=== PATIENT | female | born 1980 | race Caucasian/White ===

== ENCOUNTER 2018-08-22 17:31 | Inpatient (IN) | payer BC ==
[~2018-08-22] VITALS: Ht 157.5 cm; Wt 72.1 kg
--- NOTE | 2018-08-22 18:00 | NUR ---
ED Nurse Note: PT WALKED IN TO ER TODAY FROM HOME. AOX4. PT STATES SHE HAS HX OF ALCOHOLISM AND HAS BEEN BINGE DRINKING FOR THE PAST 2 WEEKS. PT STATES SHE DRINKS ANYWHERE FROM 750ML - 1200ML OF VODKA A DAY. LAST DRINK X TODAY AROUND 0400. PT C/O UPPER ABDOMINAL PAIN, 10/10 WITH ACID REFLUX. PT ALSO C/O NAUSEA AND 3 EPISODES OF VOMITING X THIS AM.
[2018-08-22 18:01] VITALS: BP 142/92
[2018-08-22] MEDS ORDERED: LORazepam Inj 2mg/ml 1ml IV ONE (18:30)
[2018-08-22 18:47] LABS: APPEARANCE,URINE CLEAR; BASOPHILS % (AUTO) 1.1 % (0.0-2.0); BILIRUBIN, URINE NEGATIVE (NEGATIVE); COLOR,URINE PALE YELLOW; EOSINOPHILS % (AUTO) 1.3 % (0.0-3.0); GLUCOSE, URINE (UA) NEGATIVE (NEGATIVE); HEMATOCRIT 41.5 % (37.0-47.0); KETONES,URINE NEGATIVE (NEGATIVE); LEUKOCYTE ESTERASE ,URINE NEGATIVE (NEGATIVE); LYMPHOCYTES % (AUTO) 16.3 % (20.0-45.0); MEAN CORPUSCULAR VOLUME 91 FL (80-99); MONOCYTES % (AUTO) 3.4 % (1.0-10.0); NEUTROPHILS % (AUTO) 77.9 % (45.0-75.0); NITRITE,URINE NEGATIVE (NEGATIVE); PH,URINE 8 (4.5-8.0); PLATELET COUNT 278 K/UL (150-450); PROTEIN,URINE NEGATIVE (NEGATIVE); RED BLOOD COUNT 4.57 M/UL (4.20-5.40); RED CELL DISTRIBUTION WIDTH 12.9 % (11.6-14.8); UROBILINOGEN,URINE NORMAL MG/DL (0.0-1.0)
[2018-08-22 19:06] LABS: ANION GAP 7 mmol/L (5-15); BLOOD UREA NITROGEN 8 mg/dL (7-18); CALCIUM 8.3 MG/DL (8.5-10.1); CARBON DIOXIDE 30 MMOL/L (21-32); CHLORIDE 101 MMOL/L (98-107); CREATININE 0.7 MG/DL (0.55-1.30); POTASSIUM 3.8 MMOL/L (3.5-5.1); SODIUM 138 MMOL/L (136-145)
[2018-08-22 19:11] LABS: ALANINE AMINOTRANSFERASE 37 U/L (12-78); ALBUMIN 3.4 G/DL (3.4-5.0); ALBUMIN/GLOBULIN RATIO 0.9 (1.0-2.7); ALKALINE PHOSPHATASE 103 U/L (46-116); ASPARTATE AMINO TRANSFERASE 39 U/L (15-37); BILIRUBIN,TOTAL 0.3 MG/DL (0.2-1.0)
--- NOTE | 2018-08-22 19:15 | NUR ---
ED Nurse Note: REPORT GIVEN TO JERRY PRYOR.
--- NOTE | 2018-08-22 19:35 | NUR ---
ED Nurse Note: RECIEVED REPORT FROM AM NURSE TO RESUME CARE, PT RESTING QUIETLY IN BED, AROUSES EASILY TO [facility], PT HERE FOR ABD PAIN AND WAITING FOR ADMITTOIN PLACEMENT, PT HAS PATENT SALINE LOCK IN LEFT ARM, PLACED PT ON CARDIAC MONITORING, V/S STABLE, PT DENIES CP, ABD PAIN, OR ANY PAIN AT THIS TIME, WILL RESUME CARE ORDERED AND CONTINUE TO CLOSELY MONITOR.
[2018-08-22 20:15] VITALS: BP 136/88
[2018-08-22] MEDS ORDERED: Morphine Sulfate 4mg/ml Inj (IV USE ONLY) IVP ONE (21:30)
[2018-08-22] MEDS ORDERED: Morphine Sulfate 2mg/ml Inj(IV/IM USE ONLY) IVP PRN (21:30)
[2018-08-22] MEDS ORDERED: Thiamine HCl 100 MG, Folic Acid 1 MG, Magnesium Sulfate 2,000 MG, Multivitamin - 12 Inj... IV SCH ×5 (21:30)
[2018-08-22] MEDS ORDERED: Mylanta II UD 30ml ORAL PRN (21:30)
[2018-08-22] MEDS ORDERED: Zolpidem 5mg tab ORAL PRN (21:30)
[2018-08-22] MEDS ORDERED: Miralax 17gm pkt ORAL PRN (21:30)
--- NOTE | 2018-08-22 21:33 | Emergency Room Report ---
History of Present Illness General Chief Complaint: Abdominal Pain Source: Patient Present Illness HPI 37-year-old female presents ED for evaluation. Patient complaining of abdominal pain with nausea and vomiting. States she's been drinking for the last 2 weeks. History of chronic alcohol use. Pain is sharp, epigastric, 10 out of 10, nonradiating. Denies fevers or chills. Denies chest pain or shortness of breath. No other aggravating relieving factors. Denies any other associated symptoms Allergies: Coded Allergies: No Known Allergies (Unverified , 08/22/18) Patient History Past Medical History: none Past Surgical History: none Pertinent Family History: none Social History: Reports: alcohol use; Denies: smoking, drug use Last Menstrual Period: 5 days Now: No Immunizations: UTD Reviewed Nursing Documentation: PMH: Agreed; PSxH: Agreed Nursing Documentation-PMH Past Medical History: No History, Except For Hx Cancer: Yes - skin History Of Psychiatric Problem: Yes - etoh abuse Review of Systems All Other Systems: negative except mentioned in HPI Physical Exam Vital Signs Date Time Temp Pulse Resp B/P (MAP) Pulse Ox O2 Delivery O2 Flow Rate FiO2 08/22/18 17:34 98.1 85 18 150/113 98 Room Air Sp02 EP Interpretation: reviewed, normal General Appearance: no apparent distress, alert, GCS 15, non-toxic Head: normocephalic, atraumatic Eyes: bilateral eye normal inspection, bilateral eye PERRL ENT: hearing grossly normal, normal pharynx, no angioedema, normal voice Neck: full range of motion, supple/symm/no masses Respiratory: chest non-tender, lungs clear, normal breath sounds, speaking full sentences Cardiovascular #1: regular rate, rhythm, no edema Cardiovascular #2: 2+ carotid (R), 2+ carotid (L), 2+ radial (R), 2+ radial (L) , 2+ dorsalis pedis (R), 2+ dorsalis pedis (L) Gastrointestinal: normal bowel sounds, soft, non-distended, no guarding, no rebound, tenderness - epigastric Rectal: deferred Genitourinary: normal inspection, no CVA tenderness Musculoskeletal: back normal, gait/station normal, normal range of motion, non- tender Neurologic: alert, oriented x3, responsive, motor strength/tone normal, sensory intact, speech normal Psychiatric: judgement/insight normal, memory normal, mood/affect normal, no suicidal/homicidal ideation Reflexes: 3+ bicep (R), 3+ bicep (L), 3+ tricep (R), 3+ tricep (L), 3+ knee (R) , 3+ knee (L) Skin: normal color, no rash, warm/dry, well hydrated Lymphatic: no adenopathy Medical Decision Making Diagnostic Impression: Primary Impression: Pancreatitis Qualified Codes: K85.20 - Alcohol induced acute pancreatitis without necrosis or infection Additional Impression: Alcohol intoxication Qualified Codes: F10.929 - Alcohol use, unspecified with intoxication, unspecified ER Course Hospital Course 37 yo F presents to ED c/o abd pain, vomiting Differential diagnoses include: BPH, cystitis, pyelonephritis, kidney stone Clinical course Patient placed on stretcher. phototypesetting equipment monitor. After initial history and physical I ordered labs, IV fluids, UA, pain medication Labs - no leukocytosis, Hb/Hct stable. electrolytes ok. Lipase > 2000, LFTs ok IV fluids given. Pain meds given Case discussed with Dr. Alberto and he agreed to accept the patient to his service for further care and support I feel this is a highly complex case requiring extensive working including EKG/ Rhythm strip, Xray/CT/US, Blood/urine lab work, repeat exams while in ED, and administration of strong opiates/narcotics for pain control, admission to hospital or close patient follow up. Diagnosis - acute pancreatitis, alcohol intoxication Patient admitted to floor in serious condition Labs Test 08/22/18 18:30 White Blood Count 11.0 K/UL (4.8-10.8) Red Blood Count 4.57 M/UL (4.20-5.40) Hemoglobin 14.0 G/DL (12.0-16.0) Hematocrit 41.5 % (37.0-47.0) Mean Corpuscular Volume 91 FL (80-99) Mean Corpuscular Hemoglobin 30.6 PG (27.0-31.0) Mean Corpuscular Hemoglobin Concent 33.7 G/DL (32.0-36.0) Red Cell Distribution Width 12.9 % (11.6-14.8) Platelet Count 278 K/UL (150-450) Mean Platelet Volume 4.7 FL (6.5-10.1) Neutrophils (%) (Auto) 77.9 % (45.0-75.0) Lymphocytes (%) (Auto) 16.3 % (20.0-45.0) Monocytes (%) (Auto) 3.4 % (1.0-10.0) Eosinophils (%) (Auto) 1.3 % (0.0-3.0) Basophils (%) (Auto) 1.1 % (0.0-2.0) Urine Color Pale yellow Urine Appearance Clear Urine pH 8 (4.5-8.0) Urine Specific [place] 1.010 (1.005-1.035) Urine Protein Negative (NEGATIVE) Urine Glucose (UA) Negative (NEGATIVE) Urine Ketones Negative (NEGATIVE) Urine Blood 3+ (NEGATIVE) Urine Nitrite Negative (NEGATIVE) Urine Bilirubin Negative (NEGATIVE) Urine Urobilinogen Normal MG/DL (0.0-1.0) Urine Leukocyte Esterase Negative (NEGATIVE) Urine RBC 2-4 /HPF (0 - 2) Urine WBC 0 /HPF (0 - 2) Urine Squamous Epithelial Cells Few /LPF (NONE/OCC) Urine Bacteria Moderate /HPF (NONE) Urine HCG, Qualitative Negative (NEGATIVE) Sodium Level 138 MMOL/L (136-145) Potassium Level 3.8 MMOL/L (3.5-5.1) Chloride Level 101 MMOL/L (98-107) Carbon Dioxide Level 30 MMOL/L (21-32) Anion Gap 7 mmol/L (5-15) Blood Urea Nitrogen 8 mg/dL (7-18) Creatinine 0.7 MG/DL (0.55-1.30) Estimat Glomerular Filtration Rate > 60 mL/min (>60) Glucose Level 103 MG/DL (74-106) Calcium Level 8.3 MG/DL (8.5-10.1) Total Bilirubin 0.3 MG/DL (0.2-1.0) Aspartate Amino Transf (AST/SGOT) 39 U/L (15-37) Alanine Aminotransferase (ALT/SGPT) 37 U/L (12-78) Alkaline Phosphatase 103 U/L (46-116) Total Protein 7.3 G/DL (6.4-8.2) Albumin 3.4 G/DL (3.4-5.0) Globulin 3.9 g/dL Albumin/Globulin Ratio 0.9 (1.0-2.7) Lipase > 2000 U/L (73-393) Human Chorionic Gonadotropin, Qual Negative (NEGATIVE) Serum Alcohol 60 mg/dL Last Vital Signs Date Time Temp Pulse Resp B/P (MAP) Pulse Ox O2 Delivery O2 Flow Rate FiO2 08/22/18 18:01 98.4 82 17 142/92 99 Room Air Status: improved Disposition: ADMITTED INPATIENT Condition: Serious Referrals: NOT CHOSEN IPA/,REFERRING (PCP) Pranav Robb MD Aug 22, 2018 21:33
--- NOTE | 2018-08-22 22:00 | NUR ---
ED Nurse Note: PT BEING ADMITTED AN NOW HAS ROOM FOR ADMISSION, REPORT CALLED TO FLOOR NURSE SEANRN, PT IS AWAKE AND ALERT, PREVIOUSLY MEDICATED FOR ABD PAIN WITH MORPHINE, MEDS EFFECTIVE, NO NAUSEA, IV SITE INTACT, PT BEING TAKEN TO FLOOR UNIT VIA GURNEY WITH ER-TECH, BELONGINGS LIST COMPLETED, ALL FORMS WITH PT, NAD NOTED DURING PT TRANSPSORT TO UNIT.
--- NOTE | 2018-08-22 22:40 | NUR ---
NURSE NOTES: Received pt from E.D> via melody, ARLYN, pt ambulated from gurney to the bed without any difficulty, gait steady. IV L AC #22 saline lock, patent and intact. Pt c/o abdominal pain 03/13. Will administer pain medication and admit pt to floor. Bed in lowest position and locked, side rails up x 2, call light within reach. Will continue to monitor.
--- NOTE | 2018-08-22 22:51 | NUR ---
NURSE NOTES: Pt c/o sever abdominal pain /. Morphine 1 IVP given.
--- NOTE | 2018-08-22 23:00 | NUR ---
NURSE NOTES: Pt still c/o abdominal pain. Pt vomited clear greenish emesis approx. 200ml. Informed pt that nausea medication Zofran is not due yet. Paged Dr. Smart for pt c/o abd. pain and nausea. Awaiting for call back.
--- NOTE | 2018-08-23 00:30 | NUR ---
NURSE NOTES: Received order from Dr. Smart to change Morphine and Zofran to q 3 hours. Per JERRY Cardona, she spoke with Samuel (pharmacist), per Samuel, enter these new orders once the computer comes back on.
--- NOTE | 2018-08-23 05:30 | NUR ---
NURSE NOTES: Pt is requesting additional pain medication. Pt states Morphine 1mg IVP is not helping. Paged Dr. Smart, Awaiting for response.
[2018-08-23] MEDS ORDERED: Morphine Sulfate 2mg/ml Inj(IV/IM USE ONLY) IVP PRN (06:15)
[2018-08-23 07:33] LABS: BASOPHILS % (AUTO) 0.6 % (0.0-2.0); EOSINOPHILS % (AUTO) 0.4 % (0.0-3.0); HEMATOCRIT 43.6 % (37.0-47.0); HEMOGLOBIN 15.1 G/DL (12.0-16.0); LYMPHOCYTES % (AUTO) 12.3 % (20.0-45.0); MEAN CORPUSCULAR VOLUME 90 FL (80-99); MONOCYTES % (AUTO) 3.7 % (1.0-10.0); PLATELET COUNT 286 K/UL (150-450); RED BLOOD COUNT 4.82 M/UL (4.20-5.40); RED CELL DISTRIBUTION WIDTH 12.7 % (11.6-14.8); WHITE BLOOD COUNT 10.5 K/UL (4.8-10.8)
[2018-08-23] MEDS ORDERED: NKM (07:44)
--- NOTE | 2018-08-23 07:45 | NUR ---
NURSE NOTES: Report received from outgoing RN, rounds made. Patient sleeping in supine position in bed. No distress noted on RA. IV infusing to LAC as ordered. Call light in reach, bed in lowest position, will continue to monitor.
--- NOTE | 2018-08-23 07:48 | NUR ---
HAND-OFF: Report given to JERRY Dow. Pt in stable condition.
[2018-08-23 07:52] LABS: ALANINE AMINOTRANSFERASE 31 U/L (12-78); ALBUMIN 3.2 G/DL (3.4-5.0); ALBUMIN/GLOBULIN RATIO 0.9 (1.0-2.7); ALKALINE PHOSPHATASE 106 U/L (46-116); ANION GAP 9 mmol/L (5-15); ASPARTATE AMINO TRANSFERASE 30 U/L (15-37); BILIRUBIN,TOTAL 0.6 MG/DL (0.2-1.0); BLOOD UREA NITROGEN 7 mg/dL (7-18); CARBON DIOXIDE 26 MMOL/L (21-32); CHLORIDE 100 MMOL/L (98-107); CREATININE 0.7 MG/DL (0.55-1.30); POTASSIUM 3.3 MMOL/L (3.5-5.1); SODIUM 135 MMOL/L (136-145)
[2018-08-23 08:00] VITALS: BP 138/96
[2018-08-23 08:02] LABS: PHOSPHORUS 3.3 MG/DL (2.5-4.9)
[2018-08-23 08:05] LABS: AMYLASE 742 U/L (25-115)
--- NOTE | 2018-08-23 08:10 | NUR ---
NURSE NOTES: Dr. Alberto notified of Amylase critical level 732. No orders received.
--- NOTE | 2018-08-23 08:44 | NUR ---
CASE MANAGEMENT:REVIEW 37 YR OLD FEMALE TO ER CC: DRINKING X2 WEEKS. NOW W/ABD PAIN N/V SI: PANCREATITIS. ETOH INTOXICATION 98.1 85 18 150/113 98% ON RA WBC+11.0 LIPASE>2000 AMYLASE+742 IS: IV ZOFRAN IV PEPCID 1L NS BOLUS IV ATIVAN : TO TELEMETRY INTERQUAL CRITERIA MET
[2018-08-23] MEDS: Heparin 5000 units/ml inj SUBQ SCH ×2 (09:29→22:18)
[2018-08-23] MEDS: LORazepam Inj 2mg/ml 1ml IV PRN ×3 (09:32→23:49)
--- NOTE | 2018-08-23 10:41 | General Progress Note ---
Assessment/Plan Problem List: (1) Pancreatitis ICD Codes: K85.90 - Acute pancreatitis without necrosis or infection, unspecified SNOMED: 02696755 Qualifiers: Qualified Codes: K85.20 - Alcohol induced acute pancreatitis without necrosis or infection (2) Alcohol intoxication ICD Codes: F10.929 - Alcohol use, unspecified with intoxication, unspecified SNOMED: 99971761 Qualifiers: Qualified Codes: F10.929 - Alcohol use, unspecified with intoxication, unspecified Assessment/Plan npo ivf banana bag repeat labs pain control Subjective ROS Limited/Unobtainable: Yes Allergies: Coded Allergies: No Known Allergies (Unverified , 08/22/18) Subjective abd pain Objective Last 24 Hour Vital Signs Date Time Temp Pulse Resp B/P (MAP) Pulse Ox O2 Delivery O2 Flow Rate FiO2 08/23/18 08:00 98.1 77 18 138/96 (110) 99 08/23/18 06:08 Room Air 08/23/18 05:44 98.4 82 17 136/88 99 Room Air 08/22/18 20:15 98.4 82 17 136/88 99 Room Air 08/22/18 18:01 98.4 82 17 142/92 99 Room Air 08/22/18 18:01 82 17 Room Air 08/22/18 17:34 98.1 85 18 150/113 98 Room Air Intake and Output 08/22/18 08/23/18 19:00 07:00 Intake Total 1240 ml Output Total 200 ml Balance 1040 ml Intake Oral 240 ml IV Total 1000 ml Output Emesis 200 ml # Voids 1 5 Laboratory Tests 08/22/18 18:30: White Blood Count 11.0H, Red Blood Count 4.57, Hemoglobin 14.0, Hematocrit 41.5 , Mean Corpuscular Volume 91, Mean Corpuscular Hemoglobin 30.6, Mean Corpuscular Hemoglobin Concent 33.7, Red Cell Distribution Width 12.9, Platelet Count 278, Mean Platelet Volume 4.7L, Neutrophils (%) (Auto) 77.9H, Lymphocytes (%) (Auto) 16.3L, Monocytes (%) (Auto) 3.4, Eosinophils (%) (Auto) 1.3, Basophils (%) (Auto) 1.1, Urine Color Pale yellow, Urine Appearance Clear, Urine pH 8, Urine Specific [place] 1.010, Urine Protein Negative, Urine Glucose (UA) Negative, Urine Ketones Negative, Urine Blood 3+H, Urine Nitrite Negative, Urine Bilirubin Negative, Urine Urobilinogen Normal, Urine Leukocyte Esterase Negative, Urine RBC 2-4H, Urine WBC 0, Urine Squamous Epithelial Cells Few, Urine Bacteria ModerateH, Urine HCG, Qualitative Negative, Sodium Level 138, Potassium Level 3.8, Chloride Level 101, Carbon Dioxide Level 30, Anion Gap 7, Blood Urea Nitrogen 8, Creatinine 0.7, Estimat Glomerular Filtration Rate > 60, Glucose Level 103, Calcium Level 8.3L, Total Bilirubin 0.3, Aspartate Amino Transf (AST/SGOT) 39H, Alanine Aminotransferase (ALT/SGPT) 37, Alkaline Phosphatase 103, Total Protein 7.3, Albumin 3.4, Globulin 3.9, Albumin/Globulin Ratio 0.9L, Lipase > 2000H, Human Chorionic Gonadotropin, Qual Negative, Serum Alcohol 60 08/23/18 06:27: White Blood Count 10.5, Red Blood Count 4.82, Hemoglobin 15.1, Hematocrit 43.6, Mean Corpuscular Volume 90, Mean Corpuscular Hemoglobin 31.2H, Mean Corpuscular Hemoglobin Concent 34.6, Red Cell Distribution Width 12.7, Platelet Count 286, Mean Platelet Volume 5.0L, Neutrophils (%) (Auto) 83.0H, Lymphocytes (%) (Auto) 12.3L, Monocytes (%) (Auto) 3.7, Eosinophils (%) (Auto) 0.4, Basophils (%) (Auto ) 0.6, Sodium Level 135L, Potassium Level 3.3L, Chloride Level 100, Carbon Dioxide Level 26, Anion Gap 9, Blood Urea Nitrogen 7, Creatinine 0.7, Estimat Glomerular Filtration Rate > 60, Glucose Level 108H, Calcium Level 8.0L, Total Bilirubin 0.6, Aspartate Amino Transf (AST/SGOT) 30, Alanine Aminotransferase ( ALT/SGPT) 31, Alkaline Phosphatase 106, Total Protein 6.9, Albumin 3.2L, Globulin 3.7, Albumin/Globulin Ratio 0.9L, Lipase > 2000H, Erythrocyte Sedimentation Rate 6, Phosphorus Level 3.3, Magnesium Level 1.7L, C-Reactive Protein, Quantitative < 0.4, Amylase Level 742*H Height (Feet): 5 Height (Inches): 2.00 Weight (Pounds): 160 General Appearance: alert EENT: normal ENT inspection Neck: supple Cardiovascular: tachycardia Respiratory/Chest: decreased breath sounds Abdomen: soft, hypoactive bowel sounds, tender Extremities: non-tender Joce Adams MD Aug 23, 2018 10:40
[2018-08-23] MEDS ORDERED: D5 1/2NS w/KCl 20mEq 1,000 ML IV SCH (11:30)
[2018-08-23 12:00] VITALS: BP 152/97
--- NOTE | 2018-08-23 12:47 | NUR ---
*-* INSURANCE *-* AVAILABLE CLINICALS, REVIEW AND INTERQUAL FAXED TO: [facility] FAX ALL CLINICALS TO [phone]
--- NOTE | 2018-08-23 12:54 | Consultation ---
History of Present Illness General Date patient seen: Aug 23, 2018 Chief Complaint: Abdominal Pain Present Illness HPI 37-year-old female with hx of ETOH presented to ED for evaluation of abdominal pain with nausea and vomiting. States she's been drinking for the last 2 weeks. History of chronic alcohol use. Pain is sharp, epigastric, 10 out of 10, nonradiating. She was diagnosed to have acute pancreatitis and admitted for further evaluation. Allergies: Coded Allergies: No Known Allergies (Unverified , 08/22/18) Medication History Scheduled No Known Medications* (NKM - No Known Medications*), 0 ., (Reported) Patient History Healthcare decision maker Resuscitation status Full Code Advanced Directive on File No Past Medical/Surgical History Past Medical/Surgical History: (1) Alcohol abuse Review of Systems All Other Systems: negative except mentioned in HPI Physical Exam General Appearance: WD/WN, mild distress Lines, tubes and drains: peripheral, central line HEENT: normocephalic, atraumatic Neck: non-tender, normal alignment Respiratory/Chest: chest wall non-tender, lungs clear Cardiovascular/Chest: normal peripheral pulses, normal rate Abdomen: normal bowel sounds Genitourinary/Rectal: normal genital exam Last 24 Hour Vital Signs Date Time Temp Pulse Resp B/P (MAP) Pulse Ox O2 Delivery O2 Flow Rate FiO2 08/23/18 08:00 98.1 77 18 138/96 (110) 99 08/23/18 06:08 Room Air 08/23/18 05:44 98.4 82 17 136/88 99 Room Air 08/22/18 20:15 98.4 82 17 136/88 99 Room Air 08/22/18 18:01 98.4 82 17 142/92 99 Room Air 08/22/18 18:01 82 17 Room Air 08/22/18 17:34 98.1 85 18 150/113 98 Room Air Intake and Output 08/22/18 08/23/18 19:00 07:00 Intake Total 1240 ml Output Total 200 ml Balance 1040 ml Intake Oral 240 ml IV Total 1000 ml Output Emesis 200 ml # Voids 1 5 Laboratory Tests Test 08/22/18 18:30 08/23/18 06:27 White Blood Count 11.0 K/UL (4.8-10.8) H 10.5 K/UL (4.8-10.8) Red Blood Count 4.57 M/UL (4.20-5.40) 4.82 M/UL (4.20-5.40) Hemoglobin 14.0 G/DL (12.0-16.0) 15.1 G/DL (12.0-16.0) Hematocrit 41.5 % (37.0-47.0) 43.6 % (37.0-47.0) Mean Corpuscular Volume 91 FL (80-99) 90 FL (80-99) Mean Corpuscular Hemoglobin 30.6 PG (27.0-31.0) 31.2 PG (27.0-31.0) H Mean Corpuscular Hemoglobin Concent 33.7 G/DL (32.0-36.0) 34.6 G/DL (32.0-36.0) Red Cell Distribution Width 12.9 % (11.6-14.8) 12.7 % (11.6-14.8) Platelet Count 278 K/UL (150-450) 286 K/UL (150-450) Mean Platelet Volume 4.7 FL (6.5-10.1) L 5.0 FL (6.5-10.1) L Neutrophils (%) (Auto) 77.9 % (45.0-75.0) H 83.0 % (45.0-75.0) H Lymphocytes (%) (Auto) 16.3 % (20.0-45.0) L 12.3 % (20.0-45.0) L Monocytes (%) (Auto) 3.4 % (1.0-10.0) 3.7 % (1.0-10.0) Eosinophils (%) (Auto) 1.3 % (0.0-3.0) 0.4 % (0.0-3.0) Basophils (%) (Auto) 1.1 % (0.0-2.0) 0.6 % (0.0-2.0) Urine Color Pale yellow Urine Appearance Clear Urine pH 8 (4.5-8.0) Urine Specific [place] 1.010 (1.005-1.035) Urine Protein Negative (NEGATIVE) Urine Glucose (UA) Negative (NEGATIVE) Urine Ketones Negative (NEGATIVE) Urine Blood 3+ (NEGATIVE) H Urine Nitrite Negative (NEGATIVE) Urine Bilirubin Negative (NEGATIVE) Urine Urobilinogen Normal MG/DL (0.0-1.0) Urine Leukocyte Esterase Negative (NEGATIVE) Urine RBC 2-4 /HPF (0 - 2) H Urine WBC 0 /HPF (0 - 2) Urine Squamous Epithelial Cells Few /LPF (NONE/OCC) Urine Bacteria Moderate /HPF (NONE) H Urine HCG, Qualitative Negative (NEGATIVE) Sodium Level 138 MMOL/L (136-145) 135 MMOL/L (136-145) L Potassium Level 3.8 MMOL/L (3.5-5.1) 3.3 MMOL/L (3.5-5.1) L Chloride Level 101 MMOL/L (98-107) 100 MMOL/L (98-107) Carbon Dioxide Level 30 MMOL/L (21-32) 26 MMOL/L (21-32) Anion Gap 7 mmol/L (5-15) 9 mmol/L (5-15) Blood Urea Nitrogen 8 mg/dL (7-18) 7 mg/dL (7-18) Creatinine 0.7 MG/DL (0.55-1.30) 0.7 MG/DL (0.55-1.30) Estimat Glomerular Filtration Rate > 60 mL/min (>60) > 60 mL/min (>60) Glucose Level 103 MG/DL (74-106) 108 MG/DL (74-106) H Calcium Level 8.3 MG/DL (8.5-10.1) L 8.0 MG/DL (8.5-10.1) L Total Bilirubin 0.3 MG/DL (0.2-1.0) 0.6 MG/DL (0.2-1.0) Aspartate Amino Transf (AST/SGOT) 39 U/L (15-37) H 30 U/L (15-37) Alanine Aminotransferase (ALT/SGPT) 37 U/L (12-78) 31 U/L (12-78) Alkaline Phosphatase 103 U/L (46-116) 106 U/L (46-116) Total Protein 7.3 G/DL (6.4-8.2) 6.9 G/DL (6.4-8.2) Albumin 3.4 G/DL (3.4-5.0) 3.2 G/DL (3.4-5.0) L Globulin 3.9 g/dL 3.7 g/dL Albumin/Globulin Ratio 0.9 (1.0-2.7) L 0.9 (1.0-2.7) L Lipase > 2000 U/L (73-393) H > 2000 U/L (73-393) H Human Chorionic Gonadotropin, Qual Negative (NEGATIVE) Serum Alcohol 60 mg/dL Erythrocyte Sedimentation Rate 6 MM/HR (0-20) Phosphorus Level 3.3 MG/DL (2.5-4.9) Magnesium Level 1.7 MG/DL (1.8-2.4) L C-Reactive Protein, Quantitative < 0.4 mg/dL (0.00-0.90) Amylase Level 742 U/L (25-115) *H Microbiology Date/Time Source Procedure Growth Status 08/22/18 18:30 Urine,Clean Catch Urine Culture - Preliminary NO GROWTH Resulted Height (Feet): 5 Height (Inches): 2.00 Weight (Pounds): 160 Medications Current Medications Medications (Trade) Dose Ordered Sig/Chloe Route PRN Reason Start Time Stop Time Status Last Admin Dose Admin Acetaminophen (Tylenol) 650 mg Q4H PRN ORAL fever 08/22/18 21:30 09/21/18 21:29 Al Hydroxide/Mg Hydroxide (Mylanta II) 30 ml Q6H PRN ORAL dyspepsia 08/22/18 21:30 09/21/18 21:29 Chlordiazepoxide (Librium) 25 mg Q6H PRN ORAL Agitation 08/22/18 21:30 08/29/18 21:29 Dextrose (Dextrose 50%) 25 ml Q30M PRN IV Hypoglycemia 08/22/18 21:30 09/21/18 21:29 Dextrose (Dextrose 50%) 50 ml Q30M PRN IV Hypoglycemia 08/22/18 21:30 09/21/18 21:29 Dextrose/ Electrolytes 1,000 ml @ 100 mls/hr Q10H IV 08/23/18 11:30 09/22/18 11:29 Heparin Sodium (Porcine) (Heparin 5000 units/ml) 5,000 units EVERY 12 HOURS SUBQ 08/23/18 09:00 09/22/18 08:59 08/23/18 09:29 Lorazepam (Ativan 2mg/ml 1ml) 2 mg Q1H PRN IV seizures 08/22/18 21:30 08/29/18 21:29 08/23/18 09:32 Morphine Sulfate (Morphine Sulfate) 6 mg Q3H PRN IVP For Pain 08/23/18 07:45 08/30/18 07:44 Ondansetron HCl (Zofran) 4 mg Q3HR PRN IVP Nausea & Vomiting 08/23/18 06:15 09/22/18 06:14 Polyethylene Glycol (Miralax) 17 gm HSPRN PRN ORAL Constipation 08/22/18 21:30 09/21/18 21:29 Thiamine HCl 100 mg/Folic Acid 1 mg/Magnesium Sulfate 2000 mg/ Multivitamins 10 ml/Sodium Chloride 1,015.2 ml @ 125 mls/ hr Q24H IV 08/22/18 21:30 09/21/18 21:29 08/22/18 22:40 Zolpidem Tartrate (Ambien) 5 mg HSPRN PRN ORAL Insomnia 08/22/18 21:30 08/29/18 21:29 Assessment/Plan Problem List: (1) Pancreatitis ICD Codes: K85.90 - Acute pancreatitis without necrosis or infection, unspecified SNOMED: [id number] Qualifiers: Qualified Codes: K85.20 - Alcohol induced acute pancreatitis without necrosis or infection (2) Alcohol abuse ICD Codes: F10.10 - Alcohol abuse, uncomplicated SNOMED: [id number] Assessment/Plan banana bag librium GI evaluation f/u amylase and lipase Lilo Smart MD Aug 23, 2018 12:54
--- NOTE | 2018-08-23 14:58 | History & Physical ---
History and Physical History & Physicial Dion Alberto MD Aug 23, 2018 14:58
[2018-08-23 16:00] VITALS: BP 140/108
--- NOTE | 2018-08-23 18:00 | NUR ---
NURSE NOTES: Patient sleeping on and off throughout the shift, no seizure activity, no NV, no complains of pain. Patient remains safe. Will continue to monitor.
[2018-08-23] MEDS: D5 1/2NS w/KCl 20mEq 1,000 ML IV SCH (19:01)
--- NOTE | 2018-08-23 19:40 | NUR ---
NURSE NOTES: Report taken from JERRY Dow. Patient awake and in bed, A&Ox4. Having complaints about pain in the abdominal region, radiating to her back, 12/11. She has a naltrexone implant left posterior, states that she has been feeling increased pain in the area, contact MD to evaluate. She is continually anxious and cannot find a comfotable way to lay in bed. Will stay ahead of pain with medication orders. Banana bag to be hung, monitor. IV site c/d/i and patent. Continue to monitor, bed in lowest position, call light within reach.
--- NOTE | 2018-08-23 19:45 | NUR ---
HAND-OFF: Report given to Zane EDWARDS.
[2018-08-23] MEDS: Folic Acid 1 MG, Magnesium Sulfate 2,000 MG, Multivitamin - 12 Injection 10 ML in NS w/... IV SCH (22:00)
--- NOTE | 2018-08-23 22:00 | History and Physical Report ---
DATE OF ADMISSION: 08/22/2018 CHIEF COMPLAINT: Abdominal pain. HISTORY OF PRESENT ILLNESS: This is a 37 years old female with past medical history significant for history of skin cancer, status post resection from the abdominal wall, hypothyroidism, who has presented to the hospital complaining about abdominal pain associated with nausea and vomiting. She stated that she has been having a history of extensive alcohol abuse with binge drinking. She stated that the past 2 weeks she has been drinking a lot and subsequently has been started having sharp epigastric 10/10, nonradiating abdominal pain. Shortly after initial evaluation in the emergency, the patient was confirmed to have acute pancreatitis and subsequently was admitted to the hospital for alcohol-induced pancreatitis. PAST MEDICAL HISTORY AND PAST SURGICAL HISTORY: As above, history of hypothyroidism, skin cancer, status post of resection from the abdominal wall. MEDICATIONS: At home, unknown. ALLERGIES: No known drug allergies. SOCIAL HISTORY: Denies any substance abuse. She has binge drinking alcohol problem and she smokes two cigarettes a day. FAMILY HISTORY: Noncontributory. REVIEW OF SYSTEMS: Mostly as above. Denies any dysuria, frequency, or hematuria. Complained about nausea and vomiting. Denies any hemoptysis or hematochezia. Denies any bright red blood per rectum. Denies any suicidal or homicidal ideation. PHYSICAL EXAMINATION: VITAL SIGNS: On admission, temperature 98.1, pulse of 85, respirations 18, blood pressure 150/113, repeat one is 138/96. GENERAL: The patient is awake, responsive, in no acute distress. HEAD AND NECK: Pupils are equal and reactive to light. Extraocular movements are intact. Neck was supple. No JVD. LUNGS: Good air entry. No wheezes or rales. HEART: S1, S2. Regular rhythm. No gallops. ABDOMEN: Soft, nondistended. Tender on the left side of abdomen. No rebound tenderness. EXTREMITIES: No cyanosis, clubbing, or edema. NEUROLOGIC: Cranial nerves II through XII are grossly intact. Motor is 5/5 in all extremities. Gait is intact. RECTAL: Refused and deferred. GENITOURINARY: Refused and deferred. PSYCHIATRIC: Mood and affect is intact. LABORATORY AND DIAGNOSTIC DATA: Laboratory on admission, WBC of 11, hemoglobin 14, hematocrit 41, and platelets is 278. Sodium 138, potassium 3.8, chloride 101, bicarbonate 30, BUN 8, and creatinine 0.7. Beta-HCG is negative. Lipase is greater than 2000. Amylase is 742 and CRP of less than 0.4. Magnesium 1.7. Urinalysis, +3 blood, moderate urine bacteria. Urine alcohol level is 60. ASSESSMENT: 1. Severe abdominal pain, most likely secondary to alcohol-induced pancreatitis. 2. History of alcoholism. 3. Hypokalemia. 4. Hypothyroidism. 5. History of skin cancer, status post resection. PLAN: Admit the patient to the medical floor. We will start the patient on a clear liquid diet, advance as tolerated. Follow up with Dr. Adams consultation from GI. continue on a banana bag and Librium, and monitor amylase and lipase. Code status, Full Code. DVT prophylaxis, SCD. Dion Alberto M.D. DR: JOELLE JOB#: [id number] CC:
[2018-08-23] MEDS: Thiamine HCl 100 MG in D5W 55 ML IV SCH (22:01)
[2018-08-23] MEDS: Morphine Sulfate 4mg/ml Inj (IV USE ONLY) IVP PRN (22:21)
[2018-08-24] VITALS: BP 124/78
[2018-08-24] MEDS: LORazepam Inj 2mg/ml 1ml IV PRN ×2 (01:40→05:48)
[2018-08-24] MEDS: D5 1/2NS w/KCl 20mEq 1,000 ML IV SCH ×2 (02:20→15:35)
[2018-08-24] MEDS: chlordiazePOXIDE 25mg Cap ORAL PRN ×2 (03:25→16:17)
[2018-08-24 04:00] VITALS: BP 128/82
[2018-08-24 06:40] LABS: BASOPHILS % (AUTO) 0.4 % (0.0-2.0); EOSINOPHILS % (AUTO) 2.2 % (0.0-3.0); HEMATOCRIT 39.8 % (37.0-47.0); HEMOGLOBIN 13.6 G/DL (12.0-16.0); LYMPHOCYTES % (AUTO) 13.2 % (20.0-45.0); MEAN CORPUSCULAR VOLUME 91 FL (80-99); MONOCYTES % (AUTO) 3.9 % (1.0-10.0); NEUTROPHILS % (AUTO) 80.3 % (45.0-75.0); PLATELET COUNT 242 K/UL (150-450); RED BLOOD COUNT 4.37 M/UL (4.20-5.40); RED CELL DISTRIBUTION WIDTH 12.9 % (11.6-14.8); WHITE BLOOD COUNT 8.2 K/UL (4.8-10.8)
[2018-08-24 07:11] LABS: ALANINE AMINOTRANSFERASE 24 U/L (12-78); ALBUMIN 2.9 G/DL (3.4-5.0); ALBUMIN/GLOBULIN RATIO 0.8 (1.0-2.7); ALKALINE PHOSPHATASE 102 U/L (46-116); ANION GAP 8 mmol/L (5-15); ASPARTATE AMINO TRANSFERASE 28 U/L (15-37); BILIRUBIN,TOTAL 0.6 MG/DL (0.2-1.0); BLOOD UREA NITROGEN 5 mg/dL (7-18); CALCIUM 7.9 MG/DL (8.5-10.1); CARBON DIOXIDE 27 MMOL/L (21-32); CHLORIDE 101 MMOL/L (98-107); CREATININE 0.6 MG/DL (0.55-1.30); POTASSIUM 3.8 MMOL/L (3.5-5.1); SODIUM 136 MMOL/L (136-145)
--- NOTE | 2018-08-24 07:16 | NUR ---
HAND-OFF: Report given to JERRY Ramos. Patient asleep, VS stable.
[2018-08-24 07:28] LABS: AMYLASE 1123 U/L (25-115)
[2018-08-24 07:32] LABS: PHOSPHORUS 2.7 MG/DL (2.5-4.9)
[2018-08-24 08:00] VITALS: BP 130/89
--- NOTE | 2018-08-24 08:00 | NUR ---
NURSE NOTES: RECEIVED PATIENT IN BED, RESTING AND ALERT x4. NO SIGNS OF RESPIRATORY DISTRESS. IV INTACT RUNNING FLUIDS. BED IN LOWEST POSITION, CALL LIGHT WITHIN REACH. WILL CONTINUE TO MONITOR.
[2018-08-24] MEDS: Morphine Sulfate 4mg/ml Inj (IV USE ONLY) IVP PRN ×5 (08:29→21:56)
[2018-08-24] MEDS: Heparin 5000 units/ml inj SUBQ SCH ×2 (08:37→22:05)
--- NOTE | 2018-08-24 11:00 | NUR ---
NURSE NOTES: DR DOMINGUEZ MADE AWARE OF CRITICAL LAB VALUE FOR AMYLASE. VERBALIZED THAT PATIENT HAS BEEN HAVING LOW PO INTAKE AND STILL VERY NAUSEAUS WITH 1 EP OF VOMITING. NO NEW ORDERS. WILL CONTINUE TO MONITOR.
--- NOTE | 2018-08-24 11:23 | Pulmonology Progress Note ---
Assessment/Plan Problems: (1) Pancreatitis (2) Alcohol abuse Assessment/Plan npo iv fluids Ct pancreas increase morphine to 8 mg Subjective ROS Limited/Unobtainable: No Constitutional: Reports: no symptoms HEENT: Repors: no symptoms Respiratory: Reports: no symptoms Allergies: Coded Allergies: No Known Allergies (Unverified , 08/22/18) Objective Last 24 Hour Vital Signs Date Time Temp Pulse Resp B/P (MAP) Pulse Ox O2 Delivery O2 Flow Rate FiO2 08/24/18 09:00 Room Air 08/24/18 08:00 99.0 107 20 130/89 (103) 97 08/24/18 04:00 98.5 85 18 128/82 (97) 96 08/24/18 00:00 98.7 87 18 124/78 (93) 95 08/23/18 21:00 Room Air 08/23/18 16:00 98.0 91 18 140/108 (119) 98 08/23/18 12:00 98.5 88 18 152/97 (115) 99 Intake and Output 08/23/18 08/24/18 19:00 07:00 Intake Total 625 ml 800 ml Balance 625 ml 800 ml Intake Oral 500 ml 800 ml IV Total 125 ml # Voids 2 4 Objective General Appearance: WD/WN HEENT: normocephalic, atraumatic Respiratory/Chest: chest wall non-tender, lungs clear Breasts: no masses Cardiovascular: normal rate, regularly irregular Abdomen: soft, non tender, non distended Genitourinary: normal external genitalia Extremities: no clubbing Skin: no rash Microbiology Date/Time Source Procedure Growth Status 08/22/18 18:30 Urine,Clean Catch Urine Culture - Final Mixed Gram Positive Organism Complete Laboratory Tests 08/24/18 04:45: White Blood Count 8.2, Red Blood Count 4.37, Hemoglobin 13.6, Hematocrit 39.8, Mean Corpuscular Volume 91, Mean Corpuscular Hemoglobin 31.2H, Mean Corpuscular Hemoglobin Concent 34.2, Red Cell Distribution Width 12.9, Platelet Count 242, Mean Platelet Volume 5.4L, Neutrophils (%) (Auto) 80.3H, Lymphocytes (%) (Auto) 13.2L, Monocytes (%) (Auto) 3.9, Eosinophils (%) (Auto) 2.2, Basophils (%) (Auto ) 0.4, Erythrocyte Sedimentation Rate 20, Sodium Level 136, Potassium Level 3.8 , Chloride Level 101, Carbon Dioxide Level 27, Anion Gap 8, Blood Urea Nitrogen 5L, Creatinine 0.6, Estimat Glomerular Filtration Rate > 60, Glucose Level 94, Calcium Level 7.9L, Phosphorus Level 2.7, Magnesium Level 2.3, Total Bilirubin 0.6, Aspartate Amino Transf (AST/SGOT) 28, Alanine Aminotransferase (ALT/SGPT) 24, Alkaline Phosphatase 102, C-Reactive Protein, Quantitative 5.5H, Total Protein 6.6, Albumin 2.9L, Globulin 3.7, Albumin/Globulin Ratio 0.8L, Amylase Level 1123*H, Lipase > 2000H Current Medications Medications (Trade) Dose Ordered Sig/Chloe Route PRN Reason Start Time Stop Time Status Last Admin Dose Admin Acetaminophen (Tylenol) 650 mg Q4H PRN ORAL fever 08/22/18 21:30 09/21/18 21:29 Al Hydroxide/Mg Hydroxide (Mylanta II) 30 ml Q6H PRN ORAL dyspepsia 08/22/18 21:30 09/21/18 21:29 Chlordiazepoxide (Librium) 25 mg Q6H PRN ORAL Agitation 08/22/18 21:30 08/29/18 21:29 08/24/18 03:25 Dextrose (Dextrose 50%) 25 ml Q30M PRN IV Hypoglycemia 08/22/18 21:30 09/21/18 21:29 Dextrose (Dextrose 50%) 50 ml Q30M PRN IV Hypoglycemia 08/22/18 21:30 09/21/18 21:29 Dextrose/ Electrolytes 1,000 ml @ 75 mls/hr [id number] IV 08/23/18 13:00 09/22/18 12:59 08/23/18 19:01 Folic Acid 1 mg/ Magnesium Sulfate 2000 mg/ Multivitamins 10 ml/Sodium Chloride 1,014.2 ml @ 124.876 mls/hr Q24H IV 08/23/18 21:00 09/22/18 20:59 08/23/18 22:00 Heparin Sodium (Porcine) (Heparin 5000 units/ml) 5,000 units EVERY 12 HOURS SUBQ 08/23/18 09:00 09/22/18 08:59 08/24/18 08:37 Lorazepam (Ativan 2mg/ml 1ml) 2 mg Q1H PRN IV seizures 08/22/18 21:30 08/29/18 21:29 08/24/18 05:48 Morphine Sulfate (Morphine Sulfate) 6 mg Q3H PRN IVP For Pain 08/23/18 07:45 08/30/18 07:44 08/24/18 08:29 Ondansetron HCl (Zofran) 4 mg Q3HR PRN IVP Nausea & Vomiting 08/23/18 06:15 09/22/18 06:14 08/23/18 22:22 Polyethylene Glycol (Miralax) 17 gm HSPRN PRN ORAL Constipation 08/22/18 21:30 09/21/18 21:29 Thiamine HCl 100 mg/Dextrose 56 ml @ 112 mls/hr Q24H IV 08/23/18 21:00 09/22/18 20:59 08/23/18 22:01 Zolpidem Tartrate (Ambien) 5 mg HSPRN PRN ORAL Insomnia 08/22/18 21:30 08/29/18 21:29 08/24/18 00:26 Lilo Smart MD Aug 24, 2018 11:23
[2018-08-24] MEDS ORDERED: Isovue-300 100ml vial INJ PRN (11:30)
[2018-08-24 12:00] VITALS: BP 135/96
[2018-08-24] MEDS ORDERED: Tubing IV Secondary IV ONE (14:32)
--- NOTE | 2018-08-24 15:00 | Diagnostic Imaging Report ---
EXAM: CT Abdomen and Pelvis With Intravenous Contrast CLINICAL HISTORY: PAIN TECHNIQUE: Axial computed tomography images of the abdomen and pelvis with intravenous contrast. CTDI is 14.79 mGy and DLP is 796 mGy-cm. One or more of the following dose reduction techniques were used: automated exposure control, adjustment of the mA and/or kV according to patient size, use of iterative reconstruction technique. COMPARISON: No relevant prior studies available. FINDINGS: Lung bases: 4.5 mm right lower lobe lung nodule. Pleural space: Small bilateral pleural effusions. Bibasilar lung atelectasis/airspace disease. Mediastinum: Small hiatal hernia. Thickening of the distal esophagus. ABDOMEN: Liver: Fatty prominent liver. Gallbladder and bile ducts: Unremarkable. No calcified stones. No ductal dilation. Pancreas: Small amount of fluid extends around the pancreas, correlate with labs for possible pancreatitis. No ductal dilation. Spleen: Unremarkable. No splenomegaly. Adrenals: Nodular left adrenal gland. Kidneys and ureters: Unremarkable. No solid mass. No hydronephrosis. Stomach and bowel: Distended small bowel loops with thickening and inflammatory changes of the bowel. Decreased caliber at the distal small bowel, findings may be a low-grade small bowel obstruction or an enteritis with ileus. Small to moderate free fluid. No free air or abscess. PELVIS: Appendix: No findings to suggest acute appendicitis. Bladder: Unremarkable. No mass. Reproductive: Uterus and adnexa unremarkable. ABDOMEN and PELVIS: Intraperitoneal space: See above. Bones/joints: No acute fracture. No dislocation. Soft tissues: 4.2 x 5.9 x 4.1 cm fluid collection in the left buttock subcutaneous soft tissue with rim enhancement and central linear hyperdensity surrounded by heterogeneous fatty density. Uncertain etiology, possible, infection/abscess, hematoma or injection. Vasculature: Unremarkable. No abdominal aortic aneurysm. Lymph nodes: Unremarkable. No enlarged lymph nodes. IMPRESSION: 1. Distended small bowel loops with thickening and inflammatory changes of the bowel. Decreased caliber at the distal small bowel, findings may be a low-grade small bowel obstruction or an enteritis with ileus. Small to moderate free fluid. No free air or abscess. 2. Small amount of fluid extends around the pancreas, correlate with labs for possible pancreatitis. 3. Small bilateral pleural effusions. Bibasilar lung atelectasis/airspace disease. 4. 4.5 mm right lower lobe lung nodule. 5. Fatty prominent liver. 6. 4.2 x 5.9 x 4.1 cm fluid collection in the left buttock subcutaneous soft tissue with rim enhancement and central linear hyperdensity surrounded by heterogeneous fatty density. Uncertain etiology, possible, infection/abscess, hematoma or injection. Follow-up. Correlate with history.
--- NOTE | 2018-08-24 15:12 | Internal Med Progress Note ---
Subjective Date of Service: Aug 24, 2018 Physician Name Sanjeev Flor Attending Physician Dion Alberto MD Current Medications Medications (Trade) Dose Ordered Sig/Chloe Route PRN Reason Start Time Stop Time Status Last Admin Dose Admin Acetaminophen (Tylenol) 650 mg Q4H PRN ORAL fever 08/22/18 21:30 09/21/18 21:29 Al Hydroxide/Mg Hydroxide (Mylanta II) 30 ml Q6H PRN ORAL dyspepsia 08/22/18 21:30 09/21/18 21:29 Barium Sulfate (Readi-Cat 2) 450 ml NOW PRN ORAL Radiology Procedure 08/24/18 11:30 08/26/18 11:21 Chlordiazepoxide (Librium) 25 mg Q6H PRN ORAL Agitation 08/22/18 21:30 08/29/18 21:29 08/24/18 03:25 Dextrose (Dextrose 50%) 25 ml Q30M PRN IV Hypoglycemia 08/22/18 21:30 09/21/18 21:29 Dextrose (Dextrose 50%) 50 ml Q30M PRN IV Hypoglycemia 08/22/18 21:30 09/21/18 21:29 Dextrose/ Electrolytes 1,000 ml @ 75 mls/hr [id number] IV 08/23/18 13:00 09/22/18 12:59 08/23/18 19:01 Folic Acid 1 mg/ Magnesium Sulfate 2000 mg/ Multivitamins 10 ml/Sodium Chloride 1,014.2 ml @ 124.876 mls/hr Q24H IV 08/23/18 21:00 09/22/18 20:59 08/23/18 22:00 Heparin Sodium (Porcine) (Heparin 5000 units/ml) 5,000 units EVERY 12 HOURS SUBQ 08/23/18 09:00 09/22/18 08:59 08/24/18 08:37 Iopamidol (Isovue-300 100ml) 100 ml NOW PRN INJ Radiology Procedure 08/24/18 11:30 08/26/18 11:29 Lorazepam (Ativan 2mg/ml 1ml) 2 mg Q1H PRN IV seizures 08/22/18 21:30 08/29/18 21:29 08/24/18 05:48 Morphine Sulfate (Morphine Sulfate) 8 mg Q3H PRN IVP For Pain 3/23/19 12:00 08/30/18 11:59 08/24/18 12:22 Ondansetron HCl (Zofran) 4 mg Q3HR PRN IVP Nausea & Vomiting 08/23/18 06:15 09/22/18 06:14 08/23/18 22:22 Polyethylene Glycol (Miralax) 17 gm HSPRN PRN ORAL Constipation 08/22/18 21:30 09/21/18 21:29 Thiamine HCl 100 mg/Dextrose 56 ml @ 112 mls/hr Q24H IV 08/23/18 21:00 09/22/18 20:59 08/23/18 22:01 Zolpidem Tartrate (Ambien) 5 mg HSPRN PRN ORAL Insomnia 08/22/18 21:30 08/29/18 21:29 08/24/18 00:26 Allergies: Coded Allergies: No Known Allergies (Unverified , 08/22/18) ROS Limited/Unobtainable: No Constitutional: Reports: no symptoms HEENT: Reports: no symptoms Cardiovascular: Reports: no symptoms Respiratory: Reports: no symptoms Gastrointestinal/Abdominal: Reports: abdominal pain Genitourinary: Reports: no symptoms Neurologic/Psychiatric: Reports: no symptoms Subjective 37 YO F admitted with nausea, vomiting and epigastric pain. Now pancreatitis. Cover for Int Med-DR Alberto Objective Last Vital Signs Date Time Temp Pulse Resp B/P (MAP) Pulse Ox O2 Delivery O2 Flow Rate FiO2 08/24/18 12:00 98.4 95 18 135/96 (109) 100 08/24/18 09:00 Room Air Laboratory Tests Test 08/24/18 04:45 White Blood Count 8.2 K/UL (4.8-10.8) Red Blood Count 4.37 M/UL (4.20-5.40) Hemoglobin 13.6 G/DL (12.0-16.0) Hematocrit 39.8 % (37.0-47.0) Mean Corpuscular Volume 91 FL (80-99) Mean Corpuscular Hemoglobin 31.2 PG (27.0-31.0) H Mean Corpuscular Hemoglobin Concent 34.2 G/DL (32.0-36.0) Red Cell Distribution Width 12.9 % (11.6-14.8) Platelet Count 242 K/UL (150-450) Mean Platelet Volume 5.4 FL (6.5-10.1) L Neutrophils (%) (Auto) 80.3 % (45.0-75.0) H Lymphocytes (%) (Auto) 13.2 % (20.0-45.0) L Monocytes (%) (Auto) 3.9 % (1.0-10.0) Eosinophils (%) (Auto) 2.2 % (0.0-3.0) Basophils (%) (Auto) 0.4 % (0.0-2.0) Erythrocyte Sedimentation Rate 20 MM/HR (0-20) Sodium Level 136 MMOL/L (136-145) Potassium Level 3.8 MMOL/L (3.5-5.1) Chloride Level 101 MMOL/L (98-107) Carbon Dioxide Level 27 MMOL/L (21-32) Anion Gap 8 mmol/L (5-15) Blood Urea Nitrogen 5 mg/dL (7-18) L Creatinine 0.6 MG/DL (0.55-1.30) Estimat Glomerular Filtration Rate > 60 mL/min (>60) Glucose Level 94 MG/DL (74-106) Calcium Level 7.9 MG/DL (8.5-10.1) L Phosphorus Level 2.7 MG/DL (2.5-4.9) Magnesium Level 2.3 MG/DL (1.8-2.4) Total Bilirubin 0.6 MG/DL (0.2-1.0) Aspartate Amino Transf (AST/SGOT) 28 U/L (15-37) Alanine Aminotransferase (ALT/SGPT) 24 U/L (12-78) Alkaline Phosphatase 102 U/L (46-116) C-Reactive Protein, Quantitative 5.5 mg/dL (0.00-0.90) H Total Protein 6.6 G/DL (6.4-8.2) Albumin 2.9 G/DL (3.4-5.0) L Globulin 3.7 g/dL Albumin/Globulin Ratio 0.8 (1.0-2.7) L Amylase Level 1123 U/L (25-115) *H Lipase > 2000 U/L (73-393) H Microbiology Date/Time Source Procedure Growth Status 08/22/18 18:30 Urine,Clean Catch Urine Culture - Final Mixed Gram Positive Organism Complete Intake and Output 08/23/18 08/24/18 19:00 07:00 Intake Total 625 ml 800 ml Balance 625 ml 800 ml Intake Oral 500 ml 800 ml IV Total 125 ml # Voids 2 4 Objective PHYSICAL EXAMINATION: VITAL SIGNS: On admission, temperature 98.1, pulse of 85, respirations 18, blood pressure 150/113, repeat one is 138/96. GENERAL: The patient is awake, responsive, in no acute distress. HEAD AND NECK: Pupils are equal and reactive to light. Extraocular movements are intact. Neck was supple. No JVD. LUNGS: Good air entry. No wheezes or rales. HEART: S1, S2. Regular rhythm. No gallops. ABDOMEN: Soft, nondistended. Tender on the left side of abdomen. No rebound tenderness. EXTREMITIES: No cyanosis, clubbing, or edema. NEUROLOGIC: Cranial nerves II through XII are grossly intact. Motor is 5/5 in all extremities. Gait is intact. RECTAL: Refused and deferred. GENITOURINARY: Refused and deferred. PSYCHIATRIC: Mood and affect is intact. Assessment/Plan Assessment/Plan ASSESSMENT: 1. Severe abdominal pain, secondary to alcohol-induced pancreatitis. 2. History of alcoholism. 3. Hypokalemia. 4. Hypothyroidism. 5. History of skin cancer, status post resection. PLAN: Admit the patient to the medical floor. We will start the patient on a clear liquid diet, advance as tolerated. Follow up with Dr. Adams consultation from GI. continue on a banana bag and Librium, and monitor amylase and lipase. Code status, Full Code. DVT prophylaxis, SCD. Sanjeev Flor MD Aug 24, 2018 15:12
--- NOTE | 2018-08-24 15:45 | NUR ---
NURSE NOTES: PATIENT HAD MULTIPLE EPISODES OF N/V. DR. HAGER ORDERED CT A/P. NOTIFIED OF RESULTS, DOWNGRADED DIET TO CLEAR LIQUIDS. PATIENT STILL C/O ABDOMINAL PAIN. WILL CONTINUE TO MONITOR.
[2018-08-24 16:00] VITALS: BP 131/79
--- NOTE | 2018-08-24 16:32 | NUR ---
NURSE NOTES: PATIENT C/O PAIN MEDICATION NOT EFFECTIVE. MD DOES NOT WANT TO CHANGE TO OTHER PAIN RELIEVER. ATIVAN ORDER IS FOR SEIZURES, NOT FOR ANXIETY PER MD. LIBRIUM OFFERED MULTIPLE TIMES AND PATIENT AT THIS TIME VERBALIZED WANTING TO TAKE MEDICATION. IV INTACT AND PATENT. EXPLAINED TO PATIENT PAIN R/O PANCREATITIS. EDUCATED ON SYMPTOMS OF PANCREATITIS, LAB RESULTS AND RELAYED CT RESULTS NOTED PANCREATITIS. PATIENT ANXIOUS BUT VERBALIZED UNDERSTANDING, STATED SHE HAS NEVER HAD PANCREATITIS BEFORE. WILL CONTINUE TO MONITOR.
--- NOTE | 2018-08-24 19:11 | NUR ---
HAND-OFF: Report given to JERRY Carvalho.
--- NOTE | 2018-08-24 19:30 | NUR ---
NURSE NOTES: Received report from JERRY Ramos. Received pt lying in bed, AOX4, denies any pain at this time, no nausea, no distress noted. IV L AC #22 patent and intact. IV fluid infusing as ordered. Bed in lowest position and locked, side rails up x 2, call light within reach. Will continue to monitor.
[2018-08-24 20:00] VITALS: BP 127/86
--- NOTE | 2018-08-24 20:17 | General Progress Note ---
Assessment/Plan Assessment/Plan Assessment - EtOH pancreatitis Recommendations - IVF - follow labs - avoid EtON Subjective Allergies: Coded Allergies: No Known Allergies (Unverified , 08/22/18) Subjective c/o persistent pain difficulty tolerating liquids Objective Last 24 Hour Vital Signs Date Time Temp Pulse Resp B/P (MAP) Pulse Ox O2 Delivery O2 Flow Rate FiO2 08/24/18 16:00 98.7 90 18 131/79 (96) 96 08/24/18 12:00 98.4 95 18 135/96 (109) 100 08/24/18 09:00 Room Air 08/24/18 08:00 99.0 107 20 130/89 (103) 97 08/24/18 04:00 98.5 85 18 128/82 (97) 96 08/24/18 00:00 98.7 87 18 124/78 (93) 95 08/23/18 21:00 Room Air Intake and Output 08/23/18 08/24/18 18:59 06:59 Intake Total 625 ml 800 ml Balance 625 ml 800 ml Intake Oral 500 ml 800 ml IV Total 125 ml # Voids 2 4 Laboratory Tests 08/24/18 04:45: White Blood Count 8.2, Red Blood Count 4.37, Hemoglobin 13.6, Hematocrit 39.8, Mean Corpuscular Volume 91, Mean Corpuscular Hemoglobin 31.2H, Mean Corpuscular Hemoglobin Concent 34.2, Red Cell Distribution Width 12.9, Platelet Count 242, Mean Platelet Volume 5.4L, Neutrophils (%) (Auto) 80.3H, Lymphocytes (%) (Auto) 13.2L, Monocytes (%) (Auto) 3.9, Eosinophils (%) (Auto) 2.2, Basophils (%) (Auto ) 0.4, Erythrocyte Sedimentation Rate 20, Sodium Level 136, Potassium Level 3.8 , Chloride Level 101, Carbon Dioxide Level 27, Anion Gap 8, Blood Urea Nitrogen 5L, Creatinine 0.6, Estimat Glomerular Filtration Rate > 60, Glucose Level 94, Calcium Level 7.9L, Phosphorus Level 2.7, Magnesium Level 2.3, Total Bilirubin 0.6, Aspartate Amino Transf (AST/SGOT) 28, Alanine Aminotransferase (ALT/SGPT) 24, Alkaline Phosphatase 102, C-Reactive Protein, Quantitative 5.5H, Total Protein 6.6, Albumin 2.9L, Globulin 3.7, Albumin/Globulin Ratio 0.8L, Amylase Level 1123*H, Lipase > 2000H Height (Feet): 5 Height (Inches): 2.00 Weight (Pounds): 160 Objective WDWN WW NCAT supple CTA RRR abd soft (+) epigastric TTP no edema non focal Reji Briseno MD Aug 24, 2018 20:17
[2018-08-24] MEDS: Thiamine HCl 100 MG in D5W 55 ML IV SCH (22:00)
[2018-08-24] MEDS: Folic Acid 1 MG, Magnesium Sulfate 2,000 MG, Multivitamin - 12 Injection 10 ML in NS w/... IV SCH (22:00)
[2018-08-25] VITALS: BP 128/79
[2018-08-25] MEDS: chlordiazePOXIDE 25mg Cap ORAL PRN ×2 (00:44→23:49)
--- NOTE | 2018-08-25 00:44 | NUR ---
NURSE NOTES: Pt is anxious and restless in bed requesting for Ativan medication. Informed pt that Ativan order is for seizure not for anxiety. Offered Librium to pt, pt took medication. Will continue to monitor.
[2018-08-25] MEDS: Morphine Sulfate 4mg/ml Inj (IV USE ONLY) IVP PRN ×6 (02:14→22:04)
--- NOTE | 2018-08-25 02:14 | NUR ---
NURSE NOTES: Pt c/o L posterior pain where she has implant for Naltrexone. Morphine 8mg IVP given for pain. Will continue to monitor.
[2018-08-25 04:00] VITALS: BP 119/74
[2018-08-25] MEDS: D5 1/2NS w/KCl 20mEq 1,000 ML IV SCH ×2 (05:14→18:20)
--- NOTE | 2018-08-25 07:27 | NUR ---
HAND-OFF: Report given to JERRY Reyes. Pt in stable condition.
--- NOTE | 2018-08-25 07:35 | NUR ---
NURSE NOTES: Received patient in bed, awake, alert and oriented x4. Not in acute respiratory/cardiac distress. IV intact, no s/s of infiltration. Denies nausea or vomiting @ this time. Will do pain management. Bed is in lowest position and locked. Call light and personnel items within reach. Will continue plan of care.
[2018-08-25 07:45] LABS: BASOPHILS % (AUTO) 0.4 % (0.0-2.0); EOSINOPHILS % (AUTO) 3.3 % (0.0-3.0); HEMOGLOBIN 11.8 G/DL (12.0-16.0); LYMPHOCYTES % (AUTO) 18.9 % (20.0-45.0); MEAN CORPUSCULAR VOLUME 92 FL (80-99); MONOCYTES % (AUTO) 4.9 % (1.0-10.0); NEUTROPHILS % (AUTO) 72.5 % (45.0-75.0); PLATELET COUNT 221 K/UL (150-450); RED BLOOD COUNT 3.81 M/UL (4.20-5.40); WHITE BLOOD COUNT 7.2 K/UL (4.8-10.8)
[2018-08-25 08:00] VITALS: BP 137/84
[2018-08-25] MEDS: Heparin 5000 units/ml inj SUBQ SCH ×2 (08:17→21:15)
[2018-08-25 08:41] LABS: ALANINE AMINOTRANSFERASE 24 U/L (12-78); ALBUMIN 2.8 G/DL (3.4-5.0); ALBUMIN/GLOBULIN RATIO 0.7 (1.0-2.7); ALKALINE PHOSPHATASE 93 U/L (46-116); AMYLASE 492 U/L (25-115); ANION GAP 10 mmol/L (5-15); ASPARTATE AMINO TRANSFERASE 29 U/L (15-37); BILIRUBIN,TOTAL 0.4 MG/DL (0.2-1.0); BLOOD UREA NITROGEN 3 mg/dL (7-18); CALCIUM 8.4 MG/DL (8.5-10.1); CARBON DIOXIDE 25 MMOL/L (21-32); CHLORIDE 102 MMOL/L (98-107); CREATININE 0.6 MG/DL (0.55-1.30); PHOSPHORUS 3.1 MG/DL (2.5-4.9); POTASSIUM 4.2 MMOL/L (3.5-5.1); SODIUM 137 MMOL/L (136-145)
[2018-08-25 12:00] VITALS: BP 126/87
--- NOTE | 2018-08-25 14:11 | Pulmonology Progress Note ---
Assessment/Plan Problems: (1) Pancreatitis (2) Alcohol abuse Assessment/Plan on clear liquid wants to go home Lipase still > 2000, Amylase decreasing iv fluids Ct pancreas reviewed increase morphine to 8 mg Subjective ROS Limited/Unobtainable: No Constitutional: Reports: no symptoms HEENT: Repors: no symptoms Allergies: Coded Allergies: No Known Allergies (Unverified , 08/22/18) Objective Last 24 Hour Vital Signs Date Time Temp Pulse Resp B/P (MAP) Pulse Ox O2 Delivery O2 Flow Rate FiO2 08/25/18 09:00 Room Air 08/25/18 08:00 98.3 92 20 137/84 (101) 99 08/25/18 04:00 98.7 102 19 119/74 (89) 97 08/25/18 00:00 98.7 98 18 128/79 (95) 97 08/24/18 21:00 Room Air 08/24/18 20:00 18 08/24/18 20:00 97.9 99 15 127/86 (100) 100 08/24/18 16:00 98.7 90 18 131/79 (96) 96 Intake and Output 08/24/18 08/25/18 19:00 07:00 Intake Total 725 ml 1635.132 ml Balance 725 ml 1635.132 ml Intake Oral 500 ml 480 ml IV Total 225 ml 1155.132 ml # Voids 3 5 Objective General Appearance: WD/WN HEENT: normocephalic, atraumatic Respiratory/Chest: chest wall non-tender, lungs clear Breasts: no masses Cardiovascular: normal rate, regularly irregular Abdomen: soft, non tender, non distended Genitourinary: normal external genitalia Extremities: no clubbing Skin: no rash Microbiology Date/Time Source Procedure Growth Status 08/22/18 18:30 Urine,Clean Catch Urine Culture - Final Mixed Gram Positive Organism Complete Laboratory Tests 08/25/18 05:45: White Blood Count 7.2, Red Blood Count 3.81L, Hemoglobin 11.8L, Hematocrit 35.0L , Mean Corpuscular Volume 92, Mean Corpuscular Hemoglobin 31.0, Mean Corpuscular Hemoglobin Concent 33.8, Red Cell Distribution Width 13.0, Platelet Count 221, Mean Platelet Volume 6.3L, Neutrophils (%) (Auto) 72.5, Lymphocytes ( %) (Auto) 18.9L, Monocytes (%) (Auto) 4.9, Eosinophils (%) (Auto) 3.3H, Basophils (%) (Auto) 0.4, Erythrocyte Sedimentation Rate 38H, Sodium Level 137, Potassium Level 4.2, Chloride Level 102, Carbon Dioxide Level 25, Anion Gap 10, Blood Urea Nitrogen 3L, Creatinine 0.6, Estimat Glomerular Filtration Rate > 60 , Glucose Level 76, Calcium Level 8.4L, Phosphorus Level 3.1, Magnesium Level 2.5H, Total Bilirubin 0.4, Aspartate Amino Transf (AST/SGOT) 29, Alanine Aminotransferase (ALT/SGPT) 24, Alkaline Phosphatase 93, C-Reactive Protein, Quantitative 13.0H, Total Protein 6.7, Albumin 2.8L, Globulin 3.9, Albumin/ Globulin Ratio 0.7L, Amylase Level 492H, Lipase > 2000H Current Medications Medications (Trade) Dose Ordered Sig/Chloe Route PRN Reason Start Time Stop Time Status Last Admin Dose Admin Acetaminophen (Tylenol) 650 mg Q4H PRN ORAL fever 08/22/18 21:30 09/21/18 21:29 Al Hydroxide/Mg Hydroxide (Mylanta II) 30 ml Q6H PRN ORAL dyspepsia 08/22/18 21:30 09/21/18 21:29 Barium Sulfate (Readi-Cat 2) 450 ml NOW PRN ORAL Radiology Procedure 08/24/18 11:30 08/26/18 11:21 Chlordiazepoxide (Librium) 25 mg Q6H PRN ORAL Agitation 08/22/18 21:30 08/29/18 21:29 08/25/18 00:44 Dextrose (Dextrose 50%) 25 ml Q30M PRN IV Hypoglycemia 08/22/18 21:30 09/21/18 21:29 Dextrose (Dextrose 50%) 50 ml Q30M PRN IV Hypoglycemia 08/22/18 21:30 09/21/18 21:29 Dextrose/ Electrolytes 1,000 ml @ 75 mls/hr [id number] IV 08/23/18 13:00 09/22/18 12:59 08/25/18 05:14 Folic Acid 1 mg/ Magnesium Sulfate 2000 mg/ Multivitamins 10 ml/Sodium Chloride 1,014.2 ml @ 124.876 mls/hr Q24H IV 08/23/18 21:00 09/22/18 20:59 08/24/18 22:00 Heparin Sodium (Porcine) (Heparin 5000 units/ml) 5,000 units EVERY 12 HOURS SUBQ 08/23/18 09:00 09/22/18 08:59 08/25/18 08:17 Iopamidol (Isovue-300 100ml) 100 ml NOW PRN INJ Radiology Procedure 08/24/18 11:30 08/26/18 11:29 Lorazepam (Ativan 2mg/ml 1ml) 2 mg Q1H PRN IV seizures 08/22/18 21:30 08/29/18 21:29 08/24/18 05:48 Morphine Sulfate (Morphine Sulfate) 8 mg Q3H PRN IVP For Pain 08/24/18 12:00 08/30/18 11:59 08/25/18 08:19 Ondansetron HCl (Zofran) 4 mg Q3HR PRN IVP Nausea & Vomiting 08/23/18 06:15 09/22/18 06:14 08/23/18 22:22 Polyethylene Glycol (Miralax) 17 gm HSPRN PRN ORAL Constipation 08/22/18 21:30 09/21/18 21:29 Thiamine HCl 100 mg/Dextrose 56 ml @ 112 mls/hr Q24H IV 08/23/18 21:00 09/22/18 20:59 08/24/18 22:00 Zolpidem Tartrate (Ambien) 5 mg HSPRN PRN ORAL Insomnia 08/22/18 21:30 08/29/18 21:29 08/24/18 00:26 Lilo Smart MD Aug 25, 2018 14:11
--- NOTE | 2018-08-25 14:20 | NUR ---
NURSE NOTES: Patient wanted to be off from IVF stating " It bothers me. I want to sleep. I can't sleep because of the IVF.I drink enough." RN educated on IVF and explained the risks and benefits.Patient fully understood but refusedx3. aware.
--- NOTE | 2018-08-25 14:27 | NUR ---
NURSE NOTES: Administered morphine 8mg IVP as ordered. V/S stable. Not in respiratory distress. O2 st is 98% on room air.
--- NOTE | 2018-08-25 15:21 | Internal Med Progress Note ---
Subjective Date of Service: Aug 25, 2018 Physician Name Sanjeev Flor Attending Physician Dion Alberto MD Current Medications Medications (Trade) Dose Ordered Sig/Chloe Route PRN Reason Start Time Stop Time Status Last Admin Dose Admin Acetaminophen (Tylenol) 650 mg Q4H PRN ORAL fever 08/22/18 21:30 09/21/18 21:29 Al Hydroxide/Mg Hydroxide (Mylanta II) 30 ml Q6H PRN ORAL dyspepsia 08/22/18 21:30 09/21/18 21:29 Barium Sulfate (Readi-Cat 2) 450 ml NOW PRN ORAL Radiology Procedure 08/24/18 11:30 08/26/18 11:21 Chlordiazepoxide (Librium) 25 mg Q6H PRN ORAL Agitation 08/22/18 21:30 08/29/18 21:29 08/25/18 00:44 Dextrose (Dextrose 50%) 25 ml Q30M PRN IV Hypoglycemia 08/22/18 21:30 09/21/18 21:29 Dextrose (Dextrose 50%) 50 ml Q30M PRN IV Hypoglycemia 08/22/18 21:30 09/21/18 21:29 Dextrose/ Electrolytes 1,000 ml @ 75 mls/hr [id number] IV 08/23/18 13:00 09/22/18 12:59 08/25/18 05:14 Folic Acid 1 mg/ Magnesium Sulfate 2000 mg/ Multivitamins 10 ml/Sodium Chloride 1,014.2 ml @ 124.876 mls/hr Q24H IV 08/23/18 21:00 09/22/18 20:59 08/24/18 22:00 Heparin Sodium (Porcine) (Heparin 5000 units/ml) 5,000 units EVERY 12 HOURS SUBQ 08/23/18 09:00 09/22/18 08:59 08/25/18 08:17 Iopamidol (Isovue-300 100ml) 100 ml NOW PRN INJ Radiology Procedure 08/24/18 11:30 08/26/18 11:29 Lorazepam (Ativan 2mg/ml 1ml) 2 mg Q1H PRN IV seizures 08/22/18 21:30 08/29/18 21:29 08/24/18 05:48 Morphine Sulfate (Morphine Sulfate) 8 mg Q3H PRN IVP For Pain 08/24/18 12:00 08/30/18 11:59 08/25/18 14:27 Ondansetron HCl (Zofran) 4 mg Q3HR PRN IVP Nausea & Vomiting 08/23/18 06:15 09/22/18 06:14 08/23/18 22:22 Polyethylene Glycol (Miralax) 17 gm HSPRN PRN ORAL Constipation 08/22/18 21:30 09/21/18 21:29 Thiamine HCl 100 mg/Dextrose 56 ml @ 112 mls/hr Q24H IV 08/23/18 21:00 09/22/18 20:59 08/24/18 22:00 Zolpidem Tartrate (Ambien) 5 mg HSPRN PRN ORAL Insomnia 08/22/18 21:30 08/29/18 21:29 08/24/18 00:26 Allergies: Coded Allergies: No Known Allergies (Unverified , 08/22/18) ROS Limited/Unobtainable: No Constitutional: Reports: no symptoms HEENT: Reports: no symptoms Cardiovascular: Reports: no symptoms Respiratory: Reports: no symptoms Gastrointestinal/Abdominal: Reports: abdominal pain Neurologic/Psychiatric: Reports: no symptoms Subjective 37 YO F admitted with nausea, vomiting and epigastric pain. Now pancreatitis. Cover for Int Vladimir-DR Alberto Objective Last Vital Signs Date Time Temp Pulse Resp B/P (MAP) Pulse Ox O2 Delivery O2 Flow Rate FiO2 08/25/18 12:00 97.8 98 20 126/87 (100) 99 08/25/18 09:00 Room Air Laboratory Tests Test 08/25/18 05:45 White Blood Count 7.2 K/UL (4.8-10.8) Red Blood Count 3.81 M/UL (4.20-5.40) L Hemoglobin 11.8 G/DL (12.0-16.0) L Hematocrit 35.0 % (37.0-47.0) L Mean Corpuscular Volume 92 FL (80-99) Mean Corpuscular Hemoglobin 31.0 PG (27.0-31.0) Mean Corpuscular Hemoglobin Concent 33.8 G/DL (32.0-36.0) Red Cell Distribution Width 13.0 % (11.6-14.8) Platelet Count 221 K/UL (150-450) Mean Platelet Volume 6.3 FL (6.5-10.1) L Neutrophils (%) (Auto) 72.5 % (45.0-75.0) Lymphocytes (%) (Auto) 18.9 % (20.0-45.0) L Monocytes (%) (Auto) 4.9 % (1.0-10.0) Eosinophils (%) (Auto) 3.3 % (0.0-3.0) H Basophils (%) (Auto) 0.4 % (0.0-2.0) Erythrocyte Sedimentation Rate 38 MM/HR (0-20) H Sodium Level 137 MMOL/L (136-145) Potassium Level 4.2 MMOL/L (3.5-5.1) Chloride Level 102 MMOL/L (98-107) Carbon Dioxide Level 25 MMOL/L (21-32) Anion Gap 10 mmol/L (5-15) Blood Urea Nitrogen 3 mg/dL (7-18) L Creatinine 0.6 MG/DL (0.55-1.30) Estimat Glomerular Filtration Rate > 60 mL/min (>60) Glucose Level 76 MG/DL (74-106) Calcium Level 8.4 MG/DL (8.5-10.1) L Phosphorus Level 3.1 MG/DL (2.5-4.9) Magnesium Level 2.5 MG/DL (1.8-2.4) H Total Bilirubin 0.4 MG/DL (0.2-1.0) Aspartate Amino Transf (AST/SGOT) 29 U/L (15-37) Alanine Aminotransferase (ALT/SGPT) 24 U/L (12-78) Alkaline Phosphatase 93 U/L (46-116) C-Reactive Protein, Quantitative 13.0 mg/dL (0.00-0.90) H Total Protein 6.7 G/DL (6.4-8.2) Albumin 2.8 G/DL (3.4-5.0) L Globulin 3.9 g/dL Albumin/Globulin Ratio 0.7 (1.0-2.7) L Amylase Level 492 U/L (25-115) H Lipase > 2000 U/L (73-393) H Microbiology Date/Time Source Procedure Growth Status 08/22/18 18:30 Urine,Clean Catch Urine Culture - Final Mixed Gram Positive Organism Complete Intake and Output 08/24/18 08/25/18 19:00 07:00 Intake Total 725 ml 1635.132 ml Balance 725 ml 1635.132 ml Intake Oral 500 ml 480 ml IV Total 225 ml 1155.132 ml # Voids 3 5 Objective PHYSICAL EXAMINATION: VITAL SIGNS: On admission, temperature 98.1, pulse of 85, respirations 18, blood pressure 150/113, repeat one is 138/96. GENERAL: The patient is awake, responsive, in no acute distress. HEAD AND NECK: Pupils are equal and reactive to light. Extraocular movements are intact. Neck was supple. No JVD. LUNGS: Good air entry. No wheezes or rales. HEART: S1, S2. Regular rhythm. No gallops. ABDOMEN: Soft, nondistended. Tender on the left side of abdomen. No rebound tenderness. EXTREMITIES: No cyanosis, clubbing, or edema. NEUROLOGIC: Cranial nerves II through XII are grossly intact. Motor is 5/5 in all extremities. Gait is intact. RECTAL: Refused and deferred. GENITOURINARY: Refused and deferred. PSYCHIATRIC: Mood and affect is intact. Assessment/Plan Assessment/Plan ASSESSMENT: 1. Severe abdominal pain, secondary to alcohol-induced pancreatitis. 2. History of alcoholism. 3. Hypokalemia. 4. Hypothyroidism. 5. History of skin cancer, status post resection. PLAN: Admit the patient to the medical floor. advance to full diet, advance as tolerated per GI. Follow up with Dr. Adams consultation from GI. continue on a banana bag and Librium, and monitor amylase and lipase. Code status, Full Code. DVT prophylaxis, SCD. Sanjeev Flor MD Aug 25, 2018 15:21
--- NOTE | 2018-08-25 15:58 | NUR ---
CASE MANAGEMENT: REVIEW 08/25/2018 SI: PANCREATITIS. ETOH INTOXICATION T 97.8 HR 98 RR 20 B/P 126/87 SATS 99% ON RA BUN 3 CA 8.4 MG 2.5 AMYLASE 492 IS: IVF @ 75 mL/HR MULTIVITAMINS IV @ 125 mL/HR THIAMINE IV Q24H MED/SURG STATUS
[2018-08-25 16:00] VITALS: BP 118/75
--- NOTE | 2018-08-25 18:55 | NUR ---
NURSE NOTES: given morphine IVP. V/S stable and not in respiratory distress.
--- NOTE | 2018-08-25 19:00 | NUR ---
NURSE NOTES: Patient still refused IVF. RN explained the risks and benefits.
--- NOTE | 2018-08-25 19:16 | NUR ---
HAND-OFF: Report given to Deven, patient is in stable condition.
--- NOTE | 2018-08-25 19:30 | NUR ---
NURSE NOTES: Received report from JERRY Reyes. Received pt lying in bed, AOX4, denies pain at this time, no nausea or vomiting, no distress noted. Bed in lowest position and locked, side rails up x 2, call light within reach. Will continue to monitor.
--- NOTE | 2018-08-25 19:45 | General Progress Note ---
Assessment/Plan Assessment/Plan Assessment - EtOH pancreatitis Recommendations - IVF - follow labs - continue clears - avoid EtON Subjective Allergies: Uncoded Allergies: Lactose intolerance (Adverse Reaction, Mild, 08/25/18) Abdominal pain Subjective abd pain better less difficulty tolerating liquids Objective Last 24 Hour Vital Signs Date Time Temp Pulse Resp B/P (MAP) Pulse Ox O2 Delivery O2 Flow Rate FiO2 08/25/18 16:00 98.7 84 18 118/75 (89) 99 08/25/18 12:00 97.8 98 20 126/87 (100) 99 08/25/18 09:00 Room Air 08/25/18 08:00 98.3 92 20 137/84 (101) 99 08/25/18 04:00 98.7 102 19 119/74 (89) 97 08/25/18 00:00 98.7 98 18 128/79 (95) 97 08/24/18 21:00 Room Air 08/24/18 20:00 18 08/24/18 20:00 97.9 99 15 127/86 (100) 100 Intake and Output 08/24/18 08/25/18 19:00 07:00 Intake Total 725 ml 1635.132 ml Balance 725 ml 1635.132 ml Intake Oral 500 ml 480 ml IV Total 225 ml 1155.132 ml # Voids 3 5 Laboratory Tests 08/25/18 05:45: White Blood Count 7.2, Red Blood Count 3.81L, Hemoglobin 11.8L, Hematocrit 35.0L , Mean Corpuscular Volume 92, Mean Corpuscular Hemoglobin 31.0, Mean Corpuscular Hemoglobin Concent 33.8, Red Cell Distribution Width 13.0, Platelet Count 221, Mean Platelet Volume 6.3L, Neutrophils (%) (Auto) 72.5, Lymphocytes ( %) (Auto) 18.9L, Monocytes (%) (Auto) 4.9, Eosinophils (%) (Auto) 3.3H, Basophils (%) (Auto) 0.4, Erythrocyte Sedimentation Rate 38H, Sodium Level 137, Potassium Level 4.2, Chloride Level 102, Carbon Dioxide Level 25, Anion Gap 10, Blood Urea Nitrogen 3L, Creatinine 0.6, Estimat Glomerular Filtration Rate > 60 , Glucose Level 76, Calcium Level 8.4L, Phosphorus Level 3.1, Magnesium Level 2.5H, Total Bilirubin 0.4, Aspartate Amino Transf (AST/SGOT) 29, Alanine Aminotransferase (ALT/SGPT) 24, Alkaline Phosphatase 93, C-Reactive Protein, Quantitative 13.0H, Total Protein 6.7, Albumin 2.8L, Globulin 3.9, Albumin/ Globulin Ratio 0.7L, Amylase Level 492H, Lipase > 2000H Height (Feet): 5 Height (Inches): 2.00 Weight (Pounds): 160 Objective WDWN WW NCAT supple CTA RRR abd soft (+) epigastric TTP no edema non focal Reji Briseno MD Aug 25, 2018 19:45
[2018-08-25 20:00] VITALS: BP 129/72
[2018-08-25] MEDS: Folic Acid 1 MG, Magnesium Sulfate 2,000 MG, Multivitamin - 12 Injection 10 ML in NS w/... IV SCH (21:09)
[2018-08-25] MEDS: Thiamine HCl 100 MG in D5W 55 ML IV SCH (21:09)
--- NOTE | 2018-08-25 22:20 | NUR ---
NURSE NOTES: Pt is complaining of left lower back ache and requesting for numbing cream. Texted Dr. Smart, awaiting for reply.
--- NOTE | 2018-08-25 22:50 | NUR ---
NURSE NOTES: Dr. Smart replied order numbing cream for pt's left lower back. Will carry out order.
--- NOTE | 2018-08-25 23:40 | NUR ---
NURSE NOTES: Per KRUPA Esquivel Lidocaine 5% cream not available anywhere in the hospital, night locker or E.D.
[2018-08-26] VITALS: BP 113/93
--- NOTE | 2018-08-26 | NUR ---
NURSE NOTES: Lidocaine 2% Jelly ordered for left lower back pain. Awaiting for pharmacy to verify order.
[2018-08-26] MEDS ORDERED: Lidocaine HCl 2% Jelly 6ml Tube TOPIC ONE ×2 (00:06→00:15)
--- NOTE | 2018-08-26 00:16 | NUR ---
NURSE NOTES: Lidocaine 2% cream applied to pt's left lower back. Will continue to monitor.
[2018-08-26] MEDS: Morphine Sulfate 4mg/ml Inj (IV USE ONLY) IVP PRN ×6 (01:42→21:32)
[2018-08-26 04:00] VITALS: BP 111/76
--- NOTE | 2018-08-26 05:06 | NUR ---
NURSE NOTES: Pt wants to be disconnected from IV fluid. Pt states "I want to be disconnected from the IV fluid because I can't sleep, the machine keeps on beeping". Pt disconnected from IV fluid at this time per pt's request.
--- NOTE | 2018-08-26 06:21 | NUR ---
NURSE NOTES: Pt still refuse banana bag IVF. Risk and benefits explained.
--- NOTE | 2018-08-26 07:07 | NUR ---
HAND-OFF: Report given to JERRY Kendall. Pt in stable condition.
[2018-08-26] MEDS: D5 1/2NS w/KCl 20mEq 1,000 ML IV SCH ×2 (07:40→21:00)
[2018-08-26 07:53] LABS: BASOPHILS % (AUTO) 0.6 % (0.0-2.0); EOSINOPHILS % (AUTO) 3.9 % (0.0-3.0); HEMATOCRIT 37.2 % (37.0-47.0); HEMOGLOBIN 12.5 G/DL (12.0-16.0); LYMPHOCYTES % (AUTO) 23.6 % (20.0-45.0); MEAN CORPUSCULAR VOLUME 92 FL (80-99); MONOCYTES % (AUTO) 5.8 % (1.0-10.0); PLATELET COUNT 244 K/UL (150-450); RED BLOOD COUNT 4.06 M/UL (4.20-5.40)
[2018-08-26 08:00] VITALS: BP 120/76
--- NOTE | 2018-08-26 08:00 | NUR ---
NURSE NOTES: Received report from Deven Velasquez pt a/a/o laying in bed with no signs of distress or other issues at this time. during morning radiology teacher noted pt has a bump on the left lower back, pt c/o of pain. pt stated that she just to have an implant, RN will notify . IV on the left hand gauge #22 running D5 1/2 NS +20mEq@75ml/hr. pt on full liquid diet, pt is tolerating well with no signs of n/v. call light within reach, bed in lowest position. side rales up x2. I will f/u as needed.
[2018-08-26] MEDS: Heparin 5000 units/ml inj SUBQ SCH ×2 (08:33→20:26)
[2018-08-26 08:34] LABS: ALANINE AMINOTRANSFERASE 48 U/L (12-78); ALBUMIN 2.9 G/DL (3.4-5.0); ALBUMIN/GLOBULIN RATIO 0.7 (1.0-2.7); ALKALINE PHOSPHATASE 108 U/L (46-116); AMYLASE 280 U/L (25-115); ANION GAP 11 mmol/L (5-15); ASPARTATE AMINO TRANSFERASE 62 U/L (15-37); BILIRUBIN,TOTAL 0.4 MG/DL (0.2-1.0); BLOOD UREA NITROGEN 3 mg/dL (7-18); CALCIUM 8.2 MG/DL (8.5-10.1); CARBON DIOXIDE 27 MMOL/L (21-32); CHLORIDE 101 MMOL/L (98-107); CREATININE 0.6 MG/DL (0.55-1.30); PHOSPHORUS 3.6 MG/DL (2.5-4.9); POTASSIUM 3.7 MMOL/L (3.5-5.1); SODIUM 139 MMOL/L (136-145)
[2018-08-26] MEDS: chlordiazePOXIDE 25mg Cap ORAL PRN ×2 (10:27→20:26)
--- NOTE | 2018-08-26 11:09 | NUR ---
*-* INSURANCE *-* UPDATED CLINICALS, REVIEW HAVE BEEN FAXED TO: [facility] FAX ALL CLINICALS TO [phone]
--- NOTE | 2018-08-26 11:57 | Pulmonology Progress Note ---
Assessment/Plan Problems: (1) Pancreatitis (2) Alcohol abuse Assessment/Plan advance diet wants to go home Lipase still > 2000, Amylase decreasing iv fluids Ct pancreas reviewed increase morphine to 8 mg Subjective ROS Limited/Unobtainable: No Constitutional: Reports: no symptoms HEENT: Repors: no symptoms Respiratory: Reports: no symptoms Allergies: Uncoded Allergies: Lactose intolerance (Adverse Reaction, Mild, 08/25/18) Abdominal pain Objective Last 24 Hour Vital Signs Date Time Temp Pulse Resp B/P (MAP) Pulse Ox O2 Delivery O2 Flow Rate FiO2 08/26/18 09:02 98.6 08/26/18 08:00 98.6 80 20 120/76 (91) 100 08/26/18 04:00 98.3 85 18 111/76 (88) 100 08/26/18 00:00 97.2 95 17 113/93 (100) 95 08/25/18 21:00 Room Air 08/25/18 20:00 97.7 87 17 129/72 (91) 100 08/25/18 16:00 98.7 84 18 118/75 (89) 99 08/25/18 12:00 97.8 98 20 126/87 (100) 99 Intake and Output 08/25/18 08/26/18 19:00 07:00 Intake Total 625 ml 1535.008 ml Balance 625 ml 1535.008 ml Intake Oral 400 ml 480 ml IV Total 225 ml 1055.008 ml # Voids 2 6 Objective General Appearance: WD/WN HEENT: normocephalic, atraumatic Respiratory/Chest: chest wall non-tender, lungs clear Breasts: no masses Cardiovascular: normal rate, regularly irregular Abdomen: soft, non tender, non distended Genitourinary: normal external genitalia Extremities: no clubbing Skin: no rash Laboratory Tests 08/26/18 05:41: White Blood Count 6.0, Red Blood Count 4.06L, Hemoglobin 12.5, Hematocrit 37.2, Mean Corpuscular Volume 92, Mean Corpuscular Hemoglobin 30.9, Mean Corpuscular Hemoglobin Concent 33.7, Red Cell Distribution Width 13.0, Platelet Count 244, Mean Platelet Volume 5.4L, Neutrophils (%) (Auto) 66.0, Lymphocytes (%) (Auto) 23.6, Monocytes (%) (Auto) 5.8, Eosinophils (%) (Auto) 3.9H, Basophils (%) (Auto ) 0.6, Erythrocyte Sedimentation Rate 79H, Sodium Level 139, Potassium Level 3.7 , Chloride Level 101, Carbon Dioxide Level 27, Anion Gap 11, Blood Urea Nitrogen 3L, Creatinine 0.6, Estimat Glomerular Filtration Rate > 60, Glucose Level 71L, Calcium Level 8.2L, Phosphorus Level 3.6, Magnesium Level 2.5H, Total Bilirubin 0.4, Aspartate Amino Transf (AST/SGOT) 62H, Alanine Aminotransferase (ALT/SGPT) 48, Alkaline Phosphatase 108, C-Reactive Protein, Quantitative 10.6H, Total Protein 7.0, Albumin 2.9L, Globulin 4.1, Albumin/ Globulin Ratio 0.7L, Amylase Level 280H, Lipase > 2000H Current Medications Medications (Trade) Dose Ordered Sig/Chloe Route PRN Reason Start Time Stop Time Status Last Admin Dose Admin Acetaminophen (Tylenol) 650 mg Q4H PRN ORAL fever 08/22/18 21:30 09/21/18 21:29 Al Hydroxide/Mg Hydroxide (Mylanta II) 30 ml Q6H PRN ORAL dyspepsia 08/22/18 21:30 09/21/18 21:29 Chlordiazepoxide (Librium) 25 mg Q6H PRN ORAL Agitation 08/22/18 21:30 08/29/18 21:29 08/26/18 10:27 Dextrose (Dextrose 50%) 25 ml Q30M PRN IV Hypoglycemia 08/22/18 21:30 09/21/18 21:29 Dextrose (Dextrose 50%) 50 ml Q30M PRN IV Hypoglycemia 08/22/18 21:30 09/21/18 21:29 Dextrose/ Electrolytes 1,000 ml @ 75 mls/hr [id number] IV 08/23/18 13:00 09/22/18 12:59 08/25/18 05:14 Folic Acid 1 mg/ Magnesium Sulfate 2000 mg/ Multivitamins 10 ml/Sodium Chloride 1,014.2 ml @ 124.876 mls/hr Q24H IV 08/23/18 21:00 09/22/18 20:59 08/25/18 21:09 Heparin Sodium (Porcine) (Heparin 5000 units/ml) 5,000 units EVERY 12 HOURS SUBQ 08/23/18 09:00 09/22/18 08:59 08/26/18 08:33 Lorazepam (Ativan 2mg/ml 1ml) 2 mg Q1H PRN IV seizures 08/22/18 21:30 08/29/18 21:29 08/24/18 05:48 Morphine Sulfate (Morphine Sulfate) 8 mg Q3H PRN IVP For Pain 08/24/18 12:00 08/30/18 11:59 08/26/18 11:26 Ondansetron HCl (Zofran) 4 mg Q3HR PRN IVP Nausea & Vomiting 08/23/18 06:15 09/22/18 06:14 08/23/18 22:22 Polyethylene Glycol (Miralax) 17 gm HSPRN PRN ORAL Constipation 08/22/18 21:30 09/21/18 21:29 Thiamine HCl 100 mg/Dextrose 56 ml @ 112 mls/hr Q24H IV 08/23/18 21:00 09/22/18 20:59 08/25/18 21:09 Zolpidem Tartrate (Ambien) 5 mg HSPRN PRN ORAL Insomnia 08/22/18 21:30 08/29/18 21:29 08/24/18 00:26 Lilo Smart MD Aug 26, 2018 11:57
[2018-08-26 12:00] VITALS: BP 124/87
--- NOTE | 2018-08-26 12:23 | GI Progress Note ---
Assessment/Plan Problems: (1) Abscess of buttock ICD Codes: L02.31 - Cutaneous abscess of buttock SNOMED: 74528687 (2) Pancreatitis ICD Codes: K85.90 - Acute pancreatitis without necrosis or infection, unspecified SNOMED: 10565674 Qualifiers: Qualified Codes: K85.20 - Alcohol induced acute pancreatitis without necrosis or infection (3) Alcohol intoxication ICD Codes: F10.929 - Alcohol use, unspecified with intoxication, unspecified SNOMED: 66738869 Qualifiers: Qualified Codes: F10.929 - Alcohol use, unspecified with intoxication, unspecified (4) Alcohol abuse ICD Codes: F10.10 - Alcohol abuse, uncomplicated SNOMED: 61563714 Status: progressing Status Narrative Discussed with Dr. Adams Assessment/Plan Assessment - EtOH pancreatitis - Lipase levels remain high - Abdominal pelvis CT reviewed, noted with left buttocks abscess Recommendations - IVF - follow labs - FLD, advance as tolerated - avoid EtOH trend lipase abx The patient was seen and examined at bedside and all new and available data was reviewed in the patients chart. I agree with the above findings, impression and plan. (Patient seen earlier today. Signature stamp does not reflect patient encounter time.). - Joce Adams MD Subjective Subjective Patient complains of left lower buttocks pain Tolerating full liquid diet Objective Last 24 Hour Vital Signs Date Time Temp Pulse Resp B/P (MAP) Pulse Ox O2 Delivery O2 Flow Rate FiO2 08/26/18 09:02 98.6 08/26/18 08:00 98.6 80 20 120/76 (91) 100 08/26/18 04:00 98.3 85 18 111/76 (88) 100 08/26/18 00:00 97.2 95 17 113/93 (100) 95 08/25/18 21:00 Room Air 08/25/18 20:00 97.7 87 17 129/72 (91) 100 08/25/18 16:00 98.7 84 18 118/75 (89) 99 Intake and Output 08/25/18 08/26/18 19:00 07:00 Intake Total 625 ml 1535.008 ml Balance 625 ml 1535.008 ml Intake Oral 400 ml 480 ml IV Total 225 ml 1055.008 ml # Voids 2 6 Laboratory Tests Test 08/26/18 05:41 White Blood Count 6.0 K/UL (4.8-10.8) Red Blood Count 4.06 M/UL (4.20-5.40) L Hemoglobin 12.5 G/DL (12.0-16.0) Hematocrit 37.2 % (37.0-47.0) Mean Corpuscular Volume 92 FL (80-99) Mean Corpuscular Hemoglobin 30.9 PG (27.0-31.0) Mean Corpuscular Hemoglobin Concent 33.7 G/DL (32.0-36.0) Red Cell Distribution Width 13.0 % (11.6-14.8) Platelet Count 244 K/UL (150-450) Mean Platelet Volume 5.4 FL (6.5-10.1) L Neutrophils (%) (Auto) 66.0 % (45.0-75.0) Lymphocytes (%) (Auto) 23.6 % (20.0-45.0) Monocytes (%) (Auto) 5.8 % (1.0-10.0) Eosinophils (%) (Auto) 3.9 % (0.0-3.0) H Basophils (%) (Auto) 0.6 % (0.0-2.0) Erythrocyte Sedimentation Rate 79 MM/HR (0-20) H Sodium Level 139 MMOL/L (136-145) Potassium Level 3.7 MMOL/L (3.5-5.1) Chloride Level 101 MMOL/L (98-107) Carbon Dioxide Level 27 MMOL/L (21-32) Anion Gap 11 mmol/L (5-15) Blood Urea Nitrogen 3 mg/dL (7-18) L Creatinine 0.6 MG/DL (0.55-1.30) Estimat Glomerular Filtration Rate > 60 mL/min (>60) Glucose Level 71 MG/DL (74-106) L Calcium Level 8.2 MG/DL (8.5-10.1) L Phosphorus Level 3.6 MG/DL (2.5-4.9) Magnesium Level 2.5 MG/DL (1.8-2.4) H Total Bilirubin 0.4 MG/DL (0.2-1.0) Aspartate Amino Transf (AST/SGOT) 62 U/L (15-37) H Alanine Aminotransferase (ALT/SGPT) 48 U/L (12-78) Alkaline Phosphatase 108 U/L (46-116) C-Reactive Protein, Quantitative 10.6 mg/dL (0.00-0.90) H Total Protein 7.0 G/DL (6.4-8.2) Albumin 2.9 G/DL (3.4-5.0) L Globulin 4.1 g/dL Albumin/Globulin Ratio 0.7 (1.0-2.7) L Amylase Level 280 U/L (25-115) H Lipase > 2000 U/L (73-393) H Height (Feet): 5 Height (Inches): 2.00 Weight (Pounds): 160 General Appearance: WD/WN, no apparent distress, alert Cardiovascular: normal rate Respiratory/Chest: normal breath sounds, no respiratory distress Abdominal Exam: normal bowel sounds, non tender, soft Extremities: normal range of motion, non-tender Maria E Meng NP Aug 26, 2018 12:23
--- NOTE | 2018-08-26 12:59 | NUR ---
CASE MANAGEMENT:REVIEW 08/26/18 SI: PANCREATITIS. ETOH INTOXICATION 98.6 80 20 120/76 100% ON RA GLUCOSE-71 LIPASE>2000 AMYLASE+280 IS: IV BANANA BAG Q24 IV MORPHINE Q3HRS PRN IV THIAMINE Q24 IVF@ 75/HR HEPARIN SQ Q12 LIBRIUM PO Q6HRS PRN : MED/SURG STATUS 3 [facility]
[2018-08-26] MEDS ORDERED: LORazepam 1mg tab ORAL PRN (13:45)
[2018-08-26] MEDS: LORazepam Inj 2mg/ml 1ml IV PRN ×2 (14:04→22:51)
--- NOTE | 2018-08-26 14:16 | Consultation ---
History of Present Illness General Date patient seen: Aug 26, 2018 Reason for Hospitalization: Abdominal Pain Present Illness HPI This is a very pleasant 37-year-old female with history of EtOH abuse who is been in recovery for some time now with occasional relapses. Patient with history of subcutaneous pain control implants which have been placed by her outpatient silk screen painter. States that she had an initial subcutaneous implant placed in the left lower back last year and implant is only good for a few months. Had the second implant placed a few months later in June 2018. After placement of second implant she began to notice some discomfort in the area and initially identified some cellulitis. She had been seen as an outpatient and had been given reassurance but continued to have discomfort and mass identified in the subcutis tissues just medial to implant placement. She currently presents to [facility] for evaluation of acute pancreatitis after episode of binge drinking/relapse. CT scan was performed and identified likely abscess/fluid collection in the left lower back/ flank near prior capsule insertion site. Surgery called to evaluate. Patient seen, patient evaluated, chart reviewed. Spoke with patient at bedside and her mother who was on the phone regarding clinical findings and care plan. Patient states that is because her discomfort when she lays and during sleep. States she can feel the mass and is very uncomfortable. Denies any nausea vomiting fever chills. Denies any drainage. Allergies: Uncoded Allergies: Lactose intolerance (Adverse Reaction, Mild, 08/25/18) Abdominal pain Medication History Scheduled No Known Medications* (NKM - No Known Medications*), 0 ., (Reported) Patient History History Provided By: Patient, Family Member, Medical Record, PMD Healthcare decision maker Resuscitation status Full Code Advanced Directive on File No Past Medical/Surgical History Past Medical/Surgical History: (1) Alcohol intoxication (2) Pancreatitis (3) Abscess of buttock Review of Systems Review of Symptoms General ROS: no weight loss or fever Psychological ROS: no depression or mood changes, no memory loss Ophthalmic ROS: no visual changes or eye irritation ENT ROS: no nasal congestion, hearing loss, dizziness Allergy and Immunology ROS: no allergic symptoms or urticaria Hematological and Lymphatic ROS: no swollen glands, unusual bleeding or bruising Endocrine ROS: no polyuria, polydipsia, weight changes, temperature intolerance Respiratory ROS: no cough, shortness of breath, or wheezing Cardiovascular ROS: no chest pain or dyspnea on exertion Gastrointestinal ROS: denies abdominal pain, bright red blood in stool. Musculoskeletal ROS: no myalgias or arthralgias Neurological ROS: no TIA or stroke symptoms Dermatological ROS: no new or changing skin lesions, rashes or pruritis Physical Exam Physical Exam General appearance: alert, cooperative, no distress, appears stated age Head: Normocephalic, without obvious abnormality, atraumatic Eyes: conjunctivae/corneas clear. PERRL, EOM's intact. Fundi benign Throat: Lips, mucosa, and tongue normal. Teeth and gums normal Neck: supple, symmetrical, trachea midline, no adenopathy, thyroid: not enlarged, symmetric, no tenderness/mass/nodules, no carotid bruit and no JVD Lungs: clear to auscultation bilaterally Heart: regular rate and rhythm, S1, S2 normal, no murmur, click, rub or gallop Abdomen: soft, non-tender. Bowel sounds normal. No masses, no organomegaly Extremities: extremities normal, atraumatic, no cyanosis or edema Pulses: 2+ and symmetric Skin: Skin color, texture, turgor normal. No rashes or lesions; left lower back / flank / superior buttock with large fluid collection medial to prior placed pain implant Neurologic: Grossly normal Last 24 Hour Vital Signs Date Time Temp Pulse Resp B/P (MAP) Pulse Ox O2 Delivery O2 Flow Rate FiO2 08/26/18 09:02 98.6 08/26/18 08:00 98.6 80 20 120/76 (91) 100 08/26/18 04:00 98.3 85 18 111/76 (88) 100 08/26/18 00:00 97.2 95 17 113/93 (100) 95 08/25/18 21:00 Room Air 08/25/18 20:00 97.7 87 17 129/72 (91) 100 08/25/18 16:00 98.7 84 18 118/75 (89) 99 Intake and Output 08/25/18 08/26/18 19:00 07:00 Intake Total 625 ml 1535.008 ml Balance 625 ml 1535.008 ml Intake Oral 400 ml 480 ml IV Total 225 ml 1055.008 ml # Voids 2 6 Laboratory Tests Test 08/26/18 05:41 White Blood Count 6.0 K/UL (4.8-10.8) Red Blood Count 4.06 M/UL (4.20-5.40) L Hemoglobin 12.5 G/DL (12.0-16.0) Hematocrit 37.2 % (37.0-47.0) Mean Corpuscular Volume 92 FL (80-99) Mean Corpuscular Hemoglobin 30.9 PG (27.0-31.0) Mean Corpuscular Hemoglobin Concent 33.7 G/DL (32.0-36.0) Red Cell Distribution Width 13.0 % (11.6-14.8) Platelet Count 244 K/UL (150-450) Mean Platelet Volume 5.4 FL (6.5-10.1) L Neutrophils (%) (Auto) 66.0 % (45.0-75.0) Lymphocytes (%) (Auto) 23.6 % (20.0-45.0) Monocytes (%) (Auto) 5.8 % (1.0-10.0) Eosinophils (%) (Auto) 3.9 % (0.0-3.0) H Basophils (%) (Auto) 0.6 % (0.0-2.0) Erythrocyte Sedimentation Rate 79 MM/HR (0-20) H Sodium Level 139 MMOL/L (136-145) Potassium Level 3.7 MMOL/L (3.5-5.1) Chloride Level 101 MMOL/L (98-107) Carbon Dioxide Level 27 MMOL/L (21-32) Anion Gap 11 mmol/L (5-15) Blood Urea Nitrogen 3 mg/dL (7-18) L Creatinine 0.6 MG/DL (0.55-1.30) Estimat Glomerular Filtration Rate > 60 mL/min (>60) Glucose Level 71 MG/DL (74-106) L Calcium Level 8.2 MG/DL (8.5-10.1) L Phosphorus Level 3.6 MG/DL (2.5-4.9) Magnesium Level 2.5 MG/DL (1.8-2.4) H Total Bilirubin 0.4 MG/DL (0.2-1.0) Aspartate Amino Transf (AST/SGOT) 62 U/L (15-37) H Alanine Aminotransferase (ALT/SGPT) 48 U/L (12-78) Alkaline Phosphatase 108 U/L (46-116) C-Reactive Protein, Quantitative 10.6 mg/dL (0.00-0.90) H Total Protein 7.0 G/DL (6.4-8.2) Albumin 2.9 G/DL (3.4-5.0) L Globulin 4.1 g/dL Albumin/Globulin Ratio 0.7 (1.0-2.7) L Amylase Level 280 U/L (25-115) H Lipase > 2000 U/L (73-393) H Height (Feet): 5 Height (Inches): 2.00 Weight (Pounds): 160 Medications Current Medications Medications (Trade) Dose Ordered Sig/Chloe Route PRN Reason Start Time Stop Time Status Last Admin Dose Admin Acetaminophen (Tylenol) 650 mg Q4H PRN ORAL fever 08/22/18 21:30 09/21/18 21:29 Al Hydroxide/Mg Hydroxide (Mylanta II) 30 ml Q6H PRN ORAL dyspepsia 08/22/18 21:30 09/21/18 21:29 Chlordiazepoxide (Librium) 25 mg Q6H PRN ORAL Agitation 08/22/18 21:30 08/29/18 21:29 08/26/18 10:27 Dextrose (Dextrose 50%) 25 ml Q30M PRN IV Hypoglycemia 08/22/18 21:30 09/21/18 21:29 Dextrose (Dextrose 50%) 50 ml Q30M PRN IV Hypoglycemia 08/22/18 21:30 09/21/18 21:29 Dextrose/ Electrolytes 1,000 ml @ 75 mls/hr [id number] IV 08/23/18 13:00 09/22/18 12:59 08/25/18 05:14 Folic Acid 1 mg/ Magnesium Sulfate 2000 mg/ Multivitamins 10 ml/Sodium Chloride 1,014.2 ml @ 124.876 mls/hr Q24H IV 08/23/18 21:00 09/22/18 20:59 08/25/18 21:09 Heparin Sodium (Porcine) (Heparin 5000 units/ml) 5,000 units EVERY 12 HOURS SUBQ 08/23/18 09:00 09/22/18 08:59 08/26/18 08:33 Lorazepam (Ativan 2mg/ml 1ml) 1 mg Q4H PRN IV For Anxiety 08/26/18 14:00 09/02/18 13:59 08/26/18 14:04 Lorazepam (Ativan 2mg/ml 1ml) 2 mg Q1H PRN IV seizures 08/22/18 21:30 08/29/18 21:29 08/24/18 05:48 Morphine Sulfate (Morphine Sulfate) 8 mg Q3H PRN IVP For Pain 08/24/18 12:00 08/30/18 11:59 08/26/18 11:26 Ondansetron HCl (Zofran) 4 mg Q3HR PRN IVP Nausea & Vomiting 08/23/18 06:15 09/22/18 06:14 08/23/18 22:22 Polyethylene Glycol (Miralax) 17 gm HSPRN PRN ORAL Constipation 08/22/18 21:30 09/21/18 21:29 Thiamine HCl 100 mg/Dextrose 56 ml @ 112 mls/hr Q24H IV 08/23/18 21:00 09/22/18 20:59 08/25/18 21:09 Zolpidem Tartrate (Ambien) 5 mg HSPRN PRN ORAL Insomnia 08/22/18 21:30 08/29/18 21:29 08/24/18 00:26 Assessment/Plan Problem List: (1) Abscess of lower back Assessment & Plan: 1. Distended small bowel loops with thickening and inflammatory changes of the bowel. Decreased caliber at the distal small bowel, findings may be a low-grade small bowel obstruction or an enteritis with ileus. Small to moderate free fluid. No free air or abscess. 2. Small amount of fluid extends around the pancreas, correlate with labs for possible pancreatitis. 3. Small bilateral pleural effusions. Bibasilar lung atelectasis/airspace disease. 4. 4.5 mm right lower lobe lung nodule. 5. Fatty prominent liver. 6. 4.2 x 5.9 x 4.1 cm fluid collection in the left buttock subcutaneous soft tissue with rim enhancement and central linear hyperdensity surrounded by heterogeneous fatty density. Uncertain etiology, possible, infection/abscess, hematoma or injection. Follow-up. Correlate with history. 37-year-old female with 4 x 6 x 4 cm fluid collection in the left lower back/ flank/superior buttock subcutaneous soft tissue with rim enhancement and central linear hyperdensity with surrounded by heterogeneous fatty density which could potentially be hematoma, abscess, fluid collection. Patient had prior subcutaneous pain management capsule placement earlier this year. States she had an infection afterwards and has been since dealing with this. Given above findings and clinical history recommend incision and drainage. Possible removal of foreign body if still present and not dissolved. Wound care until wound healed by secondary intention. Patient had with patient and her mother about the clinical findings and recommendations. Risk benefits and alternatives discussed in detail. Wound care potentials and long-term wound with care needs discussed and expressed prior to any procedures being performed. Patient and mother expressed understanding and have consented to proceed with surgery. Given patient's history and current condition do not recommend bedside procedure and should be done in a safe monitor environment in the operating room. ICD Codes: L02.212 - Cutaneous abscess of back [any part, except buttock] SNOMED: 950165760 (2) Infection of implant site ICD Codes: T85.79XA - Infection and inflammatory reaction due to other internal prosthetic devices, implants and grafts, initial encounter SNOMED: 211664737 Jon Dupree Aug 26, 2018 14:16
--- NOTE | 2018-08-26 14:22 | Pre-Procedure Note/Attestation ---
Pre-Procedure Note/Attestation Complete Prior to Procedure Planned Procedure: left Procedure Narrative: Incision and drainage of left lower back abscess with removal of foreign body Indications for Procedure Pre-Operative Diagnosis: left lower back abscess / foreign body Attestation I attest that I discussed the nature of the procedure; its benefits; risks and complications; and alternatives (and the risks and benefits of such alternatives ), prior to the procedure, with the patient (or the patient's legal territory account representative). I attest that, if there was a reasonable possibility of needing a blood transfusion, the patient (or the patient's legal territory account representative) was given the [facility] standardized written summary, pursuant to the [place] Blood Safety Act ([place] Health and Safety Code # 1645, as amended). I attest that I re-evaluated the patient just prior to the surgery and that there has been no change in the patient's H&P, except as documented below: Jon Dupree Aug 26, 2018 14:22
--- NOTE | 2018-08-26 17:36 | Internal Med Progress Note ---
Subjective Date of Service: Aug 26, 2018 Physician Name Sanjeev Flor Attending Physician Dion Alberto MD Current Medications Medications (Trade) Dose Ordered Sig/Chloe Route PRN Reason Start Time Stop Time Status Last Admin Dose Admin Acetaminophen (Tylenol) 650 mg Q4H PRN ORAL fever 08/22/18 21:30 09/21/18 21:29 Al Hydroxide/Mg Hydroxide (Mylanta II) 30 ml Q6H PRN ORAL dyspepsia 08/22/18 21:30 09/21/18 21:29 Chlordiazepoxide (Librium) 25 mg Q6H PRN ORAL Agitation 08/22/18 21:30 08/29/18 21:29 08/26/18 10:27 Dextrose (Dextrose 50%) 25 ml Q30M PRN IV Hypoglycemia 08/22/18 21:30 09/21/18 21:29 Dextrose (Dextrose 50%) 50 ml Q30M PRN IV Hypoglycemia 08/22/18 21:30 09/21/18 21:29 Dextrose/ Electrolytes 1,000 ml @ 75 mls/hr [id number] IV 08/23/18 13:00 09/22/18 12:59 08/25/18 05:14 Folic Acid 1 mg/ Magnesium Sulfate 2000 mg/ Multivitamins 10 ml/Sodium Chloride 1,014.2 ml @ 124.876 mls/hr Q24H IV 08/23/18 21:00 09/22/18 20:59 08/25/18 21:09 Heparin Sodium (Porcine) (Heparin 5000 units/ml) 5,000 units EVERY 12 HOURS SUBQ 08/23/18 09:00 09/22/18 08:59 08/26/18 08:33 Lorazepam (Ativan 2mg/ml 1ml) 1 mg Q4H PRN IV For Anxiety 08/26/18 14:00 09/02/18 13:59 08/26/18 14:04 Lorazepam (Ativan 2mg/ml 1ml) 2 mg Q1H PRN IV seizures 08/22/18 21:30 08/29/18 21:29 08/24/18 05:48 Morphine Sulfate (Morphine Sulfate) 8 mg Q3H PRN IVP For Pain 08/24/18 12:00 08/30/18 11:59 08/26/18 17:24 Ondansetron HCl (Zofran) 4 mg Q3HR PRN IVP Nausea & Vomiting 08/23/18 06:15 09/22/18 06:14 08/23/18 22:22 Polyethylene Glycol (Miralax) 17 gm HSPRN PRN ORAL Constipation 08/22/18 21:30 09/21/18 21:29 Thiamine HCl 100 mg/Dextrose 56 ml @ 112 mls/hr Q24H IV 08/23/18 21:00 09/22/18 20:59 08/25/18 21:09 Zolpidem Tartrate (Ambien) 5 mg HSPRN PRN ORAL Insomnia 08/22/18 21:30 08/29/18 21:29 08/24/18 00:26 Allergies: Uncoded Allergies: Lactose intolerance (Adverse Reaction, Mild, 08/25/18) Abdominal pain ROS Limited/Unobtainable: No Constitutional: Reports: no symptoms HEENT: Reports: no symptoms Cardiovascular: Reports: no symptoms Respiratory: Reports: no symptoms Gastrointestinal/Abdominal: Reports: no symptoms Genitourinary: Reports: no symptoms Neurologic/Psychiatric: Reports: no symptoms Subjective 37 YO F admitted with nausea, vomiting and epigastric pain. Now pancreatitis. Cover for Int Med-DR Alberto Objective Last Vital Signs Date Time Temp Pulse Resp B/P (MAP) Pulse Ox O2 Delivery O2 Flow Rate FiO2 08/26/18 12:00 97.8 84 18 124/87 (99) 97 08/26/18 09:00 Room Air Laboratory Tests Test 08/26/18 05:41 White Blood Count 6.0 K/UL (4.8-10.8) Red Blood Count 4.06 M/UL (4.20-5.40) L Hemoglobin 12.5 G/DL (12.0-16.0) Hematocrit 37.2 % (37.0-47.0) Mean Corpuscular Volume 92 FL (80-99) Mean Corpuscular Hemoglobin 30.9 PG (27.0-31.0) Mean Corpuscular Hemoglobin Concent 33.7 G/DL (32.0-36.0) Red Cell Distribution Width 13.0 % (11.6-14.8) Platelet Count 244 K/UL (150-450) Mean Platelet Volume 5.4 FL (6.5-10.1) L Neutrophils (%) (Auto) 66.0 % (45.0-75.0) Lymphocytes (%) (Auto) 23.6 % (20.0-45.0) Monocytes (%) (Auto) 5.8 % (1.0-10.0) Eosinophils (%) (Auto) 3.9 % (0.0-3.0) H Basophils (%) (Auto) 0.6 % (0.0-2.0) Erythrocyte Sedimentation Rate 79 MM/HR (0-20) H Sodium Level 139 MMOL/L (136-145) Potassium Level 3.7 MMOL/L (3.5-5.1) Chloride Level 101 MMOL/L (98-107) Carbon Dioxide Level 27 MMOL/L (21-32) Anion Gap 11 mmol/L (5-15) Blood Urea Nitrogen 3 mg/dL (7-18) L Creatinine 0.6 MG/DL (0.55-1.30) Estimat Glomerular Filtration Rate > 60 mL/min (>60) Glucose Level 71 MG/DL (74-106) L Calcium Level 8.2 MG/DL (8.5-10.1) L Phosphorus Level 3.6 MG/DL (2.5-4.9) Magnesium Level 2.5 MG/DL (1.8-2.4) H Total Bilirubin 0.4 MG/DL (0.2-1.0) Aspartate Amino Transf (AST/SGOT) 62 U/L (15-37) H Alanine Aminotransferase (ALT/SGPT) 48 U/L (12-78) Alkaline Phosphatase 108 U/L (46-116) C-Reactive Protein, Quantitative 10.6 mg/dL (0.00-0.90) H Total Protein 7.0 G/DL (6.4-8.2) Albumin 2.9 G/DL (3.4-5.0) L Globulin 4.1 g/dL Albumin/Globulin Ratio 0.7 (1.0-2.7) L Amylase Level 280 U/L (25-115) H Lipase > 2000 U/L (73-393) H Intake and Output 08/25/18 08/26/18 19:00 07:00 Intake Total 625 ml 1535.008 ml Balance 625 ml 1535.008 ml Intake Oral 400 ml 480 ml IV Total 225 ml 1055.008 ml # Voids 2 6 Objective PHYSICAL EXAMINATION: VITAL SIGNS: On admission, temperature 98.1, pulse of 85, respirations 18, blood pressure 150/113, repeat one is 138/96. GENERAL: The patient is awake, responsive, in no acute distress. HEAD AND NECK: Pupils are equal and reactive to light. Extraocular movements are intact. Neck was supple. No JVD. LUNGS: Good air entry. No wheezes or rales. HEART: S1, S2. Regular rhythm. No gallops. ABDOMEN: Soft, nondistended. Tender on the left side of abdomen. No rebound tenderness. EXTREMITIES: No cyanosis, clubbing, or edema. NEUROLOGIC: Cranial nerves II through XII are grossly intact. Motor is 5/5 in all extremities. Gait is intact. RECTAL: Refused and deferred. GENITOURINARY: Refused and deferred. PSYCHIATRIC: Mood and affect is intact. Assessment/Plan Assessment/Plan ASSESSMENT: 1. Severe abdominal pain, secondary to alcohol-induced pancreatitis. 2. History of alcoholism. 3. Hypokalemia. 4. Hypothyroidism. 5. History of skin cancer, status post resection. 6. Left lower back abscess PLAN: Admit the patient to the medical floor. advance to regular diet per GI. Follow up with Dr. Adams consultation from GI. continue on a banana bag and Librium, and monitor amylase and lipase. Code status, Full Code. DVT prophylaxis, SCD. await incsion and drainage abscess of left back-see surgery note. Sanjeev Flor MD Aug 26, 2018 17:36
[2018-08-26] MEDS ORDERED: Lidocaine HCl 2% Jelly 6ml Tube TOPIC PRN ×2 (19:15→19:30)
--- NOTE | 2018-08-26 19:30 | NUR ---
NURSE NOTES: Received report from JERRY Kendall. Received pt lying in bed, AOX4, pain level 4/10 to left posterior back. Informed pt Morphine pain medication not yet due. Pt verbalized understanding. IV R hand #22 patent and intact. Bed in lowest position and locked, side rails up x 2, call light within reach. Will continue to monitor.
[2018-08-26 20:00] VITALS: BP 117/56
[2018-08-26] MEDS: Thiamine HCl 100 MG in D5W 55 ML IV SCH (20:26)
[2018-08-26] MEDS: Folic Acid 1 MG, Magnesium Sulfate 2,000 MG, Multivitamin - 12 Injection 10 ML in NS w/... IV SCH (21:37)
[2018-08-27] VITALS (14 sets, daily range): BP systolic 107–145; BP diastolic 76–94
[2018-08-27] MEDS: LORazepam Inj 2mg/ml 1ml IV PRN (04:32)
--- NOTE | 2018-08-27 04:37 | NUR ---
NURSE NOTES: Pt wants to be disconnected from banana bag IV fluid at this time. Risk and benefits explained to pt. Pt still wishes to be disconnected.
[2018-08-27] MEDS: Morphine Sulfate 4mg/ml Inj (IV USE ONLY) IVP PRN (05:59)
--- NOTE | 2018-08-27 06:45 | NUR ---
NURSE NOTES: Asked pt if she wants to be re-connected back to banana bag IV fluid, pt refused to be re-connected. Will endorse to next nurse.
[2018-08-27 07:16] LABS: BASOPHILS % (AUTO) 1.1 % (0.0-2.0); EOSINOPHILS % (AUTO) 4.5 % (0.0-3.0); HEMATOCRIT 36.5 % (37.0-47.0); HEMOGLOBIN 12.4 G/DL (12.0-16.0); LYMPHOCYTES % (AUTO) 24.5 % (20.0-45.0); MEAN CORPUSCULAR VOLUME 91 FL (80-99); MONOCYTES % (AUTO) 7.8 % (1.0-10.0); PLATELET COUNT 306 K/UL (150-450); RED BLOOD COUNT 4.01 M/UL (4.20-5.40); RED CELL DISTRIBUTION WIDTH 12.7 % (11.6-14.8); WHITE BLOOD COUNT 4.7 K/UL (4.8-10.8)
--- NOTE | 2018-08-27 07:30 | NUR ---
HAND-OFF: Report given to JERRY Chavis. Pt in stable condition.
--- NOTE | 2018-08-27 07:30 | NUR ---
NURSE NOTES: Pt connected back to banana bag for hydration. Will endorse to next nurse.
--- NOTE | 2018-08-27 07:35 | NUR ---
NURSE NOTES: Patient lying in bed awake. No complain of pain or distress at this time. Skin intact and dry. IV dressing intact and dry. IV fluid on going as ordered. Bed lowest position. Call light within reach. Will continue to monitor.
[2018-08-27 07:41] LABS: INR 0.9 (0.9-1.1)
--- NOTE | 2018-08-27 07:56 | NUR ---
CASE MANAGEMENT:REVIEW 08/27/18 SI: PANCREATITIS. ETOH INTOXICATION 98.7 83 18 109/76 96% ON RA IS: IV BANANA BAG Q24 IV MORPHINE Q3HRS PRN IV THIAMINE Q24 IVF@ 75/HR HEPARIN SQ Q12 LIBRIUM PO Q6HRS PRN IV MORPHINE Q3HRS PRN IV ATIVAN Q4HRS PRN : MED/SURG STATUS 3 EAST PLAN: SCHEDULED FOR I&D OF LEFT LOWER BACK ABSCESS W/REMOVAL OF FOREIGN BODY
[2018-08-27] MEDS: chlordiazePOXIDE 25mg Cap ORAL PRN (08:19)
[2018-08-27 08:20] LABS: ALANINE AMINOTRANSFERASE 93 U/L (12-78); ALBUMIN 2.9 G/DL (3.4-5.0); ALBUMIN/GLOBULIN RATIO 0.7 (1.0-2.7); ALKALINE PHOSPHATASE 132 U/L (46-116); ANION GAP 11 mmol/L (5-15); ASPARTATE AMINO TRANSFERASE 117 U/L (15-37); BILIRUBIN,TOTAL 0.2 MG/DL (0.2-1.0); BLOOD UREA NITROGEN 5 mg/dL (7-18); CALCIUM 8.8 MG/DL (8.5-10.1); CARBON DIOXIDE 25 MMOL/L (21-32); CHLORIDE 102 MMOL/L (98-107); CREATININE 0.6 MG/DL (0.55-1.30); POTASSIUM 4.3 MMOL/L (3.5-5.1); SODIUM 138 MMOL/L (136-145)
[2018-08-27] MEDS: Heparin 5000 units/ml inj SUBQ SCH ×2 (09:00→21:37)
[2018-08-27] MEDS: D5 1/2NS w/KCl 20mEq 1,000 ML IV SCH ×2 (10:20→23:40)
--- NOTE | 2018-08-27 10:40 | NUR ---
NURSE NOTES: Patient off unit for procedure in stable condition. IV patent.
--- NOTE | 2018-08-27 10:41 | Anethesia Preoperative Eval ---
Anesthesia Pre-op PMH/ROS General Date of Evaluation: Aug 27, 2018 Anesthesiologist: Modesto ASA Score: ASA 2 Mallampati Score Class I : Soft palate, uvula, fauces, pillars visible Class II: Soft palate, uvula, fauces visible Class III: Soft palate, base of uvula visible Class IV: Only hard plate visible Mallampati Classification: Class II Surgeon: Leia Diagnosis: Back abscess Surgical Procedure: I&D back abscess Anesthesia History: none Family History: no anesthesia problems Allergies: Uncoded Allergies: Lactose intolerance (Adverse Reaction, Mild, 08/25/18) Abdominal pain Medications: see eMAR Patient NPO?: Yes NPO Date: Aug 27, 2018 NPO Time: 0000 Past Medical History Cardiovascular: Denies: HTN, CAD, [place], valve dz, arrhythmia, other Pulmonary: Denies: asthma, COPD, JOHN, other Gastrointestinal/Genitourinary: Denies: GERD, CRI, ESRD, other Neurologic/Psychiatric: Denies: dementia, CVA, depression/anxiety, TIA, other Endocrine: Reports: hypothyroidism; Denies: DM, steroids, other HEENT: Denies: cataract (L), cataract (R), glaucoma, [place] (L), [place] (R), other Hematology/Immune: Denies: anemia, DVT, bleeding disorder, other Musculoskeletal/Integumentary: Denies: OA, RA, DJD, DDD, edema, other PSxH Narrative: nerve stim implants Anesthesia Pre-op Phys. Exam Physician Exam Last Vital Signs Date Time Temp Pulse Resp B/P (MAP) Pulse Ox O2 Delivery O2 Flow Rate FiO2 08/27/18 09:00 Room Air 08/27/18 08:00 97.8 78 20 138/91 (107) 96 Constitutional: NAD Cardiovascular: RRR Respiratory: CTA Airway Exam Mallampati Score: Class II MO: full ROM: full Teeth: intact Anesthesia Pre-op A/P Labs Hematology Test 08/27/18 05:50 White Blood Count 4.7 K/UL (4.8-10.8) L Red Blood Count 4.01 M/UL (4.20-5.40) L Hemoglobin 12.4 G/DL (12.0-16.0) Hematocrit 36.5 % (37.0-47.0) L Mean Corpuscular Volume 91 FL (80-99) Mean Corpuscular Hemoglobin 30.8 PG (27.0-31.0) Mean Corpuscular Hemoglobin Concent 33.9 G/DL (32.0-36.0) Red Cell Distribution Width 12.7 % (11.6-14.8) Platelet Count 306 K/UL (150-450) Mean Platelet Volume 5.2 FL (6.5-10.1) L Neutrophils (%) (Auto) 62.0 % (45.0-75.0) Lymphocytes (%) (Auto) 24.5 % (20.0-45.0) Monocytes (%) (Auto) 7.8 % (1.0-10.0) Eosinophils (%) (Auto) 4.5 % (0.0-3.0) H Basophils (%) (Auto) 1.1 % (0.0-2.0) Coagulation Test 08/27/18 05:50 Prothrombin Time 9.5 SEC (9.30-11.50) Prothromb Time International Ratio 0.9 (0.9-1.1) Activated Partial Thromboplast Time 30 SEC (23-33) Chemistry Test 08/27/18 05:50 Sodium Level 138 MMOL/L (136-145) Potassium Level 4.3 MMOL/L (3.5-5.1) Chloride Level 102 MMOL/L (98-107) Carbon Dioxide Level 25 MMOL/L (21-32) Anion Gap 11 mmol/L (5-15) Blood Urea Nitrogen 5 mg/dL (7-18) L Creatinine 0.6 MG/DL (0.55-1.30) Estimat Glomerular Filtration Rate > 60 mL/min (>60) Glucose Level 78 MG/DL (74-106) Calcium Level 8.8 MG/DL (8.5-10.1) Total Bilirubin 0.2 MG/DL (0.2-1.0) Aspartate Amino Transf (AST/SGOT) 117 U/L (15-37) H Alanine Aminotransferase (ALT/SGPT) 93 U/L (12-78) H Alkaline Phosphatase 132 U/L (46-116) H Total Protein 7.2 G/DL (6.4-8.2) Albumin 2.9 G/DL (3.4-5.0) L Globulin 4.3 g/dL Albumin/Globulin Ratio 0.7 (1.0-2.7) L Amylase Level 280 U/L (25-115) H Lipase > 2000 U/L (73-393) H Risk Assessment & Plan Assessment: ASA II Plan: MAC Status Change Before Surgery: No Pre-Antibiotics Drug: Jemma Craft MD Aug 27, 2018 10:41
[2018-08-27] MEDS ORDERED: Lidocaine 1% MPF 10mg/ml 5ml ONE (10:42)
[2018-08-27] MEDS ORDERED: Propofol 200mg/20ml IV ONE ×3 (10:42→12:07)
[2018-08-27] MEDS ORDERED: fentaNYL 100 mcg/2 mL IV ONE (10:42)
[2018-08-27] MEDS ORDERED: LR 1000ml 1,000 ML IVLG SCH (10:44)
[2018-08-27] MEDS ORDERED: Midazolam 2mg/2ml Inj IVP PRN (10:45)
[2018-08-27] MEDS ORDERED: LORazepam Inj 2mg/ml 1ml IV PRN (10:45)
[2018-08-27] MEDS ORDERED: DiphenhydrAMINE 50mg/ml Inj IVP PRN (10:45)
[2018-08-27] MEDS ORDERED: fentaNYL 100 mcg/2 mL IV PRN (10:45)
[2018-08-27] MEDS ORDERED: Bupivacaine w/Epi 0.5% 30ml Vial INJ ONE (10:48)
[2018-08-27] MEDS ORDERED: Bacitracin 50000 Units Vial ONE (10:48)
[2018-08-27] MEDS ORDERED: Lidocaine 1% 10mg/ml/Epi 0.005mg/ml 30ml vial INJ ONE (10:48)
--- NOTE | 2018-08-27 11:11 | NUR ---
RD ASSESSMENT & RECOMMENDATIONS SEE CARE ACTIVITY FOR COMPLETE ASSESSMENT DAILY ESTIMATED NEEDS: Needs based on Pancreatitis, 55.7kg adj 25-35 kcals/kg 7978-3688 total kcals 1-1.5 g protein/kg 56-84 g total protein 25-30 mL/kg 4186-4048 total fluid mLs NUTRITION DIAGNOSIS: Decreased fat and sodium needs r/t pancreatitis and hypertension as evidenced by lipase >2000, elev LFT's, pt w/ elev BP on hypotensive meds. CURRENT DIET: NPO for I&D PO DIET RECOMMENDATIONS: LOW FAT/ LOW NA diet as tolerated ADDITIONAL RECOMMENDATIONS: 1) Obtain a standing weight as able 2) Rec diet change to Cardiac 3) Continue w/ banana bag + thiamine 4) CARMEN BID post I&D for wound healing
--- NOTE | 2018-08-27 11:34 | GI Progress Note ---
Assessment/Plan Problems: (1) Abscess of buttock ICD Codes: L02.31 - Cutaneous abscess of buttock SNOMED: 60620920 (2) Pancreatitis ICD Codes: K85.90 - Acute pancreatitis without necrosis or infection, unspecified SNOMED: 02390170 Qualifiers: Qualified Codes: K85.20 - Alcohol induced acute pancreatitis without necrosis or infection (3) Alcohol intoxication ICD Codes: F10.929 - Alcohol use, unspecified with intoxication, unspecified SNOMED: 52139594 Qualifiers: Qualified Codes: F10.929 - Alcohol use, unspecified with intoxication, unspecified (4) Alcohol abuse ICD Codes: F10.10 - Alcohol abuse, uncomplicated SNOMED: 34760308 Status: stable Status Narrative Discussed with Dr. Adams. Assessment/Plan Assessment - EtOH pancreatitis - Lipase levels remain high - Abdominal pelvis CT reviewed, noted with left buttocks abscess Recommendations - plan for surgery today - IVF - follow labs - avoid EtOH trend lipase abx The patient was seen and examined at bedside and all new and available data was reviewed in the patients chart. I agree with the above findings, impression and plan. (Patient seen earlier today. Signature stamp does not reflect patient encounter time.). - Joce Adams MD Subjective Subjective abdominal pain improved Objective Last 24 Hour Vital Signs Date Time Temp Pulse Resp B/P (MAP) Pulse Ox O2 Delivery O2 Flow Rate FiO2 08/27/18 09:00 Room Air 08/27/18 08:00 97.8 78 20 138/91 (107) 96 08/27/18 04:00 98.7 83 18 109/76 (87) 96 08/27/18 00:00 98.0 97 18 137/89 (105) 98 08/26/18 21:00 Room Air 08/26/18 20:00 98.0 92 18 117/56 (76) 96 08/26/18 17:54 97.8 08/26/18 12:00 97.8 84 18 124/87 (99) 97 Intake and Output 08/26/18 08/27/18 19:00 07:00 Intake Total 1330.132 ml Balance 1330.132 ml Intake Oral 400 ml IV Total 930.132 ml # Voids 2 5 Laboratory Tests Test 08/27/18 05:50 White Blood Count 4.7 K/UL (4.8-10.8) L Red Blood Count 4.01 M/UL (4.20-5.40) L Hemoglobin 12.4 G/DL (12.0-16.0) Hematocrit 36.5 % (37.0-47.0) L Mean Corpuscular Volume 91 FL (80-99) Mean Corpuscular Hemoglobin 30.8 PG (27.0-31.0) Mean Corpuscular Hemoglobin Concent 33.9 G/DL (32.0-36.0) Red Cell Distribution Width 12.7 % (11.6-14.8) Platelet Count 306 K/UL (150-450) Mean Platelet Volume 5.2 FL (6.5-10.1) L Neutrophils (%) (Auto) 62.0 % (45.0-75.0) Lymphocytes (%) (Auto) 24.5 % (20.0-45.0) Monocytes (%) (Auto) 7.8 % (1.0-10.0) Eosinophils (%) (Auto) 4.5 % (0.0-3.0) H Basophils (%) (Auto) 1.1 % (0.0-2.0) Prothrombin Time 9.5 SEC (9.30-11.50) Prothromb Time International Ratio 0.9 (0.9-1.1) Activated Partial Thromboplast Time 30 SEC (23-33) Sodium Level 138 MMOL/L (136-145) Potassium Level 4.3 MMOL/L (3.5-5.1) Chloride Level 102 MMOL/L (98-107) Carbon Dioxide Level 25 MMOL/L (21-32) Anion Gap 11 mmol/L (5-15) Blood Urea Nitrogen 5 mg/dL (7-18) L Creatinine 0.6 MG/DL (0.55-1.30) Estimat Glomerular Filtration Rate > 60 mL/min (>60) Glucose Level 78 MG/DL (74-106) Calcium Level 8.8 MG/DL (8.5-10.1) Total Bilirubin 0.2 MG/DL (0.2-1.0) Aspartate Amino Transf (AST/SGOT) 117 U/L (15-37) H Alanine Aminotransferase (ALT/SGPT) 93 U/L (12-78) H Alkaline Phosphatase 132 U/L (46-116) H Total Protein 7.2 G/DL (6.4-8.2) Albumin 2.9 G/DL (3.4-5.0) L Globulin 4.3 g/dL Albumin/Globulin Ratio 0.7 (1.0-2.7) L Amylase Level 280 U/L (25-115) H Lipase > 2000 U/L (73-393) H Height (Feet): 5 Height (Inches): 2.00 Weight (Pounds): 160 General Appearance: WD/WN, no apparent distress, alert Cardiovascular: normal rate Respiratory/Chest: normal breath sounds, no respiratory distress Abdominal Exam: normal bowel sounds, non tender, soft Extremities: normal range of motion, non-tender Maria E Meng NP Aug 27, 2018 11:33
--- NOTE | 2018-08-27 12:34 | Immediate Post-Op Evaluation ---
Immediate Post-Op Evalulation Immediate Post-Op Evalulation Procedure: I&D left back mass Date of Evaluation: Aug 27, 2018 Time of Evaluation: 12:35 IV Fluids: 500 Blood Products: 0 Estimated Blood Loss: min Urinary Output: 0 Blood Pressure Systolic: 128 Blood Pressure Diastolic: 88 Pulse Rate: 89 Respiratory Rate: 16 O2 Sat by Pulse Oximetry: 98 Temperature (Fahrenheit): 97 Pain Score (1-10): 0 Nausea: No Vomiting: No Complications 0 Patient Status: awake, reacts, patent, none Hydration Status: adequate Drug: N/A Jemma Catalan MD Aug 27, 2018 12:34
[2018-08-27] MEDS: Hydromorphone 0.5mg/0.5ml inj IVP PRN ×2 (12:51→13:06)
--- NOTE | 2018-08-27 13:27 | Brief Operative Note ---
Immediate Post Operative Note Operative Note Pre-op Diagnosis: left lower back abscess / foreign body Procedure: excision of left lower back mass / foreign body complex primary closure with mobilization of surrounding subcutaneous tissue Post-op Diagnosis: same as pre-op Surgeon: stacy Anesthesiologist: yo Anesthesia: moderate sedation Specimen: yes Complications: none Condition: stable Fluids: see records Estimated Blood Loss: minimal Drains: VENKAT Implant(s) used?: No Jon Dupree Aug 27, 2018 13:27
[2018-08-27] MEDS ORDERED: Hydromorphone 0.5mg/0.5ml inj IVP PRN (13:30)
--- NOTE | 2018-08-27 13:35 | NUR ---
NURSE NOTES: Noni EDWARDS brought patient by bed in stable condition. No complain of pain or distress at this time. Surgical dressing intact and dry. VENKAT drainage patent. IV dressing intact and dry. Bed lowest position. Call light within reach. Will continue to monitor.
--- NOTE | 2018-08-27 14:22 | NUR ---
*-* INSURANCE *-* UPDATED CLINICALS, REVIEW HAVE BEEN FAXED TO: [facility] FAX ALL CLINICALS TO [phone]
[2018-08-27] MEDS: ceFAZolin 2gm/50ml Premix 50 ML IV SCH (16:24)
--- NOTE | 2018-08-27 18:31 | Internal Med Progress Note ---
Subjective Date of Service: Aug 27, 2018 Physician Name Flor,Sanjeev Attending Physician Dion Alberto MD Current Medications Medications (Trade) Dose Ordered Sig/Chloe Route PRN Reason Start Time Stop Time Status Last Admin Dose Admin Acetaminophen (Tylenol) 650 mg Q4H PRN ORAL fever 08/22/18 21:30 09/21/18 21:29 Al Hydroxide/Mg Hydroxide (Mylanta II) 30 ml Q6H PRN ORAL dyspepsia 08/22/18 21:30 09/21/18 21:29 Cefazolin Sodium 50 ml @ 100 mls/hr Q8H IV 08/27/18 17:00 09/03/18 16:59 08/27/18 16:24 Chlordiazepoxide (Librium) 25 mg Q6H PRN ORAL Agitation 08/22/18 21:30 08/29/18 21:29 08/27/18 08:19 Dextrose (Dextrose 50%) 25 ml Q30M PRN IV Hypoglycemia 08/22/18 21:30 09/21/18 21:29 Dextrose (Dextrose 50%) 50 ml Q30M PRN IV Hypoglycemia 08/22/18 21:30 09/21/18 21:29 Dextrose/ Electrolytes 1,000 ml @ 75 mls/hr [id number] IV 08/23/18 13:00 09/22/18 12:59 08/25/18 05:14 Folic Acid 1 mg/ Magnesium Sulfate 2000 mg/ Multivitamins 10 ml/Sodium Chloride 1,014.2 ml @ 124.876 mls/hr Q24H IV 08/23/18 21:00 09/22/18 20:59 08/26/18 21:37 Heparin Sodium (Porcine) (Heparin 5000 units/ml) 5,000 units EVERY 12 HOURS SUBQ 08/23/18 09:00 09/22/18 08:59 08/26/18 08:33 Hydromorphone HCl (Dilaudid) 0.5 mg Q3H PRN IVP Pain Score 1-3 08/27/18 13:30 09/03/18 13:29 Hydromorphone HCl (Dilaudid) 1 mg Q3H PRN IVP pain score 4-6 08/27/18 13:30 09/03/18 13:29 Hydromorphone HCl (Dilaudid) 2 mg Q3H PRN IVP pain score 7-10 08/27/18 13:30 09/03/18 13:29 08/27/18 16:25 Lidocaine HCl (Xylocaine Jelly 2%) 1 applic Q4H PRN TOPIC For Pain 08/26/18 19:30 09/25/18 19:29 Lorazepam (Ativan 2mg/ml 1ml) 1 mg Q4H PRN IV For Anxiety 08/26/18 14:00 09/02/18 13:59 08/27/18 04:32 Lorazepam (Ativan 2mg/ml 1ml) 2 mg Q1H PRN IV seizures 08/22/18 21:30 08/29/18 21:29 08/24/18 05:48 Ondansetron HCl (Zofran) 4 mg Q3HR PRN IVP Nausea & Vomiting 08/23/18 06:15 09/22/18 06:14 08/23/18 22:22 Polyethylene Glycol (Miralax) 17 gm HSPRN PRN ORAL Constipation 08/22/18 21:30 09/21/18 21:29 Thiamine HCl 100 mg/Dextrose 56 ml @ 112 mls/hr Q24H IV 08/23/18 21:00 09/22/18 20:59 08/26/18 20:26 Zolpidem Tartrate (Ambien) 5 mg HSPRN PRN ORAL Insomnia 08/22/18 21:30 08/29/18 21:29 08/24/18 00:26 Allergies: Uncoded Allergies: Lactose intolerance (Adverse Reaction, Mild, 08/25/18) Abdominal pain ROS Limited/Unobtainable: No Constitutional: Reports: no symptoms HEENT: Reports: no symptoms Cardiovascular: Reports: no symptoms Respiratory: Reports: no symptoms Gastrointestinal/Abdominal: Reports: no symptoms Genitourinary: Reports: no symptoms Neurologic/Psychiatric: Reports: no symptoms Subjective 37 YO F admitted with nausea, vomiting and epigastric pain. Now pancreatitis. Cover for Int Vladimir-DR Alberto. S/P I&D abscess 08/27/18 Objective Last Vital Signs Date Time Temp Pulse Resp B/P (MAP) Pulse Ox O2 Delivery O2 Flow Rate FiO2 08/27/18 16:00 98.1 85 20 131/88 (102) 99 08/27/18 13:20 Nasal Cannula 3 Laboratory Tests Test 08/27/18 05:50 White Blood Count 4.7 K/UL (4.8-10.8) L Red Blood Count 4.01 M/UL (4.20-5.40) L Hemoglobin 12.4 G/DL (12.0-16.0) Hematocrit 36.5 % (37.0-47.0) L Mean Corpuscular Volume 91 FL (80-99) Mean Corpuscular Hemoglobin 30.8 PG (27.0-31.0) Mean Corpuscular Hemoglobin Concent 33.9 G/DL (32.0-36.0) Red Cell Distribution Width 12.7 % (11.6-14.8) Platelet Count 306 K/UL (150-450) Mean Platelet Volume 5.2 FL (6.5-10.1) L Neutrophils (%) (Auto) 62.0 % (45.0-75.0) Lymphocytes (%) (Auto) 24.5 % (20.0-45.0) Monocytes (%) (Auto) 7.8 % (1.0-10.0) Eosinophils (%) (Auto) 4.5 % (0.0-3.0) H Basophils (%) (Auto) 1.1 % (0.0-2.0) Prothrombin Time 9.5 SEC (9.30-11.50) Prothromb Time International Ratio 0.9 (0.9-1.1) Activated Partial Thromboplast Time 30 SEC (23-33) Sodium Level 138 MMOL/L (136-145) Potassium Level 4.3 MMOL/L (3.5-5.1) Chloride Level 102 MMOL/L (98-107) Carbon Dioxide Level 25 MMOL/L (21-32) Anion Gap 11 mmol/L (5-15) Blood Urea Nitrogen 5 mg/dL (7-18) L Creatinine 0.6 MG/DL (0.55-1.30) Estimat Glomerular Filtration Rate > 60 mL/min (>60) Glucose Level 78 MG/DL (74-106) Calcium Level 8.8 MG/DL (8.5-10.1) Total Bilirubin 0.2 MG/DL (0.2-1.0) Aspartate Amino Transf (AST/SGOT) 117 U/L (15-37) H Alanine Aminotransferase (ALT/SGPT) 93 U/L (12-78) H Alkaline Phosphatase 132 U/L (46-116) H Total Protein 7.2 G/DL (6.4-8.2) Albumin 2.9 G/DL (3.4-5.0) L Globulin 4.3 g/dL Albumin/Globulin Ratio 0.7 (1.0-2.7) L Amylase Level 280 U/L (25-115) H Lipase > 2000 U/L (73-393) H Intake and Output 08/26/18 08/27/18 19:00 07:00 Intake Total 1330.132 ml Balance 1330.132 ml Intake Oral 400 ml IV Total 930.132 ml # Voids 2 5 Objective PHYSICAL EXAMINATION: VITAL SIGNS: On admission, temperature 98.1, pulse of 85, respirations 18, blood pressure 150/113, repeat one is 138/96. GENERAL: The patient is awake, responsive, in no acute distress. HEAD AND NECK: Pupils are equal and reactive to light. Extraocular movements are intact. Neck was supple. No JVD. LUNGS: Good air entry. No wheezes or rales. HEART: S1, S2. Regular rhythm. No gallops. ABDOMEN: Soft, nondistended. Tender on the left side of abdomen. No rebound tenderness. EXTREMITIES: No cyanosis, clubbing, or edema. NEUROLOGIC: Cranial nerves II through XII are grossly intact. Motor is 5/5 in all extremities. Gait is intact. RECTAL: Refused and deferred. GENITOURINARY: Refused and deferred. PSYCHIATRIC: Mood and affect is intact. Assessment/Plan Assessment/Plan ASSESSMENT: 1. Severe abdominal pain, secondary to alcohol-induced pancreatitis. 2. History of alcoholism. 3. Hypokalemia. 4. Hypothyroidism. 5. History of skin cancer, status post resection. 6. Left lower back abscess PLAN: Admit the patient to the medical floor. advance to regular diet per GI. Follow up with Dr. Adams consultation from GI. continue on a banana bag and Librium, and monitor amylase and lipase. Code status, Full Code. DVT prophylaxis, SCD. S/P incsion and drainage abscess of left back 08/27/18-see surgery note. Sanjeev Flor MD Aug 27, 2018 18:31
--- NOTE | 2018-08-27 19:15 | NUR ---
HAND-OFF: Report given to Constance EDWARDS. Patient in stable condition.
--- NOTE | 2018-08-27 19:30 | NUR ---
NURSE NOTES: Report received from Partha EDWARDS. Pt is resting in bed in stable condition. Pt is awake, alert, and oriented x4. Pt is on room air and breathing is even and unlabored. No acute distress noted. IV site has been discontinued per dayshift RN d/t leaking. Will attempt to replace BHARATI. Pt independently ambulatory with steady gait. Surgical site and dressing noted to be dry and intact. VENKAT drain is intact and draining serosanguineous fluid. Bed placed in lowest position with brake engaged, side rails up x2. Call light and side table placed within reach. Will continue to monitor.
[2018-08-27] MEDS: Thiamine HCl 100 MG in D5W 55 ML IV SCH (21:32)
[2018-08-27] MEDS: Folic Acid 1 MG, Magnesium Sulfate 2,000 MG, Multivitamin - 12 Injection 10 ML in NS w/... IV SCH (21:33)
--- NOTE | 2018-08-27 22:30 | Operative Note - Dictated ---
DATE OF OPERATION: 08/27/2018 PREOPERATIVE DIAGNOSIS: Left lower back abscess versus foreign body versus mass. POSTOPERATIVE DIAGNOSIS: Left lower back foreign body/mass. OPERATION PERFORMED: 1. Excision of left lower back mass/foreign body. 2. Complex primary closure with mobilization of surrounding subcutaneous tissue flap for closure and drain placement. ATTENDING SURGEON: Jon Dupree M.D. CHEF KITCHEN MANAGER: None. ANESTHESIOLOGIST: Dr. Modesto Samuel. ANESTHESIA: Moderate sedation. ESTIMATED BLOOD LOSS: 10 mL. IV FLUIDS: Please see anesthesia records. COMPLICATIONS: None. DRAINS: A James-Richey drain in the left after complex closure for drainage. ANTIBIOTICS: A 2 g Ancef IV. IMPLANTS: None. SPECIMENS: Left lower extremity mass. INDICATIONS FOR PROCEDURE: This is a 37-year-old female with history of ETOH abuse, who has had a prior management capsule placed in the left lower back subcutaneous tissue for control of her problem. She had initial one placed multiple months ago and required a second one being placed in June of this year. She states that after the second was placed, she began what she believes she may had an infection or abscess. She had been seen as an outpatient by another physician and was told it would get better on its own. She had tried conservative management, but it did not improve. She is currently admitted for pancreatitis and back pain. During examination, CT scan identified an abnormal mass in the left lower back with potential of infection. Given these, Surgery was called to evaluate at which time the patient was seen and the abnormal tender mass was located in the left lower back. Care was discussed with the patient and recommendation was made for removal and potential drainage and exploration. Risks, benefits, and alternatives were discussed with the patient and her mother over the phone in detail at which time consent was obtained. OPERATIVE NOTE: The patient was taken to the operating room and placed on the operating room table in the right lateral decubitus position. Preoperative time-out was taken in identifying the patient, procedure, operative staff, and surgical staff. SCDs were placed. Moderate sedation was provided by the anesthesiologist. When the patient was comfortable, the left lower back was prepped and draped in standard surgical fashion. The palpable mass was identified as well as the prior incision site for the subcutaneous implant. A local anesthetic was infiltrated in the proposed skin incision, which was planned for the prior incision site and more medially as necessary. A #10 scalpel was used and the prior incision site was excised down to the subcutaneous tissue. The incision was carried down medially approximately 4 cm. Once this was completed, subcutaneous tissue was identified. In the subcutaneous tissue, a large excise mass was palpable. Excised mass was circumferentially dissected out using electrocautery. Hemostasis was obtained with electrocautery and 3-0 Vicryl ties as necessary. Identifying the apex of the soft tissue, tumor/mass was identified to be in the medial inferior aspect of an X-shaped hard tissue collection without any fluctuance or fluid. The medial inferior aspect had the branching vessels, which were feeding the mass and were attached to the fascia inferiorly and posteriorly as well as identifiable muscles. Once the mass completely excised, it was placed on the back table for evaluation at the end of the procedure. The wound bed was irrigated and hemostasis was obtained with electrocautery and 3-0 silk ties. Once this was completed, the area of defect was identified to be fairly large given the size of the tumor that was excised. The subcutaneous tissue was mobilized inferiorly, superiorly, medially, and laterally for a complex flap closure in a multiple layer fashion with 3-0 Vicryl ties. Given the complexity, a 10-Azeri drain was placed and exited in the lateral aspect for drainage. Prior to this being complete, the fascia was reapproximated and the fascia just above the muscle of the lower back was reapproximated using 2-0 Vicryl ties. Once complex closure was satisfactory without any compromise, the skin incision was reapproximated in a 2-layer fashion, reapproximated using 3-0 Vicryl sutures followed by 3-0 Monocryl running subcuticular suture. Wound was cleansed. Drain was placed to bulb suction and drain was stitched in place using a 3-0 nylon suture. Steri-Strips, benzoin, dressings were applied. The patient tolerated the procedure well and was taken to postanesthesia care unit in stable condition. Upon the patient exiting the operating room, the mass was taken and palpated and noted to be very hard without any fluctuance. The mass was incised and a core center of a fully fibrinous mass was identified to be the subcutaneous implanted capsule with surrounding purulent fluid/infection or what could be identified as an infection. The infection was well walled off by this large thick fibrinous dense mass. The entirety of the specimen was sent to pathology for review. Jon Dupree M.D. DR: MORIS JOB#: [id number] CC:
[2018-08-28] VITALS: BP 125/81
[2018-08-28] MEDS: ceFAZolin 2gm/50ml Premix 50 ML IV SCH ×3 (01:47→17:23)
[2018-08-28] MEDS: LORazepam Inj 2mg/ml 1ml IV PRN ×3 (01:47→11:59)
[2018-08-28 04:00] VITALS: BP 107/69
--- NOTE | 2018-08-28 07:00 | NUR ---
NURSE NOTES: 20cc sanguinous fluid out of VENKAT drain.
[2018-08-28 07:18] LABS: EOSINOPHILS % (AUTO) 3.8 % (0.0-3.0); HEMATOCRIT 35.8 % (37.0-47.0); HEMOGLOBIN 12.3 G/DL (12.0-16.0); LYMPHOCYTES % (AUTO) 34.1 % (20.0-45.0); MEAN CORPUSCULAR VOLUME 92 FL (80-99); MONOCYTES % (AUTO) 7.9 % (1.0-10.0); NEUTROPHILS % (AUTO) 53.2 % (45.0-75.0); PLATELET COUNT 344 K/UL (150-450); RED BLOOD COUNT 3.88 M/UL (4.20-5.40); RED CELL DISTRIBUTION WIDTH 12.7 % (11.6-14.8)
--- NOTE | 2018-08-28 07:42 | NUR ---
HAND-OFF: Report given to Pooja EDWARDS. Pt is resting in bed in stable condition. No acute distress noted. Endorsed plan of care.
--- NOTE | 2018-08-28 07:43 | NUR ---
CASE MANAGEMENT:REVIEW 08/28/18 SI: POD #1 PANCREATITIS. ETOH INTOXICATION S/P EXCISION OF LT LOWER BACK MASS W/VENKAT DRAIN 98.2 72 18 107/69 99% ON RA IS: IV ANCEF Q8HRS IV DILAUDID Q3HRS PRN IV BANANA BAG Q24 IV THIAMINE Q24 IVF@75/HR LIBRIUM PO Q6HRS PRN : MED/SURG STATUS 3 EAST PLAN: MONITOR VENKAT DRAIN OUTPUT
[2018-08-28 07:51] LABS: ANION GAP 9 mmol/L (5-15); BLOOD UREA NITROGEN 4 mg/dL (7-18); CALCIUM 8.6 MG/DL (8.5-10.1); CARBON DIOXIDE 27 MMOL/L (21-32); CHLORIDE 101 MMOL/L (98-107); CREATININE 0.6 MG/DL (0.55-1.30); POTASSIUM 4.5 MMOL/L (3.5-5.1); SODIUM 137 MMOL/L (136-145)
[2018-08-28 08:00] VITALS: BP 133/96
--- NOTE | 2018-08-28 08:00 | NUR ---
NURSE NOTES: Alert, oriented x4, complains of abdominal and back pain 01/11. Dilaudid 2 mg IV will be given at 1000 as scheduled. IV line patent, no signs of nausea or diarrhea.
[2018-08-28] MEDS: Heparin 5000 units/ml inj SUBQ SCH ×2 (09:00→21:50)
[2018-08-28] MEDS: chlordiazePOXIDE 25mg Cap ORAL PRN ×3 (09:10→21:47)
--- NOTE | 2018-08-28 11:19 | GI Progress Note ---
Assessment/Plan Problems: (1) Abscess of buttock ICD Codes: L02.31 - Cutaneous abscess of buttock SNOMED: 88267682 (2) Pancreatitis ICD Codes: K85.90 - Acute pancreatitis without necrosis or infection, unspecified SNOMED: 22590645 Qualifiers: Qualified Codes: K85.20 - Alcohol induced acute pancreatitis without necrosis or infection (3) Alcohol intoxication ICD Codes: F10.929 - Alcohol use, unspecified with intoxication, unspecified SNOMED: 87672390 Qualifiers: Qualified Codes: F10.929 - Alcohol use, unspecified with intoxication, unspecified (4) Alcohol abuse ICD Codes: F10.10 - Alcohol abuse, uncomplicated SNOMED: 10930735 Status: progressing Status Narrative Discussed with Dr. Adams Assessment/Plan Assessment - EtOH pancreatitis - Lipase levels remain high - Abdominal pelvis CT reviewed, noted with left buttocks abscess OPERATION PERFORMED: 1. Excision of left lower back mass/foreign body. 2. Complex primary closure with mobilization of surrounding subcutaneous tissue flap for closure and drain placement. Recommendations Pain management Antibiotics Advance diet Avoid alcohol Trend lipase dc planning The patient was seen and examined at bedside and all new and available data was reviewed in the patients chart. I agree with the above findings, impression and plan. (Patient seen earlier today. Signature stamp does not reflect patient encounter time.). - Joce Adams MD Subjective Subjective abdominal pain improved. Pain better tolerated Ordering outside food Objective Last 24 Hour Vital Signs Date Time Temp Pulse Resp B/P (MAP) Pulse Ox O2 Delivery O2 Flow Rate FiO2 08/28/18 10:31 98.3 08/28/18 09:00 Room Air 08/28/18 08:00 98.3 88 18 133/96 (108) 94 08/28/18 04:00 98.2 72 18 107/69 (82) 99 08/28/18 00:00 98.6 79 18 125/81 (96) 98 08/27/18 21:00 Room Air 08/27/18 20:00 98.4 84 17 122/79 (93) 98 08/27/18 16:00 98.1 85 20 131/88 (102) 99 08/27/18 14:40 97.8 77 20 128/89 (102) 98 08/27/18 14:10 97.8 79 20 128/88 (101) 98 08/27/18 13:40 97.7 72 20 142/94 (110) 100 08/27/18 13:25 98.0 08/27/18 13:20 98.0 76 21 134/84 100 Nasal Cannula 3 08/27/18 13:06 78 21 145/88 100 Nasal Cannula 3 08/27/18 12:51 82 20 134/77 99 Nasal Cannula 3 08/27/18 12:40 86 17 128/88 98 Nasal Cannula 3 08/27/18 12:35 88 18 107/79 98 Nasal Cannula 3 08/27/18 12:34 89 16 98 08/27/18 12:30 97.0 89 16 128/88 98 Nasal Cannula 3 Intake and Output 08/27/18 08/28/18 19:00 07:00 Intake Total 1424.876 ml 1200 ml Output Total 40 ml 20 ml Balance 1384.876 ml 1180 ml Intake Oral 400 ml 1200 ml IV Total 1024.876 ml Drainage Total 20 ml 20 ml Estimated Blood Loss 20 ml # Voids 3 4 Laboratory Tests Test 08/28/18 05:53 White Blood Count 5.0 K/UL (4.8-10.8) Red Blood Count 3.88 M/UL (4.20-5.40) L Hemoglobin 12.3 G/DL (12.0-16.0) Hematocrit 35.8 % (37.0-47.0) L Mean Corpuscular Volume 92 FL (80-99) Mean Corpuscular Hemoglobin 31.6 PG (27.0-31.0) H Mean Corpuscular Hemoglobin Concent 34.3 G/DL (32.0-36.0) Red Cell Distribution Width 12.7 % (11.6-14.8) Platelet Count 344 K/UL (150-450) Mean Platelet Volume 4.9 FL (6.5-10.1) L Neutrophils (%) (Auto) 53.2 % (45.0-75.0) Lymphocytes (%) (Auto) 34.1 % (20.0-45.0) Monocytes (%) (Auto) 7.9 % (1.0-10.0) Eosinophils (%) (Auto) 3.8 % (0.0-3.0) H Basophils (%) (Auto) 1.0 % (0.0-2.0) Sodium Level 137 MMOL/L (136-145) Potassium Level 4.5 MMOL/L (3.5-5.1) Chloride Level 101 MMOL/L (98-107) Carbon Dioxide Level 27 MMOL/L (21-32) Anion Gap 9 mmol/L (5-15) Blood Urea Nitrogen 4 mg/dL (7-18) L Creatinine 0.6 MG/DL (0.55-1.30) Estimat Glomerular Filtration Rate > 60 mL/min (>60) Glucose Level 75 MG/DL (74-106) Calcium Level 8.6 MG/DL (8.5-10.1) Lipase > 2000 U/L (73-393) H Microbiology Date/Time Source Procedure Growth Status 08/27/18 12:36 Back Gram Stain Pending Resulted 08/27/18 12:36 Back Aerobic Culture - Preliminary Resulted Height (Feet): 5 Height (Inches): 2.00 Weight (Pounds): 159 General Appearance: WD/WN, no apparent distress, alert Cardiovascular: normal rate Respiratory/Chest: normal breath sounds, no respiratory distress Abdominal Exam: normal bowel sounds, non tender, soft, incision site Extremities: normal range of motion, non-tender Maria E Meng NP Aug 28, 2018 11:19
--- NOTE | 2018-08-28 11:38 | NUR ---
*-* INSURANCE *-* UPDATED CLINICALS, REVIEW HAVE BEEN FAXED TO: [facility] FAX ALL CLINICALS TO [phone]
[2018-08-28 12:00] VITALS: BP 139/102
--- NOTE | 2018-08-28 12:33 | Internal Med Progress Note ---
Subjective Date of Service: Aug 28, 2018 Physician Name Flor,Sanjeev Attending Physician Dion Alberto MD Current Medications Medications (Trade) Dose Ordered Sig/Chloe Route PRN Reason Start Time Stop Time Status Last Admin Dose Admin Acetaminophen (Tylenol) 650 mg Q4H PRN ORAL fever 08/22/18 21:30 09/21/18 21:29 Al Hydroxide/Mg Hydroxide (Mylanta II) 30 ml Q6H PRN ORAL dyspepsia 08/22/18 21:30 09/21/18 21:29 Cefazolin Sodium 50 ml @ 100 mls/hr Q8H IV 08/27/18 17:00 09/03/18 16:59 08/28/18 09:11 Chlordiazepoxide (Librium) 25 mg Q6H PRN ORAL Agitation 08/22/18 21:30 08/29/18 21:29 08/28/18 09:10 Dextrose (Dextrose 50%) 25 ml Q30M PRN IV Hypoglycemia 08/22/18 21:30 09/21/18 21:29 Dextrose (Dextrose 50%) 50 ml Q30M PRN IV Hypoglycemia 08/22/18 21:30 09/21/18 21:29 Dextrose/ Electrolytes 1,000 ml @ 75 mls/hr [id number] IV 08/23/18 13:00 09/22/18 12:59 08/25/18 05:14 Folic Acid 1 mg/ Magnesium Sulfate 2000 mg/ Multivitamins 10 ml/Sodium Chloride 1,014.2 ml @ 124.876 mls/hr Q24H IV 08/23/18 21:00 09/22/18 20:59 08/27/18 21:33 Heparin Sodium (Porcine) (Heparin 5000 units/ml) 5,000 units EVERY 12 HOURS SUBQ 08/23/18 09:00 09/22/18 08:59 08/27/18 21:37 Hydromorphone HCl (Dilaudid) 0.5 mg Q3H PRN IVP Pain Score 1-3 08/27/18 13:30 09/03/18 13:29 Hydromorphone HCl (Dilaudid) 1 mg Q3H PRN IVP pain score 4-6 08/27/18 13:30 09/03/18 13:29 Hydromorphone HCl (Dilaudid) 2 mg Q3H PRN IVP pain score 7-10 08/27/18 13:30 09/03/18 13:29 08/28/18 10:01 Lidocaine HCl (Xylocaine Jelly 2%) 1 applic Q4H PRN TOPIC For Pain 08/26/18 19:30 09/25/18 19:29 Lorazepam (Ativan 2mg/ml 1ml) 1 mg Q4H PRN IV For Anxiety 08/28/18 01:45 09/04/18 01:44 08/28/18 11:59 Lorazepam (Ativan 2mg/ml 1ml) 2 mg Q1H PRN IV seizures 08/22/18 21:30 08/29/18 21:29 08/24/18 05:48 Ondansetron HCl (Zofran) 4 mg Q3HR PRN IVP Nausea & Vomiting 08/23/18 06:15 09/22/18 06:14 08/27/18 23:50 Polyethylene Glycol (Miralax) 17 gm HSPRN PRN ORAL Constipation 08/22/18 21:30 09/21/18 21:29 Thiamine HCl 100 mg/Dextrose 56 ml @ 112 mls/hr Q24H IV 08/23/18 21:00 09/22/18 20:59 08/27/18 21:32 Zolpidem Tartrate (Ambien) 5 mg HSPRN PRN ORAL Insomnia 08/22/18 21:30 08/29/18 21:29 08/24/18 00:26 Allergies: Uncoded Allergies: Lactose intolerance (Adverse Reaction, Mild, 08/25/18) Abdominal pain ROS Limited/Unobtainable: No Constitutional: Reports: no symptoms HEENT: Reports: no symptoms Cardiovascular: Reports: no symptoms Respiratory: Reports: no symptoms Gastrointestinal/Abdominal: Reports: no symptoms Genitourinary: Reports: no symptoms Neurologic/Psychiatric: Reports: no symptoms Subjective 37 YO F admitted with nausea, vomiting and epigastric pain. Now pancreatitis. Cover for Int Med-DR Alberto. S/P excision mass left lower back 08/27/18 Objective Last Vital Signs Date Time Temp Pulse Resp B/P (MAP) Pulse Ox O2 Delivery O2 Flow Rate FiO2 08/28/18 10:31 98.3 08/28/18 09:00 Room Air 08/28/18 08:00 88 18 133/96 (108) 94 3/26/19 13:20 3 Laboratory Tests Test 08/28/18 05:53 White Blood Count 5.0 K/UL (4.8-10.8) Red Blood Count 3.88 M/UL (4.20-5.40) L Hemoglobin 12.3 G/DL (12.0-16.0) Hematocrit 35.8 % (37.0-47.0) L Mean Corpuscular Volume 92 FL (80-99) Mean Corpuscular Hemoglobin 31.6 PG (27.0-31.0) H Mean Corpuscular Hemoglobin Concent 34.3 G/DL (32.0-36.0) Red Cell Distribution Width 12.7 % (11.6-14.8) Platelet Count 344 K/UL (150-450) Mean Platelet Volume 4.9 FL (6.5-10.1) L Neutrophils (%) (Auto) 53.2 % (45.0-75.0) Lymphocytes (%) (Auto) 34.1 % (20.0-45.0) Monocytes (%) (Auto) 7.9 % (1.0-10.0) Eosinophils (%) (Auto) 3.8 % (0.0-3.0) H Basophils (%) (Auto) 1.0 % (0.0-2.0) Sodium Level 137 MMOL/L (136-145) Potassium Level 4.5 MMOL/L (3.5-5.1) Chloride Level 101 MMOL/L (98-107) Carbon Dioxide Level 27 MMOL/L (21-32) Anion Gap 9 mmol/L (5-15) Blood Urea Nitrogen 4 mg/dL (7-18) L Creatinine 0.6 MG/DL (0.55-1.30) Estimat Glomerular Filtration Rate > 60 mL/min (>60) Glucose Level 75 MG/DL (74-106) Calcium Level 8.6 MG/DL (8.5-10.1) Lipase > 2000 U/L (73-393) H Microbiology Date/Time Source Procedure Growth Status 08/27/18 12:36 Back Gram Stain Pending Resulted 08/27/18 12:36 Back Aerobic Culture - Preliminary Resulted Intake and Output 08/27/18 08/28/18 19:00 07:00 Intake Total 1424.876 ml 1200 ml Output Total 40 ml 20 ml Balance 1384.876 ml 1180 ml Intake Oral 400 ml 1200 ml IV Total 1024.876 ml Drainage Total 20 ml 20 ml Estimated Blood Loss 20 ml # Voids 3 4 Objective PHYSICAL EXAMINATION: VITAL SIGNS: On admission, temperature 98.1, pulse of 85, respirations 18, blood pressure 150/113, repeat one is 138/96. GENERAL: The patient is awake, responsive, in no acute distress. HEAD AND NECK: Pupils are equal and reactive to light. Extraocular movements are intact. Neck was supple. No JVD. LUNGS: Good air entry. No wheezes or rales. HEART: S1, S2. Regular rhythm. No gallops. ABDOMEN: Soft, nondistended. Tender on the left side of abdomen. No rebound tenderness. EXTREMITIES: No cyanosis, clubbing, or edema. NEUROLOGIC: Cranial nerves II through XII are grossly intact. Motor is 5/5 in all extremities. Gait is intact. RECTAL: Refused and deferred. GENITOURINARY: Refused and deferred. PSYCHIATRIC: Mood and affect is intact. Assessment/Plan Assessment/Plan ASSESSMENT: 1. Severe abdominal pain, secondary to alcohol-induced pancreatitis. 2. History of alcoholism. 3. Hypokalemia. 4. Hypothyroidism. 5. History of skin cancer, status post resection. 6. Left lower back abscess PLAN: Admit the patient to the medical floor. advance to regular diet per GI. Follow up with Dr. Adams consultation from GI. continue on a banana bag and Librium, and monitor amylase and lipase. Code status, Full Code. DVT prophylaxis, SCD. S/P excision mass of left back 08/27/18-see surgery note. Sanjeev Flor MD Aug 28, 2018 12:33
--- NOTE | 2018-08-28 13:23 | Pulmonology Progress Note ---
Assessment/Plan Problems: (1) Pancreatitis (2) Alcohol abuse Assessment/Plan tolerating diet diet wants to go home Lipase and , Amylase decreasing dc planning home Subjective ROS Limited/Unobtainable: No Constitutional: Reports: no symptoms HEENT: Repors: no symptoms Allergies: Uncoded Allergies: Lactose intolerance (Adverse Reaction, Mild, 08/25/18) Abdominal pain Objective Last 24 Hour Vital Signs Date Time Temp Pulse Resp B/P (MAP) Pulse Ox O2 Delivery O2 Flow Rate FiO2 08/28/18 12:00 98.8 90 18 139/102 (114) 95 08/28/18 10:31 98.3 08/28/18 09:00 Room Air 08/28/18 08:00 98.3 88 18 133/96 (108) 94 08/28/18 04:00 98.2 72 18 107/69 (82) 99 08/28/18 00:00 98.6 79 18 125/81 (96) 98 08/27/18 21:00 Room Air 08/27/18 20:00 98.4 84 17 122/79 (93) 98 08/27/18 16:00 98.1 85 20 131/88 (102) 99 08/27/18 14:40 97.8 77 20 128/89 (102) 98 08/27/18 14:10 97.8 79 20 128/88 (101) 98 08/27/18 13:40 97.7 72 20 142/94 (110) 100 08/27/18 13:25 98.0 Intake and Output 08/27/18 08/28/18 19:00 07:00 Intake Total 1424.876 ml 1200 ml Output Total 40 ml 20 ml Balance 1384.876 ml 1180 ml Intake Oral 400 ml 1200 ml IV Total 1024.876 ml Drainage Total 20 ml 20 ml Estimated Blood Loss 20 ml # Voids 3 4 Objective General Appearance: WD/WN HEENT: normocephalic, atraumatic Respiratory/Chest: chest wall non-tender, lungs clear Breasts: no masses Cardiovascular: normal rate, regularly irregular Abdomen: soft, non tender, non distended Genitourinary: normal external genitalia Extremities: no clubbing Skin: no rash Microbiology Date/Time Source Procedure Growth Status 08/27/18 12:36 Back Gram Stain Pending Resulted 08/27/18 12:36 Back Aerobic Culture - Preliminary Resulted Laboratory Tests 08/28/18 05:53: White Blood Count 5.0, Red Blood Count 3.88L, Hemoglobin 12.3, Hematocrit 35.8L , Mean Corpuscular Volume 92, Mean Corpuscular Hemoglobin 31.6H, Mean Corpuscular Hemoglobin Concent 34.3, Red Cell Distribution Width 12.7, Platelet Count 344, Mean Platelet Volume 4.9L, Neutrophils (%) (Auto) 53.2, Lymphocytes ( %) (Auto) 34.1, Monocytes (%) (Auto) 7.9, Eosinophils (%) (Auto) 3.8H, Basophils (%) (Auto) 1.0, Sodium Level 137, Potassium Level 4.5, Chloride Level 101, Carbon Dioxide Level 27, Anion Gap 9, Blood Urea Nitrogen 4L, Creatinine 0.6, Estimat Glomerular Filtration Rate > 60, Glucose Level 75, Calcium Level 8.6, Lipase > 2000H Current Medications Medications (Trade) Dose Ordered Sig/Chloe Route PRN Reason Start Time Stop Time Status Last Admin Dose Admin Acetaminophen (Tylenol) 650 mg Q4H PRN ORAL fever 08/22/18 21:30 09/21/18 21:29 Al Hydroxide/Mg Hydroxide (Mylanta II) 30 ml Q6H PRN ORAL dyspepsia 08/22/18 21:30 09/21/18 21:29 Cefazolin Sodium 50 ml @ 100 mls/hr Q8H IV 08/27/18 17:00 09/03/18 16:59 08/28/18 09:11 Chlordiazepoxide (Librium) 25 mg Q6H PRN ORAL Agitation 08/22/18 21:30 08/29/18 21:29 08/28/18 09:10 Dextrose (Dextrose 50%) 25 ml Q30M PRN IV Hypoglycemia 08/22/18 21:30 09/21/18 21:29 Dextrose (Dextrose 50%) 50 ml Q30M PRN IV Hypoglycemia 08/22/18 21:30 09/21/18 21:29 Dextrose/ Electrolytes 1,000 ml @ 75 mls/hr [id number] IV 08/23/18 13:00 09/22/18 12:59 08/25/18 05:14 Folic Acid 1 mg/ Magnesium Sulfate 2000 mg/ Multivitamins 10 ml/Sodium Chloride 1,014.2 ml @ 124.876 mls/hr Q24H IV 08/23/18 21:00 09/22/18 20:59 08/27/18 21:33 Heparin Sodium (Porcine) (Heparin 5000 units/ml) 5,000 units EVERY 12 HOURS SUBQ 08/23/18 09:00 09/22/18 08:59 08/27/18 21:37 Hydromorphone HCl (Dilaudid) 0.5 mg Q3H PRN IVP Pain Score 1-3 08/27/18 13:30 09/03/18 13:29 Hydromorphone HCl (Dilaudid) 1 mg Q3H PRN IVP pain score 4-6 08/27/18 13:30 09/03/18 13:29 Hydromorphone HCl (Dilaudid) 2 mg Q3H PRN IVP pain score 7-10 08/27/18 13:30 09/03/18 13:29 08/28/18 12:57 Lidocaine HCl (Xylocaine Jelly 2%) 1 applic Q4H PRN TOPIC For Pain 08/26/18 19:30 09/25/18 19:29 Lorazepam (Ativan 2mg/ml 1ml) 1 mg Q4H PRN IV For Anxiety 08/28/18 01:45 09/04/18 01:44 08/28/18 11:59 Lorazepam (Ativan 2mg/ml 1ml) 2 mg Q1H PRN IV seizures 08/22/18 21:30 08/29/18 21:29 08/24/18 05:48 Ondansetron HCl (Zofran) 4 mg Q3HR PRN IVP Nausea & Vomiting 08/23/18 06:15 09/22/18 06:14 08/27/18 23:50 Polyethylene Glycol (Miralax) 17 gm HSPRN PRN ORAL Constipation 08/22/18 21:30 09/21/18 21:29 Thiamine HCl 100 mg/Dextrose 56 ml @ 112 mls/hr Q24H IV 08/23/18 21:00 09/22/18 20:59 08/27/18 21:32 Zolpidem Tartrate (Ambien) 5 mg HSPRN PRN ORAL Insomnia 08/22/18 21:30 08/29/18 21:29 08/24/18 00:26 Lilo Smart MD Aug 28, 2018 13:23
--- NOTE | 2018-08-28 14:39 | NUR ---
NURSE NOTES: is discharging patient. Pt is disagree, she states that still has a lot of pain, and does not tolerate regular food, can only eat soup. Pt wants to talk to her primary doctor (), and surgeon . Dr. Smart was reminded that pt has a VENKAT drain. notified.
[2018-08-28 16:00] VITALS: BP 133/87
--- NOTE | 2018-08-28 19:30 | NUR ---
NURSE NOTES: Seen pt on initial rounding. Pt sitting up in bed, resp. even, AAOX4. c/o abdominal pain, no nausea noted. will f/u pain med prn. Call light w/in reach.
--- NOTE | 2018-08-28 19:51 | NUR ---
HAND-OFF: Report given to Melody<RN.
[2018-08-28 20:30] VITALS: BP 130/95
[2018-08-28] MEDS: HYDROmorphone 1mg/ml Carpuject IVP PRN (23:33)
[2018-08-29] VITALS: BP 134/88
[2018-08-29] MEDS: ceFAZolin 2gm/50ml Premix 50 ML IV SCH ×2 (00:11→09:01)
[2018-08-29] MEDS: LORazepam Inj 2mg/ml 1ml IV PRN ×2 (02:19→13:20)
[2018-08-29 04:00] VITALS: BP 127/84
--- NOTE | 2018-08-29 07:10 | NUR ---
HAND-OFF: Report given to JERRY Richards[].
[2018-08-29 07:18] LABS: ANION GAP 7 mmol/L (5-15); BLOOD UREA NITROGEN 2 mg/dL (7-18); CALCIUM 9.1 MG/DL (8.5-10.1); CARBON DIOXIDE 31 MMOL/L (21-32); CHLORIDE 101 MMOL/L (98-107); CREATININE 0.6 MG/DL (0.55-1.30); POTASSIUM 4.3 MMOL/L (3.5-5.1); SODIUM 139 MMOL/L (136-145)
--- NOTE | 2018-08-29 07:20 | NUR ---
NURSE NOTES: WALKING ROUNDS DONE WITH OUTGOING RN. PATIENT AWAKE IN CHAIR HAVING BREAKFAST.ASSESSED SURGICAL SITE C/D/I. VENKAT DRAIN SECURED AND TO SUCTION. QUESTIONS ANSWERED NEEDS MET. DISCUSSED PLAN OF CARE FOR THE DAY. PATIENT VERBALIZED UNDERSTANDING. CALL LIGHT WITHIN REACH.
[2018-08-29 07:24] LABS: BASOPHILS % (AUTO) 1.5 % (0.0-2.0); EOSINOPHILS % (AUTO) 3.9 % (0.0-3.0); HEMATOCRIT 34.7 % (37.0-47.0); HEMOGLOBIN 11.6 G/DL (12.0-16.0); LYMPHOCYTES % (AUTO) 37.9 % (20.0-45.0); MEAN CORPUSCULAR VOLUME 91 FL (80-99); MONOCYTES % (AUTO) 11.2 % (1.0-10.0); NEUTROPHILS % (AUTO) 45.4 % (45.0-75.0); PLATELET COUNT 365 K/UL (150-450); RED CELL DISTRIBUTION WIDTH 12.6 % (11.6-14.8); WHITE BLOOD COUNT 4.5 K/UL (4.8-10.8)
[2018-08-29 08:00] VITALS: BP 124/90
[2018-08-29] MEDS: HYDROmorphone 1mg/ml Carpuject IVP PRN ×2 (08:18→11:57)
[2018-08-29] MEDS: Heparin 5000 units/ml inj SUBQ SCH (08:24)
--- NOTE | 2018-08-29 11:32 | GI Progress Note ---
Assessment/Plan Problems: (1) Abscess of buttock ICD Codes: L02.31 - Cutaneous abscess of buttock SNOMED: 64129764 (2) Pancreatitis ICD Codes: K85.90 - Acute pancreatitis without necrosis or infection, unspecified SNOMED: 63969162 Qualifiers: Qualified Codes: K85.20 - Alcohol induced acute pancreatitis without necrosis or infection (3) Alcohol intoxication ICD Codes: F10.929 - Alcohol use, unspecified with intoxication, unspecified SNOMED: 75209894 Qualifiers: Qualified Codes: F10.929 - Alcohol use, unspecified with intoxication, unspecified (4) Alcohol abuse ICD Codes: F10.10 - Alcohol abuse, uncomplicated SNOMED: 53197624 Status: stable Status Narrative Discussed with Dr. Adams Assessment/Plan Assessment - EtOH pancreatitis - Lipase levels remain high - Abdominal pelvis CT reviewed, noted with left buttocks abscess OPERATION PERFORMED: 1. Excision of left lower back mass/foreign body. 2. Complex primary closure with mobilization of surrounding subcutaneous tissue flap for closure and drain placement. Recommendations Okay to DC per GI standpoint Pain management Antibiotics Advance diet Avoid alcohol Trend lipase The patient was seen and examined at bedside and all new and available data was reviewed in the patients chart. I agree with the above findings, impression and plan. (Patient seen earlier today. Signature stamp does not reflect patient encounter time.). - Joce Adams MD Subjective Subjective abdominal pain resolved Pain better tolerated Ordering outside food Objective Last 24 Hour Vital Signs Date Time Temp Pulse Resp B/P (MAP) Pulse Ox O2 Delivery O2 Flow Rate FiO2 08/29/18 09:00 Room Air 08/29/18 08:48 98.8 08/29/18 08:00 98.8 99 18 124/90 (101) 96 08/29/18 04:00 98.5 82 17 127/84 (98) 99 08/29/18 00:00 98.1 93 16 134/88 (103) 99 08/28/18 20:47 Room Air 08/28/18 20:30 98.6 79 18 130/95 (107) 100 08/28/18 16:51 98.8 08/28/18 16:00 97.9 81 18 133/87 (102) 95 08/28/18 12:00 98.8 90 18 139/102 (114) 95 Intake and Output 08/28/18 08/29/18 18:59 06:59 Intake Total 550 ml 3203 ml Output Total 20 ml 75 ml Balance 530 ml 3128 ml Intake Oral 500 ml 1400 ml IV Total 50 ml 1803 ml Drainage Total 20 ml 75 ml # Voids 2 6 Laboratory Tests Test 08/29/18 06:00 White Blood Count 4.5 K/UL (4.8-10.8) L Red Blood Count 3.80 M/UL (4.20-5.40) L Hemoglobin 11.6 G/DL (12.0-16.0) L Hematocrit 34.7 % (37.0-47.0) L Mean Corpuscular Volume 91 FL (80-99) Mean Corpuscular Hemoglobin 30.6 PG (27.0-31.0) Mean Corpuscular Hemoglobin Concent 33.5 G/DL (32.0-36.0) Red Cell Distribution Width 12.6 % (11.6-14.8) Platelet Count 365 K/UL (150-450) Mean Platelet Volume 4.7 FL (6.5-10.1) L Neutrophils (%) (Auto) 45.4 % (45.0-75.0) Lymphocytes (%) (Auto) 37.9 % (20.0-45.0) Monocytes (%) (Auto) 11.2 % (1.0-10.0) H Eosinophils (%) (Auto) 3.9 % (0.0-3.0) H Basophils (%) (Auto) 1.5 % (0.0-2.0) Sodium Level 139 MMOL/L (136-145) Potassium Level 4.3 MMOL/L (3.5-5.1) Chloride Level 101 MMOL/L (98-107) Carbon Dioxide Level 31 MMOL/L (21-32) Anion Gap 7 mmol/L (5-15) Blood Urea Nitrogen 2 mg/dL (7-18) L Creatinine 0.6 MG/DL (0.55-1.30) Estimat Glomerular Filtration Rate > 60 mL/min (>60) Glucose Level 86 MG/DL (74-106) Calcium Level 9.1 MG/DL (8.5-10.1) Lipase > 2000 U/L (73-393) H Height (Feet): 5 Height (Inches): 2.00 Weight (Pounds): 159 General Appearance: WD/WN, no apparent distress, alert Cardiovascular: normal rate Respiratory/Chest: normal breath sounds, no respiratory distress Abdominal Exam: normal bowel sounds, non tender, soft Extremities: normal range of motion, non-tender Maria E Meng NP Aug 29, 2018 11:32
[2018-08-29 12:00] VITALS: BP 117/79
--- NOTE | 2018-08-29 12:09 | Pulmonology Progress Note ---
Assessment/Plan Problems: (1) Pancreatitis (2) Alcohol abuse Assessment/Plan tolerating diet diet wants to go home Lipase and , Amylase decreasing Christoph drained 25 cc only in the last 24 hours. dc planning home Subjective ROS Limited/Unobtainable: No Interval Events: doing better Allergies: Uncoded Allergies: Lactose intolerance (Adverse Reaction, Mild, 08/25/18) Abdominal pain Objective Last 24 Hour Vital Signs Date Time Temp Pulse Resp B/P (MAP) Pulse Ox O2 Delivery O2 Flow Rate FiO2 08/29/18 09:00 Room Air 08/29/18 08:48 98.8 08/29/18 08:00 98.8 99 18 124/90 (101) 96 08/29/18 04:00 98.5 82 17 127/84 (98) 99 08/29/18 00:00 98.1 93 16 134/88 (103) 99 08/28/18 20:47 Room Air 08/28/18 20:30 98.6 79 18 130/95 (107) 100 08/28/18 16:51 98.8 08/28/18 16:00 97.9 81 18 133/87 (102) 95 Intake and Output 08/28/18 08/29/18 18:59 06:59 Intake Total 550 ml 3203 ml Output Total 20 ml 75 ml Balance 530 ml 3128 ml Intake Oral 500 ml 1400 ml IV Total 50 ml 1803 ml Drainage Total 20 ml 75 ml # Voids 2 6 Objective General Appearance: WD/WN HEENT: normocephalic, atraumatic Respiratory/Chest: chest wall non-tender, lungs clear Breasts: no masses Cardiovascular: normal rate, regularly irregular Abdomen: soft, non tender, non distended Genitourinary: normal external genitalia Extremities: no clubbing Skin: no rash Microbiology Date/Time Source Procedure Growth Status 08/27/18 12:36 Back Gram Stain - Final Resulted 08/27/18 12:36 Back Aerobic Culture - Preliminary NO GROWTH AFTER 48 HOURS Resulted Laboratory Tests 08/29/18 06:00: White Blood Count 4.5L, Red Blood Count 3.80L, Hemoglobin 11.6L, Hematocrit 34.7L, Mean Corpuscular Volume 91, Mean Corpuscular Hemoglobin 30.6, Mean Corpuscular Hemoglobin Concent 33.5, Red Cell Distribution Width 12.6, Platelet Count 365, Mean Platelet Volume 4.7L, Neutrophils (%) (Auto) 45.4, Lymphocytes ( %) (Auto) 37.9, Monocytes (%) (Auto) 11.2H, Eosinophils (%) (Auto) 3.9H, Basophils (%) (Auto) 1.5, Sodium Level 139, Potassium Level 4.3, Chloride Level 101, Carbon Dioxide Level 31, Anion Gap 7, Blood Urea Nitrogen 2L, Creatinine 0.6, Estimat Glomerular Filtration Rate > 60, Glucose Level 86, Calcium Level 9.1, Lipase > 2000H Current Medications Medications (Trade) Dose Ordered Sig/Chloe Route PRN Reason Start Time Stop Time Status Last Admin Dose Admin Acetaminophen (Tylenol) 650 mg Q4H PRN ORAL fever 08/22/18 21:30 09/21/18 21:29 Al Hydroxide/Mg Hydroxide (Mylanta II) 30 ml Q6H PRN ORAL dyspepsia 08/22/18 21:30 09/21/18 21:29 Cefazolin Sodium 50 ml @ 100 mls/hr Q8H IV 08/27/18 17:00 09/03/18 16:59 08/29/18 09:01 Chlordiazepoxide (Librium) 25 mg Q6H PRN ORAL Agitation 08/22/18 21:30 08/29/18 21:29 08/28/18 21:47 Dextrose (Dextrose 50%) 25 ml Q30M PRN IV Hypoglycemia 08/22/18 21:30 09/21/18 21:29 Dextrose (Dextrose 50%) 50 ml Q30M PRN IV Hypoglycemia 08/22/18 21:30 09/21/18 21:29 Heparin Sodium (Porcine) (Heparin 5000 units/ml) 5,000 units EVERY 12 HOURS SUBQ 08/23/18 09:00 09/22/18 08:59 08/29/18 08:24 Hydromorphone HCl (Dilaudid) 0.5 mg Q3H PRN IVP Pain Score 1-3 08/27/18 13:30 09/03/18 13:29 Hydromorphone HCl (Dilaudid) 1 mg Q3H PRN IVP pain score 4-6 08/27/18 13:30 09/03/18 13:29 08/29/18 11:57 Hydromorphone HCl (Dilaudid) 2 mg Q3H PRN IVP pain score 7-10 08/27/18 13:30 09/03/18 13:29 08/29/18 03:29 Lidocaine HCl (Xylocaine Jelly 2%) 1 applic Q4H PRN TOPIC For Pain 08/26/18 19:30 09/25/18 19:29 Lorazepam (Ativan 2mg/ml 1ml) 1 mg Q4H PRN IV For Anxiety 08/28/18 01:45 09/04/18 01:44 08/29/18 02:19 Lorazepam (Ativan 2mg/ml 1ml) 2 mg Q1H PRN IV seizures 08/22/18 21:30 08/29/18 21:29 08/24/18 05:48 Ondansetron HCl (Zofran) 4 mg Q3HR PRN IVP Nausea & Vomiting 08/23/18 06:15 09/22/18 06:14 08/27/18 23:50 Polyethylene Glycol (Miralax) 17 gm HSPRN PRN ORAL Constipation 08/22/18 21:30 09/21/18 21:29 Zolpidem Tartrate (Ambien) 5 mg HSPRN PRN ORAL Insomnia 08/22/18 21:30 08/29/18 21:29 08/24/18 00:26 Lilo Smart MD Aug 29, 2018 12:09
--- NOTE | 2018-08-29 12:43 | NUR ---
CASE MANAGEMENT:REVIEW 08/29/18 SI: POD #2 PANCREATITIS. ETOH INTOXICATION S/P EXCISION OF LT LOWER BACK MASS W/VENKAT DRAIN 98.7 80 20 117/79 100% ON RA IS: IV ANCEF Q8HRS IV DILAUDID Q3HRS PRN LIBRIUM PO Q6HRS PRN : MED/SURG STATUS 3 EAST PLAN: MONITOR VENKAT DRAIN OUTPUT ~ 75ML OUT ADVANCE TO REGULAR DIET
--- NOTE | 2018-08-29 13:30 | NUR ---
NURSE NOTES: PATIENT DOING BETTER TODAY.UP AMBULATING INDEPENDENTLY. GAIT STEADY. SEEN BY BOTH PHYSICIANS. VENKAT DRAIN DC'D BY SURGEON. READY FOR DISCHARGE.
--- NOTE | 2018-08-29 14:30 | NUR ---
NURSE NOTES: DISCHARGE INSTRUCTIONS REVIEWED AND GIVEN TO PATIENT WITH EDUCATION FOR HOME. VERBALIZED UNDERSTANDING. ALL BELONGINGS WITH PATIENT. WILL F/U WITH SURGEON AND PCP DISCUSSED UPON DISCHARGE.
--- NOTE | 2018-08-29 14:52 | NUR ---
*-* INSURANCE *-* UPDATED CLINICALS, REVIEW HAVE BEEN FAXED TO: [facility] FAX ALL CLINICALS TO [phone]
--- NOTE | 2018-08-29 15:18 | General Progress Note ---
Progress Note Progress Note no acute events. doing well. drain with minimal serosang output. wound c/d/ i. site well healing drain removed d/c home care instructions given f/u given thank you Jon Dupree Aug 29, 2018 15:18
--- NOTE | 2018-09-02 14:02 | Discharge Summary ---
Discharge Summary Discharge Summary _ DATE OF ADMISSION: 08/22/2018 DATE OF DISCHARGE: 08/29/2018 ADMITTING MD: Dr. Dion Alberto DISCHARGED BY: Dr. Lilo Smart CONSULTANTS: Dr. Lilo Adams [facility] COURSE: Patient is a 37-year-old female, with past medical history significant for skin cancer, status post resection from the abdominal wall, hypothyroidism, who presented to the hospital complaining of abdominal pain associated with nausea and vomiting. She stated history of extensive alcohol abuse with episodes of binge drinking. She stated for the past 2 weeks, she had been drinking a lot and subsequently started to have sharp epigastric terminal pain, 10 out of 10 and nonradiating. On evaluation at ED, blood work showed WBC of 11, hemoglobin and hematocrit were stable. Electrolytes were normal. Lipase was elevated to > 2000. Amylase was 742. Serum alcohol was 60. LFTs were normal. She was given IV fluids. She was given IV pain medications. She was then admitted for evaluation of acute pancreatitis alcohol intoxication. She was started on clear liquid diet. She was given banana bag. She was placed on Librium. She was given IV morphine for pain. She was counseled to avoid alcohol abuse. She had difficulty tolerating liquid diet. Lipase was persistently elevated. Amylase went up to 1100. CT of the abdomen and pelvis showed distended small bowel loops with thickening and inflammatory changes of the bowel. There was a noted 4 x 5 x 4 cm fluid collection in the left buttock subcutaneous soft tissue with rim enhancement and central linear hyperdensity with surrounded by heterogenous fatty density which could potentially be hematoma, abscess or fluid collection.. Surgeon was called. Patient had subcutaneous pain control implant placed in the left lower back. She had a second implant placed later in June 2018. After her second implant was placed, she noted discomfort in the area and initially identified some cellulitis. She was seen as outpatient and was given reassurance, but continued to have discomfort. Recommended possible removal wound care until wound is fully healed by secondary intent. On 08/27/2018, she underwent excision of the left lower back mass/foreign body by Dr. Jon Dupree. James Richey drain was left for drainage. Diet was advanced. Amylase was down trending. Drain had minimal serosanguineous output. Wound was clean, dry and intact. Site was healing well. Drain was eventually removed and patient was cleared for discharge home. FINAL DIAGNOSES: Abdominal pain secondary to acute alcoholic pancreatitis Alcohol abuse Abscess at the left lower back Hypokalemia Hypothyroidism Prior skin CA, status post resection OPERATION PERFORMED on 08/27/2018: 1. Excision of the left lower back mass/foreign body 2. Complex primary closure with mobilization of surrounding subcutaneous tissue flap for closure and drain placement DISPOSITION: Patient was discharged home. DISCHARGE INSTRUCTIONS: Follow-up in a week. I have been assigned to complete a discharge summary on this account, I was not involved with the patient's management. Anisha Cornell NP Sep 02, 2018 14:02
== END 2018-08-29 15:00 | disposition home or self-care (01) | DRG 982 ==
LOC: EMR 18:28 → EDBEDREQ 19:39 → 3E 20:16 → EDBEDREQ 21:45
PROC: 0JX70ZZ Transfer Back Subcutaneous Tissue and Fascia, Open Approach (ICD-10-PCS; principal; 2018-08-27 11:00)
PROC: 0JC70ZZ Extirpation of Matter from Back Subcutaneous Tissue and Fascia, Open Approach (ICD-10-PCS; principal; 2018-08-27 11:00)
DX: K85.20 Alcohol induced acute pancreatitis without necrosis or infection (principal); L02.212 Cutaneous abscess of back [any part, except buttock and flank]; T85.79XA Infection and inflammatory reaction due to other internal prosthetic devices, implants and grafts, initial encounter; E87.6 Hypokalemia; E03.9 Hypothyroidism, unspecified; F10.10 Alcohol abuse, uncomplicated; K76.0 Fatty (change of) liver, not elsewhere classified; Y83.8 Other surgical procedures as the cause of abnormal reaction of the patient, or of later complication, without mention of misadventure at the time of the procedure
CPT/HCPCS: 36415; 74177; 80048; 80053; 80329; 81003; 81025; 82150; 83690; 83735; 84100; 84703; 85025; 85610; 85651; 85730; 86140; 87070; 87075; 87086; 87205; 94003; 94150; 96361; 96374; 96375; 99285; J2405; J8499

== ENCOUNTER 2019-03-27 00:28 | Emergency (ER) | payer BC, OTHER ==
[~2019-03-27] VITALS: Ht 157.5 cm; Wt 68.0 kg
[~2019-03-27 00:28] MED LIST: NKM
[2019-03-27 00:38] VITALS: BP 130/88
--- NOTE | 2019-03-27 00:38 | NUR ---
ED Nurse Note: pt walked in to ED C/O abdominal pain since yesterday. pt also has nausea and vomiting. pt states she is vomiting "bile". pt report having stool in greenish color. pt is alert x4.
--- NOTE | 2019-03-27 00:48 | NUR ---
ED Nurse Note: blood and urine sample sent down to lab
--- NOTE | 2019-03-27 00:51 | Emergency Room Report ---
History of Present Illness General Chief Complaint: Abdominal Pain Source: Patient Present Illness HPI Is a 38-year-old female with a history of alcohol abuse and previous pancreatitis. She presents with complaint abdominal pain with nausea, vomiting and diarrhea. Pain is sharp and crampy. Mostly left upper quadrant and radiate diffusely. Vomiting is now bilious. No blood. Diarrhea is watery. Pain is sharp and crampy. Pain is 8 out of 10. Better with alcohol. No fever chills. No bloody emesis. Similar symptom in the past. She was admitted here in September for the same. Denies any trauma. Allergies: Uncoded Allergies: Lactose intolerance (Adverse Reaction, Mild, 08/25/18) Abdominal pain Patient History Past Medical History: see triage record, old chart reviewed Past Surgical History: other Pertinent Family History: none Social History: Reports: alcohol use; Denies: smoking Last Menstrual Period: 03/18/19 Now: No Immunizations: other Reviewed Nursing Documentation: PMH: Agreed; PSxH: Agreed Nursing Documentation-PMH Past Medical History: No Stated History Hx Cardiac Problems: No Hx Cancer: No Hx Gastrointestinal Problems: No Hx Neurological Problems: No Review of Systems Eye: Denies: eye pain, blurred vision ENT: Denies: ear pain, nose congestion, throat swelling Respiratory: Denies: cough, shortness of breath Cardiovascular: Denies: chest pain, palpitations Gastrointestinal: Reports: abdominal pain, diarrhea, nausea, vomiting Musculoskeletal: Denies: back pain, joint pain Skin: Denies: rash Neurological: Denies: headache, numbness Endocrine: Denies: increased thirst, increased urine Hematologic/Lymphatic: Denies: easy bruising All Other Systems: negative except mentioned in HPI Physical Exam Vital Signs Date Time Temp Pulse Resp B/P (MAP) Pulse Ox O2 Delivery O2 Flow Rate FiO2 03/27/19 00:32 98.1 100 18 133/90 (104) 98 Room Air Vitals normal Sp02 EP Interpretation: reviewed, normal General Appearance: well appearing, no apparent distress, alert Head: normocephalic, atraumatic Eyes: bilateral eye PERRL, bilateral eye EOMI ENT: hearing grossly normal, normal pharynx Neck: full range of motion, supple, no meningismus Respiratory: chest non-tender, lungs clear, normal breath sounds Cardiovascular #1: regular rate, rhythm, no murmur Gastrointestinal: normal bowel sounds, no mass, no organomegaly, no bruit, non- distended, tenderness - Left upper quadrant Musculoskeletal: back normal, gait/station normal, normal range of motion Psychiatric: mood/affect normal Medical Decision Making Diagnostic Impression: Primary Impression: Abdominal pain Qualified Codes: R10.84 - Generalized abdominal pain Additional Impression: Alcohol abuse ER Course This patient presents with abdominal pain with nausea vomiting and diarrhea. No evidence of acute pancreatitis. Better now. Will discharge home. Last Vital Signs Date Time Temp Pulse Resp B/P (MAP) Pulse Ox O2 Delivery O2 Flow Rate FiO2 03/27/19 00:32 98.1 100 18 133/90 (104) 98 Room Air Status: improved Disposition: HOME, SELF-CARE Condition: Stable Scripts Chlordiazepoxide (Chlordiazepoxide HCl) 25 Mg Capsule 25 MG ORAL THREE TIMES A DAY, #15 CAP 0 Refills Prov: Douglas Meng MD 03/27/19 Ondansetron (Zofran) 4 Mg Tablet 4 MG ORAL Q6H PRN for Nausea & Vomiting, #10 TAB 0 Refills Prov: Douglas Meng MD 03/27/19 Referrals: NOT CHOSEN [facility]/,REFERRING (PCP) Patient Instructions: Abdominal Pain, Adult Additional Instructions: Abstain from alcohol. Follow-up with your doctor in 7 days. Go to rehab. Return if symptoms worsen. Douglas Meng MD Mar 27, 2019 00:51
[2019-03-27 00:57] LABS: APPEARANCE,URINE SLIGHTLY CLOUDY; BILIRUBIN, URINE NEGATIVE (NEGATIVE); COLOR,URINE PALE YELLOW; GLUCOSE, URINE (UA) NEGATIVE (NEGATIVE); KETONES,URINE NEGATIVE (NEGATIVE); LEUKOCYTE ESTERASE ,URINE 1+ (NEGATIVE); NITRITE,URINE NEGATIVE (NEGATIVE); PH,URINE 5 (4.5-8.0); PROTEIN,URINE NEGATIVE (NEGATIVE); UROBILINOGEN,URINE NORMAL MG/DL (0.0-1.0)
[2019-03-27] MEDS ORDERED: Morphine Sulfate 4mg/ml Inj (IV USE ONLY) IVP ONE (01:00)
[2019-03-27] MEDS ORDERED: LORazepam Inj 2mg/ml 1ml IV ONE (01:00)
[2019-03-27 01:02] LABS: BASOPHILS % (AUTO) 1.3 % (0.0-2.0); EOSINOPHILS % (AUTO) 1.3 % (0.0-3.0); HEMATOCRIT 45.1 % (37.0-47.0); HEMOGLOBIN 16.3 G/DL (12.0-16.0); LYMPHOCYTES % (AUTO) 33.4 % (20.0-45.0); MEAN CORPUSCULAR VOLUME 86 FL (80-99); MONOCYTES % (AUTO) 7.2 % (1.0-10.0); NEUTROPHILS % (AUTO) 56.9 % (45.0-75.0); PLATELET COUNT 449 K/UL (150-450); RED BLOOD COUNT 5.24 M/UL (4.20-5.40); RED CELL DISTRIBUTION WIDTH 10.5 % (11.6-14.8); WHITE BLOOD COUNT 12.1 K/UL (4.8-10.8)
--- NOTE | 2019-03-27 01:03 | NUR ---
ED Nurse Note: all due meds given at this time. pt is in bed awake, VSS
[2019-03-27 01:08] LABS: ANION GAP 13 mmol/L (5-15); BLOOD UREA NITROGEN 7 mg/dL (7-18); CALCIUM 8.9 MG/DL (8.5-10.1); CARBON DIOXIDE 26 MMOL/L (21-32); CHLORIDE 105 MMOL/L (98-107); CREATININE 0.6 MG/DL (0.55-1.30); POTASSIUM 2.9 MMOL/L (3.5-5.1); SODIUM 144 MMOL/L (136-145)
[2019-03-27 01:12] LABS: ALANINE AMINOTRANSFERASE 27 U/L (12-78); ALBUMIN 3.6 G/DL (3.4-5.0); ALBUMIN/GLOBULIN RATIO 0.8 (1.0-2.7); ALKALINE PHOSPHATASE 94 U/L (46-116); ASPARTATE AMINO TRANSFERASE 22 U/L (15-37); BILIRUBIN,TOTAL 0.4 MG/DL (0.2-1.0)
[2019-03-27] MEDS ORDERED: ZOFRAN4 MG ORAL (01:33)
[2019-03-27] MEDS ORDERED: LIBRIUM25 MG ORAL (01:33)
[2019-03-27 01:59] VITALS: BP 128/80
--- NOTE | 2019-03-27 01:59 | NUR ---
ER DISCHARGE NOTE: Patient is cleared to be discharged per ERMD, pt is aox4, on room air, with stable vital signs. pt was given dc and prescription instructions, pt was able to verbalize understanding, pt id band and iv site removed without complications. pt is able to ambulate with steady gait. pt took all belongings.
== END 2019-03-27 01:59 | disposition home or self-care (01) ==
LOC: EMR 00:48
DX: R10.84 Generalized abdominal pain (principal); F10.10 Alcohol abuse, uncomplicated; E73.9 Lactose intolerance, unspecified
CPT/HCPCS: 36415; 80053; 81003; 81025; 83690; 85025; 87086; 96361; 96374; 96375; J2270; J2405; Z7502; 99284; J7030